=== PATIENT | female | born 1955 | race Caucasian/White ===

== ENCOUNTER → 2016-11-28 | Day surgery (SDC) | payer OTHER ==
[2016-11-16 10:49] VITALS: Ht 165.1 cm; Wt 95.0 kg
[~2016-11-28] VITALS: Ht 165.1 cm; Wt 95.0 kg
[~2016-11-28] MED LIST: 500ML BSS 0.3ML EPI 1:1000PF IRRIG ONE; ACETAMINOPHEN 325 MG TAB PO PRN; AMVISC PLUS 0.8ML SYRINGE INT OCU ONE; ATROPINE SULFATE 0.1 MG/ML 5ML SYR IV PRN; BSS FLUSH ONE; CARB25TA12 PO; CHOL1CAP95; EpHEDrine SULFATE INJ 50 MG/ML AMP IV PRN; EpINEphrine INJ 1MG/ML AMP 1 MG/ML AMP ONE; GLYB5TAB8 PO; HYDR50TA3 PO; LACTATED RINGER'S 1000ML 500 ML IV SCH; LIDOCAINE 3.5% OPH GEL PER APPLICATION CHARGE ONE; LIDOCAINE HCL 1% MPF 2 ML VIAL ONE; MCR5 PO; METF1TAB53 PO; MIDAZOLAM HCL 1 MG/ML 2ML VIAL ONE; NAPR-1169 PO; OCUCOAT 1 ML SOLN IO ONE; PHENYLEPHRINE HCL 10% OP SOLN 5 ML BTL OPL ONE; POTA10TA PO; POVIDONE-IODINE OP SOLN 30 ML BTL ONE; PROPARACAINE 0.5% OP SOLN PER DROP CHARGE OPL SCH; PROPARACAINE HCL 0.5% OP SOLN 15 ML BTL OPL ONE; RANI300T PO; TOBRAMYCIN/DEXAMETHASONE OPH OINT PER APPLN CHARGE ONE
[2016-11-28] MEDS: PHENYLEPHRINE HCL 2.5% OP SOLN PER DROP CHARGE OPL SCH ×2 (06:39→06:44)
[2016-11-28] MEDS: TROPICAMIDE 1% OP SOLN PER DROP CHARGE OPL SCH ×2 (06:40→06:45)
[2016-11-28] MEDS: CYCLOPENTOLATE HCL 1% OP SOLN PER DROP CHARGE OPL SCH ×2 (06:41→06:46)
[2016-11-28] MEDS: KETOROLAC 0.5% OP SOLN PER DROP CHARGE OPL SCH ×2 (06:42→06:47)
[2016-11-28] MEDS: GATIFLOXACIN OP SOLN PER DROP CHARGE OPL SCH ×2 (06:43→06:53)
--- NOTE | 2016-11-28 07:16 | History & Physical Bridge - SC ---
H&P Re-Evaluation Bridge Note: I have examined the patient, reviewed the History & Physical and in the interval since the performance of the History & Physical I have noted the following changes of clinical significance: Diagnosis: Left Cataract Procedure: Left Cataract Removal with femtosecond laser with Lens Implant No changes noted
--- NOTE | 2016-11-28 08:08 | Discharge Instructions-SurgCtr ---
Discharge Instructions Date of Service Nov 28, 2016. Visit Reason for Visit: Cataract Left Eye Discharge Discharge Diagnosis / Problem: cataract Discharge Goals Goal(s): Improve function Medications Stopped Medications Name(s): Has been off Metformin x 3 days. Activity Recommendations Activity Limitations: per Instructions/Follow-up section Anesthesia . Post Anesthesia Instructions: If you have had General Anesthesia or IV Sedation: * Do not drive today. * Resume driving when surgeon permits. * Do not make important decisions or sign legal documents today. * Call surgeon for: 1. Temperature elevations greater than 101 degrees F. 2. Uncontrollable pain. 3. Excessive bleeding. 4. Persistent nausea and vomiting. 5. Medication intolerance (nausea, vomiting or rash). * For nausea and vomiting use only clear liquids such as: tea, soda, bouillon until nausea subsides, then gradually increase diet as tolerated. * If you have any concerns or questions, call your surgeon's office. If physician is unavailable and it is an emergency, call 911 or go to the nearest emergency room. . Instructions / Follow-Up Instructions / Follow-Up ACTIVITY RECOMMENDATIONS: * No strenuous lifting, jogging or running for 4 days * No swimming or yard work for 1 week. * Limited bending is permitted, such as putting on shoes. RETURN TO SCHOOL/WORK: No work until seen by physician in office. MEDICATIONS: Resume previous medications unless instructed otherwise by your surgeon. This includes eye drops for glaucoma. Zymaxid/Gatifloxacin (ahn cap) - one drop every 2 hours until bedtime Nevanac/Ilevro/Prolensa/Ketorolac (vargas cap) - one drop every 4 hours until bedtime Prednisolone (white/pink cap, SHAKE WELL) - one drop every 2 hours until bedtime Starting tomorrow - all 3 drops every 4 hours until seen in the office Optive drops - as needed for discomfort SPECIAL CARE INSTRUCTIONS: * Wear eyeshield when sleeping, for four nights. * You may wear your own glasses or sunglasses while awake. * You may read or watch TV * You may shower and wash your face, but be gentle around the eye and pat dry. * Blurry vision and mild irritation are normal. * Call office if pain is more severe or vision becomes dark at . FOLLOW UP VISIT: Follow-up with Dr Marcovitch tomorrow. Diet Recommendations Home Diet: resume previous diet Procedures Procedures Performed: Left Cataract Phacoemulsification With Intraocular Lens Implant Pending Studies Studies pending at discharge: no Medical Emergencies . Who to Call and When: Medical Emergencies: If at any time you feel your situation is an emergency, please call 911 immediately. . Non-Emergent Contact Non-Emergency issues call your: Road [employer]iler . . "Provider Documentation" section prepared by Dayo Garg.
[2016-11-28 08:10] VITALS: TEMP 36.4
--- NOTE | 2016-11-28 08:10 | [facility] Operative Report ---
Operative Report Date of Service Nov 28, 2016. Operative Report 1. PREOPERATIVE DIAGNOSIS: Cataract of the left eye. 2. POSTOPERATIVE DIAGNOSIS: Same. 3. PROCEDURE: Phacoemulsification with femtosecond laser intraocular lens implantation of the left eye. SURGEON: Dr. Dayo Garg. ANESTHESIA: Topical Lidocaine gel, 1% Non- Preserved intracameral Lidocaine, and monitored intravenous sedation. INDICATIONS FOR THE PROCEDURE: The patient is a 61 - year-old female with a history of cataract of the left eye causing significant visual impairment. The details of the proposed procedure were explained to the patient who asked appropriate questions and following discussion of all risks, benefits and alternatives agreed to have the procedure done. 4. OPERATION AND FINDINGS: DESCRIPTION OF PROCEDURE: After informed consent was obtained, the patient was brought to the Laser room at the [facility]. After docking with the LenSx Laser the capsulorhexis, lens chopping, and primary corneal incision were accomplished. The patient was brought to the Operating Room at the [facility]. The patient was placed in a supine position and then the left eye was prepped and draped in the usual sterile fashion for intraocular surgery. A drop of topical Lidocaine gel was placed in the operative eye. A wire lid speculum was then placed in the fornices. A corneal paracentesis was then created temporally. The Non-Preserved Lidocaine was then instilled into the anterior chamber. The anterior chamber was then pressurized with viscoelastic. The corneal incision was opened with a Vicente spatula. A cystotome was inserted into the anterior chamber and used to verify a continuous curvilinear capsulorrhexis. Hydrodissection was accomplished with balanced salt solution. Phacoemulsification of the lens nucleus was then performed in a standard [id number] technique. The phaco time was 22 seconds with an average power of 5 %. The remaining cortical material was removed using irrigation aspiration. The capsular bag was then filled with viscoelastic. A Bausch & Lomb MI60L +22.0 diopters lens was then loaded into the injector and injected into the capsular bag. The remaining viscoelastic was removed with the irrigation aspiration handpiece. The wound was hydrated and then checked and found to be watertight. The intraocular pressure was checked and found to be adequate. The wire lid speculum was removed and the patient's face was cleaned and dried. TobraDex ointment was placed in the inferior fornix. The patient was discharged to the Recovery Room having tolerated the procedure well. There were no complications. The patient will be seen tomorrow in the office for follow-up. I attest to the content of the Intraoperative Record and any orders documented therein. Any exceptions are noted below.
[2016-11-28 08:28] VITALS: BP 156/86; PULSE 58; O2SAT 99
--- NOTE | 2016-11-28 08:35 | Anesthesia Progress Nt - [facility] ---
Anesthesia Post Op Note Date & Time Nov 28, 2016 at 08:35 Vital Signs Pain Intensity: 0 Vital Signs Past 12 Hours Date Time Temp Pulse Resp B/P Pulse Ox O2 Delivery O2 Flow Rate FiO2 11/28/16 08:28 58 16 156/86 99 Room Air 11/28/16 08:10 36.4 62 16 161/82 99 Room Air 11/28/16 07:47 56 16 160/80 95 11/28/16 07:42 48 16 155/64 97 11/28/16 06:28 36.3 61 16 152/89 98 Room Air Notes Mental Status: alert / awake / arousable, participated in evaluation Pt Amnestic to Procedure: Yes Nausea / Vomiting: adequately controlled Pain: adequately controlled Airway Patency, RR, SpO2: stable & adequate BP & HR: stable & adequate Hydration State: stable & adequate Anesthetic Complications: no major complications apparent
== END | disposition home or self-care (01) ==
LOC: X.SURG 06:02
PROVIDERS: ATTEND Ophthalmology
DX: H26.9 Unspecified cataract (principal)

== ENCOUNTER 2016-12-30 13:31 | Emergency (ER) | payer OTHER ==
[~2016-12-30] VITALS: Ht 165.1 cm; Wt 95.5 kg
[~2016-12-30 13:31] MED LIST changes: -500ML BSS 0.3ML EPI 1:1000PF IRRIG ONE; -ACETAMINOPHEN 325 MG TAB PO PRN; -AMVISC PLUS 0.8ML SYRINGE INT OCU ONE; -ATROPINE SULFATE 0.1 MG/ML 5ML SYR IV PRN; -BSS FLUSH ONE; -CHOL1CAP95; -EpHEDrine SULFATE INJ 50 MG/ML AMP IV PRN; -EpINEphrine INJ 1MG/ML AMP 1 MG/ML AMP ONE; -LACTATED RINGER'S 1000ML 500 ML IV SCH; -LIDOCAINE 3.5% OPH GEL PER APPLICATION CHARGE ONE; -LIDOCAINE HCL 1% MPF 2 ML VIAL ONE; -MIDAZOLAM HCL 1 MG/ML 2ML VIAL ONE; -OCUCOAT 1 ML SOLN IO ONE; -PHENYLEPHRINE HCL 10% OP SOLN 5 ML BTL OPL ONE; -POVIDONE-IODINE OP SOLN 30 ML BTL ONE; -PROPARACAINE 0.5% OP SOLN PER DROP CHARGE OPL SCH; -PROPARACAINE HCL 0.5% OP SOLN 15 ML BTL OPL ONE; -TOBRAMYCIN/DEXAMETHASONE OPH OINT PER APPLN CHARGE ONE
[2016-12-30 13:40] VITALS: TEMP 36.6; Ht 165.1 cm; Wt 95.5 kg
--- NOTE | 2016-12-30 15:32 | DIAGNOSTIC IMAGING REPORT ---
ABDOMEN 2VIEW W/PA CHEST RTN CLINICAL HISTORY: Lower abdominal/rectal pain COMPARISON STUDY: No previous studies for comparison. FINDINGS: The erect chest reveals no free air. There is no focal pulmonary consolidation. Erect and supine views the abdomen reveal moderate fecal retention. There are no transition zones to indicate bowel obstruction. There is scattered colonic air-fluid levels. There are clustered right upper quadrant calcifications, possibly representing gallstones. IMPRESSION: 1. Moderate fecal retention. Correlate clinically in regards to constipation 2. No conventional radiographic evidence of bowel obstruction. No evidence of free air 3. Possible cholelithiasis Electronically signed by: Jose Lin M.D. 12/30/2016 3:30 PM Dictated Date/Time: 12/30/2016 3:28 PM
[2016-12-30] MEDS ORDERED: POLYETHYLENE (MIRALAX) 17 GM PACK PO STA (16:01)
[2016-12-30 18:00] VITALS: BP 142/78; PULSE 70; O2SAT 99
--- NOTE | 2016-12-30 19:23 | EMERGENCY ROOM VISIT NOTE ---
History Report prepared by Aramibchrissie: Kendra Vigil Under the Supervision of: Dr. Leonel Gómez M.D. First contact with patient: 14:57 Chief Complaint: RECTAL PAIN Stated Complaint: BOWEL BLOCKAGE Nursing Triage Summary: Pt presents with rectal pain since last night. Pt states, "I think I am impacted. I took a stool softner and drank some prune juice. I have some loose stuff, but the hard stuff is still there." Last normal bm was 4 days ago. History of Present Illness The patient is a 61 year old female who presents to the Emergency Room with complaints of persistent rectal pain that started last night. She rates her discomfort as an 8/10. She has tried a suppository and states she has had " small bowel movements", but now she is mostly experiencing small outputs of liquid stool. Her last normal bowel movement was 4 days ago. She reports "I can still feel hard stuff blocked up in there". She denies any abdominal pain or vomiting. She does have some low back pain which she thinks is from her constipation. Her only previous abdominal surgery was a hysterectomy several years ago. Source of History: patient Onset: last night Position: other (rectum) Symptom Intensity: 8/10 Timing: other (persistent) Modifying Factors (Relieving): other (suppository) Associated Symptoms: + back pain (low back pain), + nausea, No abdominal pain, No fevers, No vomiting Review of Systems See HPI for pertinent positives & negatives. A total of 10 systems reviewed and were otherwise negative. Past Medical & Surgical Medical Problems: (1) Diabetes mellitus (2) GERD (gastroesophageal reflux disease) Surgical Problems: (1) History of hysterectomy Social History Smoking Status: Never Smoker Alcohol Use: occasionally Drug Use: none Marital Status: Housing Status: lives with family Occupation Status: retired Current/Historical Medications Scheduled Glyburide (Glyburide), 2 TAB PO QAM Glyburide (Micronase), 5 MG PO QPM Hydrochlorothiazide (Hctz), 50 MG PO QAM Metformin Hcl (Glucophage Ext Rel), 1,000 MG PO BID Potassium Chloride (K-Tabs), 1 TAB PO HS Scheduled PRN Carbidopa/Levodopa (Sinemet 25MG/100MG), 1 TAB PO HS PRN for RESTLESS LEG SYNDROME Naproxen (Naprosyn), 500 MG PO BID PRN for Pain Ranitidine Hcl (Zantac), 300 MG PO HS PRN for Indigestion Allergies Coded Allergies: NO KNOWN DRUG ALLERGIES (Verified Allergy, Unknown, ., 11/28/16) Physical Exam Vital Signs Date Time Temp Pulse Resp B/P Pulse Ox O2 Delivery O2 Flow Rate FiO2 12/30/16 18:00 70 18 142/78 99 12/30/16 16:00 82 17 151/80 99 Room Air 12/30/16 13:40 36.6 105 20 156/82 97 Room Air Physical Exam Constitutional: Vital signs reviewed. Eyes: Pupils are equal round reactive to light. Conjunctiva are noninjected. ENT: Pharynx is clear without erythema or exudate. Mucous membranes are moist. Neck supple without meningeal signs. Respiratory: Clear to auscultation bilaterally. Breath sounds are equal bilaterally. Cardiovascular: Regular rate and rhythm. No rubs or gallops. GI: Soft, nondistended and nontender. Bowel sounds are present. Musculoskeletal: No peripheral edema. No lower extremity tenderness. Integumentary: No cyanosis. Neurological: The patient is awake and alert. No focal deficits. Psychiatric: Normal affect. Medical Decision & Procedures ER Provider Diagnostic Interpretation: This X-Ray was reviewed and interpreted by myself and the radiologist. ABDOMEN 2VIEW W/PA CHEST RTN CLINICAL HISTORY: Lower abdominal/rectal pain COMPARISON STUDY: No previous studies for comparison. FINDINGS: The erect chest reveals no free air. There is no focal pulmonary consolidation. Erect and supine views the abdomen reveal moderate fecal retention. There are no transition zones to indicate bowel obstruction. There is scattered colonic air-fluid levels. There are clustered right upper quadrant calcifications, possibly representing gallstones. IMPRESSION: 1. Moderate fecal retention. Correlate clinically in regards to constipation 2. No conventional radiographic evidence of bowel obstruction. No evidence of free air 3. Possible cholelithiasis Electronically signed by: Jose Lin M.D. 12/30/2016 3:30 PM Medications Administered Medications (Trade) Dose Ordered Sig/Damian Route Start Time Stop Time Status Last Admin Dose Admin Polyethylene (Miralax Powder Packet) 17 gm ONE STAT PO 12/30/16 16:01 12/30/16 16:02 DC 12/30/16 17:35 17 GM ED Course 1458: The patient was evaluated in room B8. A complete history and physical exam was performed. 1601: Miralax Powder Packet 17 gm PO. 1620: I reevaluated the patient. I let her know her X-Ray results and we will do an enema. 1740: I reevaluated the patient. She had a large bowel movement and feels much better now. I discussed her discharge instructions and she verbalized complete understanding and agreement. Medical Decision This is a 61-year-old female presents with rectal discomfort. Differential diagnosis includes fecal impaction, constipation, obstipation, bowel obstruction , mass I did perform a limited focused review of portions of the patient's old chart on the electronic medical record. The patient has had no recent pertinent visits to this hospital. I did evaluate the patient as noted above. The patient is presenting with constipation and rectal discomfort. She has no abdominal pain or vomiting although she does state she has some nausea. I did order and personally review the patient's abdominal and chest x-rays as described above. She has significant constipation on her x-ray. There is no signs of free air or obstruction. I did discuss the x-rays with the patient. I did order a soapsuds enema and MiraLAX. She did have a large bowel movement here and felt immediately better. I did advise her to continue MiraLAX at home and to follow up with her doctor. She was discharged in good condition and given return instructions as outlined below. Impression Primary Impression: Fecal impaction Additional Impression: Constipation Scribe Attestation The scribe's documentation has been prepared under my direct and personally reviewed by me in its entirety. I confirm that the note above accurately reflects all work, treatment, procedures, and medical decision making performed by me. Departure Information Dispostion Home / Self-Care Referrals Rainer Bowman PA-C (PCP) Patient Instructions Constipation, My [facility] Additional Instructions You have been examined and treated today on an emergency basis only. This is not a substitute for, or an effort to provide, complete comprehensive medical care. It is impossible to recognize and treat all injuries or illnesses in a single emergency department visit. It is therefore important that you follow up closely with your physician. Call as soon as possible for an appointment. Return for worsening symptoms or if you develop fever, vomiting, abdominal pain or any other concerning symptoms. Problem Qualifiers Additional Impression: Constipation Constipation type: unspecified constipation type Qualified Codes: K59.00 - Constipation, unspecified
[2017-02-01] MEDS ORDERED: CHOL1CAP95 (06:29)
== END 2016-12-30 18:00 | disposition home or self-care (01) ==
LOC: C.EDB 13:32
DX: K59.00 Constipation, unspecified (principal); E11.9 Type 2 diabetes mellitus without complications; K21.9 Gastro-esophageal reflux disease without esophagitis; Z90.710 Acquired absence of both cervix and uterus; Z79.84 Long term (current) use of oral hypoglycemic drugs; Z79.899 Other long term (current) drug therapy

== ENCOUNTER → 2017-02-01 | Day surgery (SDC) | payer OTHER ==
[2017-01-15 11:37] VITALS: Ht 165.1 cm; Wt 95.0 kg
[~2017-02-01] VITALS: Ht 165.1 cm; Wt 95.0 kg
[~2017-02-01] MED LIST changes: +500ML BSS 0.3ML EPI 1:1000PF IRRIG ONE; +ACETAMINOPHEN 325 MG TAB PO PRN; +AMVISC PLUS 0.8ML SYRINGE INT OCU ONE; +ATROPINE SULFATE 0.1 MG/ML 5ML SYR IV PRN; +BSS FLUSH ONE; +CHOL1CAP95; +EpHEDrine SULFATE INJ 50 MG/ML AMP IV PRN; +EpINEphrine INJ 1MG/ML AMP 1 MG/ML AMP ONE; +FENTANYL CITRATE INJ 50 MCG/1 ML 2 ML VIAL IV PRN; +FLUMAZENIL 0.1 MG/1 ML 10 ML VIAL IV PRN; +HYDROmorphone INJ 2 MG/ML SYR/VIAL IV PRN; +LABETALOL HCL IV 5 MG/ML 20ML IV PRN; +LACTATED RINGER'S 1000ML 500 ML IV SCH; +LIDOCAINE 3.5% OPH GEL PER APPLICATION CHARGE ONE; +LIDOCAINE HCL 1% MPF 2 ML VIAL ONE; +MEPERIDINE HCL 25 MG/ML CARP IV PRN; +MIDAZOLAM HCL 1 MG/ML 2ML VIAL ONE; +NALOXONE HCL 0.4 MG/1 ML VIAL/CARP IV PRN; +OCUCOAT 1 ML SOLN IO ONE; +ONDANSETRON INJ 2 MG/ML 2 ML VIAL IV PRN; +PHENYLEPHRINE 100MCG/ML 5ML SYR IV PRN; +POVIDONE-IODINE OP SOLN 30 ML BTL ONE; +PROPARACAINE 0.5% OP SOLN PER DROP CHARGE OPR SCH; +TOBRAMYCIN/DEXAMETHASONE OPH OINT PER APPLN CHARGE ONE
[2017-02-01] MEDS: PHENYLEPHRINE HCL 2.5% OP SOLN PER DROP CHARGE OPR SCH ×2 (06:40→06:46)
[2017-02-01] MEDS: TROPICAMIDE 1% OP SOLN PER DROP CHARGE OPR SCH ×2 (06:41→06:47)
[2017-02-01] MEDS: CYCLOPENTOLATE HCL 1% OP SOLN PER DROP CHARGE OPR SCH ×2 (06:42→06:48)
[2017-02-01] MEDS: KETOROLAC 0.5% OP SOLN PER DROP CHARGE OPR SCH ×2 (06:43→06:49)
[2017-02-01] MEDS: GATIFLOXACIN OP SOLN PER DROP CHARGE OPR SCH ×2 (06:44→06:54)
--- NOTE | 2017-02-01 06:58 | History & Physical Bridge - [place] ---
H&P Re-Evaluation Bridge Note: I have examined the patient, reviewed the History & Physical and in the interval since the performance of the History & Physical I have noted the following changes of clinical significance: No changes noted
--- NOTE | 2017-02-01 07:46 | Discharge Instructions-SurgCtr ---
Discharge Instructions Date of Service February 01, 2017. Visit Reason for Visit: Cataract Right Eye Discharge Discharge Diagnosis / Problem: cataract Discharge Goals Goal(s): Improve function Medications Stopped Medications Name(s): metformin stopped Sunday Activity Recommendations Activity Limitations: per Instructions/Follow-up section Anesthesia . Post Anesthesia Instructions: If you have had General Anesthesia or IV Sedation: * Do not drive today. * Resume driving when surgeon permits. * Do not make important decisions or sign legal documents today. * Call surgeon for: 1. Temperature elevations greater than 101 degrees F. 2. Uncontrollable pain. 3. Excessive bleeding. 4. Persistent nausea and vomiting. 5. Medication intolerance (nausea, vomiting or rash). * For nausea and vomiting use only clear liquids such as: tea, soda, bouillon until nausea subsides, then gradually increase diet as tolerated. * If you have any concerns or questions, call your surgeon's office. If physician is unavailable and it is an emergency, call 911 or go to the nearest emergency room. . Instructions / Follow-Up Instructions / Follow-Up ACTIVITY RECOMMENDATIONS: * No strenuous lifting, jogging or running for 4 days * No swimming or yard work for 1 week. * Limited bending is permitted, such as putting on shoes. RETURN TO SCHOOL/WORK: No work until seen by physician in office. MEDICATIONS: Resume previous medications unless instructed otherwise by your surgeon. This includes eye drops for glaucoma. Zymaxid/Gatifloxacin (ahn cap) - one drop every 2 hours until bedtime Nevanac/Ilevro/Prolensa/Ketorolac (vargas cap) - one drop every 4 hours until bedtime Prednisolone (white/pink cap, SHAKE WELL) - one drop every 2 hours until bedtime Starting tomorrow - all 3 drops every 4 hours until seen in the office Optive drops - as needed for discomfort SPECIAL CARE INSTRUCTIONS: * Wear eyeshield when sleeping, for four nights. * You may wear your own glasses or sunglasses while awake. * You may read or watch TV * You may shower and wash your face, but be gentle around the eye and pat dry. * Blurry vision and mild irritation are normal. * Call office if pain is more severe or vision becomes dark at . FOLLOW UP VISIT: Follow-up with Dr Garg tomorrow. Diet Recommendations Home Diet: resume previous diet Procedures Procedures Performed: Right Cataract Phacoemulsification With Intraocular Lens Implant Pending Studies Studies pending at discharge: no Medical Emergencies . Who to Call and When: Medical Emergencies: If at any time you feel your situation is an emergency, please call 911 immediately. . Non-Emergent Contact Non-Emergency issues call your: Button Riveter . . "Provider Documentation" section prepared by Dayo Garg. .
--- NOTE | 2017-02-01 07:47 | [facility] Operative Report ---
Operative Report Date of Service February 01, 2017. Operative Report 1. PREOPERATIVE DIAGNOSIS: Cataract of the right eye. 2. POSTOPERATIVE DIAGNOSIS: Same. 3. PROCEDURE: Phacoemulsification with intraocular lens implantation of the right eye. SURGEON: Dr. Dayo Garg. ANESTHESIA: Topical Lidocaine gel, 1% Non- Preserved intracameral Lidocaine, and monitored intravenous sedation. INDICATIONS FOR THE PROCEDURE: The patient is a 61 - year-old female with a history of cataract of the right eye causing significant visual impairment. The details of the proposed procedure were explained to the patient who asked appropriate questions and following discussion of all risks, benefits and alternatives agreed to have the procedure done. 4. OPERATION AND FINDINGS: DESCRIPTION OF PROCEDURE: After informed consent was obtained, the patient was brought to the Operating Room at the [facility]. The patient was placed in a supine position and then the right eye was prepped and draped in the usual sterile fashion for intraocular surgery. A drop of topical Lidocaine gel was placed in the operative eye. A wire lid speculum was then placed in the fornices. A corneal paracentesis was then created temporally. The Non-Preserved Lidocaine was then instilled into the anterior chamber. The anterior chamber was then pressurized with viscoelastic. A 2.0 mm clear corneal incision was then created temporally. A cystotome was inserted into the anterior chamber and used to create a tear in the anterior lens capsule. This capsular tear was then used to create a small flap and the flap was dragged in a counterclockwise direction in order to create a continuous curvilinear capsulorrhexis. Hydrodissection was accomplished with balanced salt solution. Phacoemulsification of the lens nucleus was then performed in a standard [id number] technique. The phaco time was 22 seconds with an average power of 7 %. The remaining cortical material was removed using irrigation aspiration. The capsular bag was then filled with viscoelastic. A Bausch & Lomb MI60L +22.0 diopters lens was then loaded into the injector and injected into the capsular bag. The remaining viscoelastic was removed with the irrigation aspiration handpiece. The wound was hydrated and then checked and found to be watertight. The intraocular pressure was checked and found to be adequate. The wire lid speculum was removed and the patient's face was cleaned and dried. TobraDex ointment was placed in the inferior fornix. The patient was discharged to the Recovery Room having tolerated the procedure well. There were no complications. The patient will be seen tomorrow in the office for follow-up. I attest to the content of the Intraoperative Record and any orders documented therein. Any exceptions are noted below.
--- NOTE | 2017-02-01 08:01 | Anesthesia Progress Nt - [facility] ---
Anesthesia Post Op Note Date & Time February 01, 2017 at 08:01 Vital Signs Pain Intensity: 0 Vital Signs Past 12 Hours Date Time Temp Pulse Resp B/P Pulse Ox O2 Delivery O2 Flow Rate FiO2 02/01/17 07:52 36.5 57 16 173/83 97 Room Air 02/01/17 06:30 36.4 55 16 144/83 98 Room Air Notes Mental Status: alert / awake / arousable, participated in evaluation Pt Amnestic to Procedure: Yes Nausea / Vomiting: adequately controlled Pain: adequately controlled Airway Patency, RR, SpO2: stable & adequate BP & HR: stable & adequate Hydration State: stable & adequate Anesthetic Complications: no major complications apparent The patient was told to take her DM meds when she goes home.
[2017-02-01 08:10] VITALS: BP 169/82; PULSE 60; TEMP 36.5; O2SAT 96
== END | disposition home or self-care (01) ==
LOC: X.SURG 06:10
PROVIDERS: ATTEND Ophthalmology
DX: H25.9 Unspecified age-related cataract (principal)

== ENCOUNTER → 2017-12-21 | Outpatient (CLI) | payer OTHER ==
[~2017-12-21] MED LIST changes: -500ML BSS 0.3ML EPI 1:1000PF IRRIG ONE; -ACETAMINOPHEN 325 MG TAB PO PRN; -AMVISC PLUS 0.8ML SYRINGE INT OCU ONE; -ATROPINE SULFATE 0.1 MG/ML 5ML SYR IV PRN; -BSS FLUSH ONE; -EpHEDrine SULFATE INJ 50 MG/ML AMP IV PRN; -EpINEphrine INJ 1MG/ML AMP 1 MG/ML AMP ONE; -FENTANYL CITRATE INJ 50 MCG/1 ML 2 ML VIAL IV PRN; -FLUMAZENIL 0.1 MG/1 ML 10 ML VIAL IV PRN; -HYDROmorphone INJ 2 MG/ML SYR/VIAL IV PRN; -LABETALOL HCL IV 5 MG/ML 20ML IV PRN; -LACTATED RINGER'S 1000ML 500 ML IV SCH; -LIDOCAINE 3.5% OPH GEL PER APPLICATION CHARGE ONE; -LIDOCAINE HCL 1% MPF 2 ML VIAL ONE; -MEPERIDINE HCL 25 MG/ML CARP IV PRN; -MIDAZOLAM HCL 1 MG/ML 2ML VIAL ONE; -NALOXONE HCL 0.4 MG/1 ML VIAL/CARP IV PRN; -OCUCOAT 1 ML SOLN IO ONE; -ONDANSETRON INJ 2 MG/ML 2 ML VIAL IV PRN; -PHENYLEPHRINE 100MCG/ML 5ML SYR IV PRN; -POVIDONE-IODINE OP SOLN 30 ML BTL ONE; -PROPARACAINE 0.5% OP SOLN PER DROP CHARGE OPR SCH; -TOBRAMYCIN/DEXAMETHASONE OPH OINT PER APPLN CHARGE ONE
[2017-12-21 13:15] LABS: ALBUMIN 3.6 gm/dl (3.4-5.0); ALT/SGPT 49 U/L (12-78); AST/SGOT 29 U/L (15-37); BLOOD UREA NITROGEN 13 mg/dl (7-18); CALCIUM 9.3 mg/dl (8.5-10.1); CARBON DIOXIDE 22 mmol/L (21-32); CREATININE 0.91 mg/dl (0.60-1.20); GLUCOSE 234 mg/dl (70-99); POTASSIUM 4.1 mmol/L (3.5-5.1); SODIUM 138 mmol/L (136-145)
[2017-12-21 13:26] LABS: ALKALINE PHOSPHATASE 180 U/L (45-117); CHOLESTEROL 224 mg/dl (0-200); LDL CHOLESTEROL CALCULATED 142 mg/dl; TOTAL PROTEIN 7.1 gm/dl (6.4-8.2)
== END | disposition home or self-care (01) ==
LOC: C.LABPVFM 07:49
PROVIDERS: ATTEND Family Medicine
DX: E78.5 Hyperlipidemia, unspecified (principal)

== ENCOUNTER 2018-01-10 12:28 | Emergency (ER) | payer OTHER ==
[~2018-01-10] VITALS: Ht 162.6 cm; Wt 91.0 kg
[2018-01-10 12:43] VITALS: TEMP 36.5; Ht 162.6 cm; Wt 91.0 kg
[2018-01-10] MEDS ORDERED: SODIUM CHLORIDE 0.9% 1000ML 500 ML IV ONE (13:45)
[2018-01-10] MEDS ORDERED: KETOROLAC TROMETHAMINE 30 MG/ML VIAL IV STA (13:50)
[2018-01-10] MEDS ORDERED: ONDANSETRON INJ 2 MG/ML 2 ML VIAL IV STA (13:50)
[2018-01-10] MEDS ORDERED: OPTIRAY 320 IV PRN (14:00)
--- NOTE | 2018-01-10 14:21 | EMERGENCY ROOM VISIT NOTE ---
History Report prepared by Dioni: Dima Christopher Under the Supervision of: Dr. Mike Almonte M.D. First contact with patient: 13:48 Chief Complaint: BACK PAIN Stated Complaint: BACK PAIN, RIGHT SIDE History of Present Illness The patient is a 62 year old female who presents to the Emergency Room with complaints of worsening right sided back pain starting yesterday. The patient currently rates her pain as an 8/10 in severity. She states that the pain is an ache. She states that she has a history of kidney stones on the right side which passed on their own, and the patient reports that the pain is similar to her last kidney stone. The patient denies any hematuria or pain with urination. The patient states that she took 2 ibuprofen around 0900 this morning, and she states that this did not help with the pain. She notes that she has been having some nausea. The patient states that she has not been lifting anything heavy recently. She states that she has a history of diabetes, and she was recently put on Lantus. Source of History: patient Onset: yesterday Position: back (right side) Symptom Intensity: 8/10 Quality: ache Timing: worsening Associated Symptoms: + nausea, No urinary symptoms Review of Systems See HPI for pertinent positives and negatives. A total of ten systems were reviewed and were otherwise negative. Past Medical & Surgical Medical Problems: (1) Diabetes mellitus (2) GERD (gastroesophageal reflux disease) Surgical Problems: (1) History of hysterectomy Social History Smoking Status: Never Smoker Alcohol Use: occasionally Drug Use: none Marital Status: Housing Status: lives with family Occupation Status: retired Current/Historical Medications Scheduled Glyburide (Glyburide), 2 TAB PO QAM Glyburide (Micronase), 5 MG PO QPM Hydrochlorothiazide (Hctz), 50 MG PO QAM Insulin Glargine (Lantus Solostar), 10 UNITS SC QPM Metformin Hcl (Glucophage Ext Rel), 1,000 MG PO BID Potassium Chloride (K-Tabs), 1 TAB PO HS Scheduled PRN Carbidopa/Levodopa (Sinemet 25MG/100MG), 1 TAB PO HS PRN for RESTLESS LEG SYNDROME Naproxen (Naprosyn), 500 MG PO BID PRN for Pain Ranitidine Hcl (Zantac), 300 MG PO HS PRN for Indigestion Miscellaneous Medications Cholecalciferol (Vitamin D3) Allergies Coded Allergies: NO KNOWN DRUG ALLERGIES (Verified Allergy, Unknown, ., 01/10/18) Physical Exam Vital Signs Date Time Temp Pulse Resp B/P (MAP) Pulse Ox O2 Delivery O2 Flow Rate FiO2 01/10/18 16:29 70 18 190/90 98 192/81 01/10/18 15:15 64 18 168/94 98 Room Air 01/10/18 12:43 36.5 78 16 157/92 98 Room Air Physical Exam GENERAL: Awake, alert, fatigued, uncomfortable-appearing, in no distress HENT: Normocephalic, atraumatic. Oropharynx unremarkable. EYES: Normal conjunctiva. Sclera non-icteric. NECK: Supple. No nuchal rigidity. FROM. No JVD. RESPIRATORY: Clear to auscultation. CARDIAC: Regular rate, normal rhythm. Extremities warm and well perfused. Pulses equal. ABDOMEN: Soft, non-distended. No tenderness to palpation. No rebound or guarding. No masses. RECTAL: Deferred. MUSCULOSKELETAL: Mild right CVA tenderness. Chest examination reveals no tenderness. The back is symmetrical on inspection without obvious abnormality. No joint edema. LOWER EXTREMITIES: Calves are equal size bilaterally and non-tender. No edema. No discoloration. NEURO: Normal sensorium. No sensory or motor deficits noted. SKIN: No rash or jaundice noted. Medical Decision & Procedures ER Provider Diagnostic Interpretation: Radiology results as stated below per my review and radiologist interpretation: ABD/PELVIS IV CONTRAST ONLY CLINICAL HISTORY: 62 years-old Female presenting with right flank pain. TECHNIQUE: Multidetector CT of the abdomen and pelvis was performed after the administration of intravenous contrast. IV contrast: 93 mL of Optiray 320. A dose lowering technique was used consistent with the principles of ALARA (as low as reasonably achievable). COMPARISON: None. CT DOSE (mGy.cm): The estimated cumulative dose is 984.90 mGy.cm. 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 Lung bases: Minimal basilar opacities, likely atelectasis. Normal heart size. No pericardial or pleural effusion. Liver: Normal morphology. No liver lesion. Patent hepatic vasculature. Biliary: Mild intrahepatic biliary ductal prominence centrally. No extrahepatic bladder ductal dilatation. Gallbladder contains gallstones. Pancreas: The pancreatic tail is either atrophic or surgically absent. Spleen: Normal. Adrenal glands: Normal. Kidneys and ureters: Well-defined hypodensity in the left kidney likely stable cyst. Punctate nonobstructing calculus in the left kidney. No hydronephrosis. Mild urothelial thickening and periureteral fat stranding suggested along the courses of the ureters greater on the right. Bladder: Circumferential bladder wall thickening. Pelvic organs: Uterus surgically absent. Bowel: Moderate stool burden in the rectosigmoid colon. No bowel obstruction. Peritoneal cavity: No free fluid or intraperitoneal gas. Lymph nodes: Few enlarged lymph nodes in the mark hepatis and portacaval region, an index node measuring 8 mm in the short axis (series 3 image 113). No additional sites in the abdomen or pelvis of enlarged lymph nodes. Vasculature: Atherosclerosis of the normal caliber abdominal aorta. IVC patent. Abdominal wall: Postsurgical changes of the infraumbilical abdominal wall. A surgical mesh may be in place. Nonspecific body wall edema. Musculoskeletal: Degenerative changes of the spine. IMPRESSION: 1. Circumferential bladder wall thickening and mild urothelial thickening and periureteral fat stranding. Subtle findings could suggest cystitis with upper tract involvement or, less likely, recently passed calculus. 2. Nonobstructive left renal calculus. 3. Cholelithiasis. Mild central intrahepatic biliary ductal dilatation suggested. No CT evidence of extrahepatic ductal dilatation or choledocholithiasis. 4. Suspicious lymph node enlargement in the mark hepatis and portacaval regions. These may be reactive. Attention on follow-up. Electronically signed by: James Ballard M.D. 01/10/2018 3:52 PM Dictated Date/Time: 01/10/2018 3:31 PM Laboratory Results 01/10/18 14:05 01/10/18 14:05 Test 01/10/18 14:05 Red Blood Count 4.59 M/uL (4.2-5.4) Mean Corpuscular Volume 90.2 fL (80-100) Mean Corpuscular Hemoglobin 30.1 pg (25-34) Mean Corpuscular Hemoglobin Concent 33.3 g/dl (32-36) RDW Standard Deviation 43.0 fL (36.4-46.3) RDW Coefficient of Variation 13.2 % (11.5-14.5) Mean Platelet Volume 11.3 fL (7.4-10.4) Urine Color YELLOW Urine Appearance CLOUDY (CLEAR) Urine pH 5.0 (4.5-7.5) Urine Specific [place] 1.019 (1.000-1.030) Urine Protein NEG (NEG) Urine Glucose (UA) NEG (NEG) Urine Ketones NEG (NEG) Urine Occult Blood NEG (NEG) Urine Nitrite NEG (NEG) Urine Bilirubin NEG (NEG) Urine Urobilinogen NEG (NEG) Urine Leukocyte Esterase TRACE (NEG) Urine WBC (Auto) 1-5 /hpf (0-5) Urine RBC (Auto) 0-4 /hpf (0-4) Urine Hyaline Casts (Auto) 1-5 /lpf (0-5) Urine Epithelial Cells (Auto) 20-30 /lpf (0-5) Urine Bacteria (Auto) NEG (NEG) Urine Crystals CALCIUM OXALATE (NONE Anion Gap 5.0 mmol/L (3-11) Est Creatinine Clear Calc Drug Dose 65.1 ml/min Estimated GFR () 71.7 Estimated GFR (Non- 61.8 BUN/Creatinine Ratio 15.3 (10-20) Calcium Level 9.3 mg/dl (8.5-10.1) Total Bilirubin 0.6 mg/dl (0.2-1) Direct Bilirubin 0.2 mg/dl (0-0.2) Aspartate Amino Transf (AST/SGOT) 25 U/L (15-37) Alanine Aminotransferase (ALT/SGPT) 31 U/L (12-78) Alkaline Phosphatase 151 U/L (45-117) Total Protein 6.6 gm/dl (6.4-8.2) Albumin 3.7 gm/dl (3.4-5.0) Laboratory results reviewed by me Medications Administered Medications (Trade) Dose Ordered Sig/Damina Route Start Time Stop Time Status Last Admin Dose Admin Sodium Chloride 500 ml @ 999 mls/hr Q31M ONCE IV 01/10/18 13:45 01/10/18 14:15 DC 01/10/18 14:21 999 MLS/HR Ketorolac Tromethamine (Toradol Inj) 15 mg NOW STAT IV 01/10/18 13:50 01/10/18 13:54 DC 01/10/18 14:21 15 MG Ondansetron HCl (Zofran Inj) 4 mg NOW STAT IV 01/10/18 13:50 01/10/18 13:54 DC 01/10/18 14:21 4 MG ED Course 1348: The patient was evaluated in room B9. A complete history and physical exam was performed. 1610: I reevaluated the patient. Discussed results and discharge instructions: She verbalized understanding and agreement. The patient is ready for discharge. Medical Decision I reviewed the patient's past medical history, medications, and the nursing notes as described above. Differential diagnosis: Etiologies such as renal colic, appendicitis, diverticulitis, mesenteric ischemia, aortic pathology, infections, inflammatory bowel disease, PUD, biliary pathology, UTI, as well as others were entertained. The patient is a 62-year-old woman who presents emergency department with right- sided flank pain per hpi. On arrival the patient is in no acute distress, afebrile stable vital signs. She has mild right CVA tenderness. CBC within normal limits. UA negative for infection. Labs otherwise unremarkable. CT scan negative for any acute obstructing stone however does demonstrates circumferential bladder wall thickening and mild urothelial thickening and right periureteral fat stranding that could be consistent with infection versus recently passed stone. Given that the patient's UA does not show infection symptoms likely related to passed stone, given that the patient's symptoms have resolved upon reevaluation after IV fluid hydration and Toradol. Reports that she feels back to normal. Patient also hypertensive likely related to her initial discomfort will follow up with her PCP regarding this. Findings and plan for follow-up reviewed with patient. Patient agreeable and d/c'd per discharge instructions. Medication Reconcilliation Current Medication List: was personally reviewed by me Blood Pressure Screening Patient's blood pressure: Elevated blood pressure Blood pressure disposition: Elevated BP felt to be situational Impression Primary Impression: Right flank pain Scribe Attestation The scribe's documentation has been prepared under my direction and personally reviewed by me in its entirety. I confirm that the note above accurately reflects all work, treatment, procedures, and medical decision making performed by me. Departure Information Dispostion Home / Self-Care Referrals Cecilia Gorman M.D. (PCP) Forms HOME CARE DOCUMENTATION FORM, IMPORTANT VISIT INFORMATION Patient Instructions ED Flank Pain Uncertain Cause, Kidney Stones, My [facility] Additional Instructions Please follow up with your primary care physician in the next 1-3 days for re- evaluation. Your symptoms are possibly due to a passed kidney stone. Otherwise, your exam, lab results, and CT scan did not show signs of an emergent condition at this time. Acetaminophen or ibuprofen for pain and fevers as needed. Drink plenty of fluids to ensure hydration. Return to the emergency department for worsening symptoms as described in the accompanying instructions.
[2018-01-10] MEDS ORDERED: INSDGIPEN SC (14:31)
[2018-01-10 14:37] LABS: HEMATOCRIT 41.4 % (37-47); HEMOGLOBIN 13.8 g/dL (12.0-16.0); MEAN CELL VOLUME 90.2 fL (80-100); MEAN CORPUSCULAR HEMOGLOBIN 30.1 pg (25-34); MEAN CORPUSCULAR HGB CONC 33.3 g/dl (32-36); MEAN PLATELET VOLUME 11.3 fL (7.4-10.4); PLATELET COUNT 169 K/uL (130-400); RED CELL DISTRIBUTION WIDTH CV 13.2 % (11.5-14.5); WHITE BLOOD COUNT 6.24 K/uL (4.8-10.8)
[2018-01-10 15:02] LABS: ALBUMIN 3.7 gm/dl (3.4-5.0); CALCIUM 9.3 mg/dl (8.5-10.1); CREATININE 0.98 mg/dl (0.60-1.20); POTASSIUM 3.5 mmol/L (3.5-5.1)
[2018-01-10 15:04] LABS: TOTAL PROTEIN 6.6 gm/dl (6.4-8.2)
--- NOTE | 2018-01-10 15:53 | DIAGNOSTIC IMAGING REPORT ---
ABD/PELVIS IV CONTRAST ONLY CLINICAL HISTORY: 62 years-old Female presenting with right flank pain. TECHNIQUE: Multidetector CT of the abdomen and pelvis was performed after the administration of intravenous contrast. IV contrast: 93 mL of Optiray 320. A dose lowering technique was used consistent with the principles of ALARA (as low as reasonably achievable). COMPARISON: None. CT DOSE (mGy.cm): The estimated cumulative dose is 984.90 mGy.cm. 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 Lung bases: Minimal basilar opacities, likely atelectasis. Normal heart size. No pericardial or pleural effusion. Liver: Normal morphology. No liver lesion. Patent hepatic vasculature. Biliary: Mild intrahepatic biliary ductal prominence centrally. No extrahepatic bladder ductal dilatation. Gallbladder contains gallstones. Pancreas: The pancreatic tail is either atrophic or surgically absent. Spleen: Normal. Adrenal glands: Normal. Kidneys and ureters: Well-defined hypodensity in the left kidney likely stable cyst. Punctate nonobstructing calculus in the left kidney. No hydronephrosis. Mild urothelial thickening and periureteral fat stranding suggested along the courses of the ureters greater on the right. Bladder: Circumferential bladder wall thickening. Pelvic organs: Uterus surgically absent. Bowel: Moderate stool burden in the rectosigmoid colon. No bowel obstruction. Peritoneal cavity: No free fluid or intraperitoneal gas. Lymph nodes: Few enlarged lymph nodes in the mark hepatis and portacaval region, an index node measuring 8 mm in the short axis (series 3 image 113). No additional sites in the abdomen or pelvis of enlarged lymph nodes. Vasculature: Atherosclerosis of the normal caliber abdominal aorta. IVC patent. Abdominal wall: Postsurgical changes of the infraumbilical abdominal wall. A surgical mesh may be in place. Nonspecific body wall edema. Musculoskeletal: Degenerative changes of the spine. IMPRESSION: 1. Circumferential bladder wall thickening and mild urothelial thickening and periureteral fat stranding. Subtle findings could suggest cystitis with upper tract involvement or, less likely, recently passed calculus. 2. Nonobstructive left renal calculus. 3. Cholelithiasis. Mild central intrahepatic biliary ductal dilatation suggested. No CT evidence of extrahepatic ductal dilatation or choledocholithiasis. 4. Suspicious lymph node enlargement in the mark hepatis and portacaval regions. These may be reactive. Attention on follow-up. Electronically signed by: James Ballard M.D. 01/10/2018 3:52 PM Dictated Date/Time: 01/10/2018 3:31 PM
[2018-01-10 16:29] VITALS: BP 192/81; PULSE 70; O2SAT 98
== END 2018-01-10 16:29 | disposition home or self-care (01) ==
LOC: C.EDB 12:29
DX: R10.9 Unspecified abdominal pain (principal); R03.0 Elevated blood-pressure reading, without diagnosis of hypertension; R11.0 Nausea; E11.9 Type 2 diabetes mellitus without complications; K21.9 Gastro-esophageal reflux disease without esophagitis; Z87.442 Personal history of urinary calculi; Z79.4 Long term (current) use of insulin; Z79.84 Long term (current) use of oral hypoglycemic drugs; Z79.899 Other long term (current) drug therapy

== ENCOUNTER 2020-12-18 14:10 | Inpatient (IN) ==
--- NOTE | 2020-12-18 14:47 | Emergency Department Note ---
Impression & Plan Precordial chest pain, Hypertension, SOB (shortness of breath), Back pain ED Provider Note NAME: BRITTNI THAKUR AGE: 65 SEX: F : 1955 ARRIVES VIA: Ambulance INFORMANT: [Patient] ED PROVIDER(S): [Octavio Alcantara MD] CHIEF COMPLAINT: Chest pain HISTORY OF PRESENT ILLNESS: Patient is a 65-year-old female who presents to the ED with back and chest and shoulder pain. The pain began when she was sitting on her recliner. The pain basically paralyzed her and was a 10/10. She was short of breath, nauseated and clammy. Patient states that EMS was summoned. On the way here, she was given 4 baby aspirin. She currently has minimal to no pain. The patient states that she has no history of coronary disease. She admits that she was pushing a couch in chair around earlier today, she had no trouble though with this activity. There has been no cough or congestion. She has been in baseline health. She does not have any back issues diagnosed previously. REVIEW OF SYSTEMS: See HPI for pertinent positives and negatives. A total of ten systems were reviewed and were otherwise negative. PMHx/PSHx: See Below SOCIAL HISTORY: See Below. PHYSICAL EXAM: GENERAL: Patient is in no acute distress. HEENT: No acute trauma, normocephalic atraumatic, mucous membranes moist, no nasal congestion, no scleral icterus. NECK: No stridor, no adenopathy, no meningismus, trachea is midline. LUNGS: Clear to auscultation bilaterally, no wheeze, no rhonchi, breath sounds equal. HEART: Without murmurs gallops or rubs, regular rate and rhythm. ABDOMEN: Soft, nontender, bowel sounds positive, no hernias, no peritonitis. EXTREMITIES: No cyanosis or edema, full range of motion of all the joints without pain or difficulty, no signs for acute trauma. NEUROLOGIC: Oriented x 3, no acute motor or sensory deficits, no focal weakness. SKIN: No rash, no jaundice, no diaphoresis. Back: Nontender thoracic or lumbar back. No increased pain with sitting up or lying flat. DIFFERENTIAL DIAGNOSIS: Cardiac ischemia, aortic dissection, pulmonary embolism, pneumothorax, pneumonia, pericarditis, myocarditis, esophageal rupture, GERD, cholecystitis, pancreatitis, musculoskeletal, as well as other pathologies. EMERGENCY DEPARTMENT COURSE/PROCEDURES: ECG: Indication was chest pain. ECG shows a normal sinus rhythm with a rate of 78. The QTc is 449. There is evidence for a potential old anterior lateral infarct as well as a potential old inferior infarct. Compared to an ECG from 12 September 2020, the old infarcts appear new. Continuous Cardiac Monitoring: An order was placed for continuous cardiac monitoring. The monitor shows a rate of 75 with normal sinus rhythm. MEDICAL DECISION MAKING: There is no leukocytosis or worrisome anemia. There is a normal platelet count. No significant electrolyte abnormality or kidney failure. No concerning liver enzyme elevation. ECG shows a sinus rhythm, no acute ischemia. Cardiac enzyme testing x1 is not consistent with acute cardiac injury. There is no evidence for pancreatitis by our testing. Urinalysis does not show infection. Covid and influenza testing returned negative. Chest film did not show pneumonia, mediastinal widening or CHF. Chest and abdominal CT scans do not show any evidence for aortic dissection or aneurysm. The patient was given nitroglycerin paste. This was given for cardio protective purposes. She had already received oral aspirin. She was given oral Tylenol for a headache that developed because of the nitroglycerin. The patient presents hypertensive. She had chest pain and back pain. She was clammy and short of breath. She does have some cardiac risk factors. I do think further cardiac work-up is warranted in the hospital setting. I spoke to the patient and rehabilitation caseworker. The on-call hospitalist was consulted. Past Med/Surg History Medical History COVID-19 virus infection ASYMTOMATIC 01/2020-NO RESIDUAL EFFECTS Diabetes mellitus Hyperlipidemia Obesity Surgical History History of colonoscopy History of esophagogastroduodenoscopy (EGD) History of hysterectomy AND APPENDECTOMY History of knee surgery LEFT History of liver biopsy (10/28/20) Laparoscopic Cholecystectomy with Intraoperative Cholangiogram, [place] Liver Biopsy of Right Lobe Dr. Ring 10/28/2020 Hx laparoscopic cholecystectomy (10/28/20) Laparoscopic Cholecystectomy with Intraoperative Cholangiogram, [place] Liver Biopsy of Right Lobe Dr. Ring 10/28/2020 Hx of cataract surgery R/L S/P appendectomy Family History Father Brain tumor Grandmother (Maternal) Diabetes Mother Hypertension Daughter Family history of diabetes mellitus Denies family history of Ovarian cancer Prostate cancer Myocardial infarction Breast cancer Colorectal cancer Social History Smoking Status: Never smoker Second Hand Exposure: No; Hx Alcohol Use: No Hx Substance Use: No Preferred Language: Croatian Communication Ability: Effective Visual Impairment: No Limitations Hearing Ability: Normal Metal Stamper Required: No Beliefs That Will Affect Care: None marital status: / Current Living Situation: Family current occupational status: employed Other Information That Helps Us Care for You: No Feels Safe at Home: Yes Safety Concerns: Feels Safe At This Time Physical Activity Frequency: 3-4 Times per Week Seatbelt Use: always Assistive Devices: Glasses Allergies Allergies Allergy/AdvReac Type Severity Reaction Status Date / Time sitagliptin [From ] Allergy Unknown HEADACHE Verified 12/18/20 14:59 VOMITING Home Meds Home Medications Medication Instructions Recorded Confirmed ezetimibe [Zetia] 10 mg PO QAM 09/22/20 12/18/20 aspirin [Aspir-81] 324 mg PO DAILY PRN 12/18/20 12/18/20 Previous Rx's Medication Instructions Recorded metformin 1,000 mg tablet 1,000 mg PO BID #180 tab 11/25/19 carbidopa 25 mg-levodopa 100 mg 1 tab PO HS PRN #90 tab 09/14/20 tablet aspirin 81 mg tablet,delayed 81 mg PO DAILY #30 tab 10/18/20 release insulin NPH-regular 70-30 U-100 17 unit SQ BID #15 ml 11/19/20 insulin 100 unit/mL subcutaneous pen Results & Data (ED) Vital Signs Vital Signs - 24 hr 12/18/20 14:19 12/18/20 15:21 12/18/20 16:19 Temperature 36.5 C Temperature Source Oral Pulse Rate 75 Pulse Rate [Apical] 75 73 Pulse Rhythm [Apical] Regular Pulse Strength [Apical] Normal Respiratory Rate 22 18 Respiratory Effort / Characteristics Non-Labored Spontaneous Non-Labored Spontaneous Respiratory Depth Normal Normal Respiratory Pattern Regular Regular Blood Pressure 191/105 H Blood Pressure [Right Arm] 191/105 H 207/92 H Blood Pressure Mean 133 Blood Pressure Mean [Right Arm] 133 130 Blood Pressure Position [Right Arm] Lying Pulse Oximetry 97 98 98 Oxygen Delivery Method Room Air Room Air Room Air Sepsis Recent Fever Within 48 Hours No Sepsis New/Unexplained Change in Mental Status No Sepsis Action Taken by Nursing No Action Required 12/18/20 18:12 12/18/20 18:40 Temperature Temperature Source Pulse Rate Pulse Rate [Apical] 77 78 Pulse Rhythm [Apical] Regular Regular Pulse Strength [Apical] Normal Normal Respiratory Rate 20 20 Respiratory Effort / Characteristics Non-Labored Spontaneous Non-Labored Spontaneous Respiratory Depth Normal Normal Respiratory Pattern Blood Pressure Blood Pressure [Right Arm] 207/102 H 178/120 H Blood Pressure Mean Blood Pressure Mean [Right Arm] 137 139 Blood Pressure Position [Right Arm] Lying Lying Pulse Oximetry 96 98 Oxygen Delivery Method Room Air Room Air Sepsis Recent Fever Within 48 Hours Sepsis New/Unexplained Change in Mental Status Sepsis Action Taken by Assisted Medications Current Medication List: was personally reviewed by me Laboratory Data Attestation: I reviewed the patient's lab results. Result diagrams: 12/18/20 15:20 12/18/20 15:20 Lab Results 12/18/20 12/18/20 12/18/20 Range/Units 15:20 15:20 15:21 WBC 8.15 (4.8-10.8) K/uL RBC 4.52 (4.2-5.4) M/uL Hgb 13.8 (12.0-16.0) g/dL Hct 40.2 (37-47) % MCV 88.9 (80-100) fL MCH 30.5 (25-34) pg MCHC 34.3 (32-36) g/dL RDW Std Deviation 43.1 (36.4-46.3) fL RDW Coeff of Artemio 13.2 (11.5-14.5) % Plt Count 135 (130-400) K/uL MPV 12.0 H (7.4-10.4) fL Immature Gran % (Auto) 1.8 % Neut % (Auto) 77.1 % Lymph % (Auto) 14.8 % [place] % (Auto) 5.5 % Eos % (Auto) 0.7 % Baso % (Auto) 0.1 % Neut # (Auto) 6.27 (1.4-6.5) K/uL Lymph # (Auto) 1.21 (1.2-3.4) K/uL [place] # (Auto) 0.45 (0.11-0.59) K/uL Eos # (Auto) 0.06 (0-0.5) K/uL Baso # (Auto) 0.01 (0-0.2) K/uL Immature Gran # (Auto) 0.15 H (0.00-0.02) K/uL Sodium 142 (136-145) mmol/L Potassium 3.8 (3.5-5.1) mmol/L Chloride 114 H (98-107) mmol/L Carbon Dioxide 22 (21-32) mmol/L Anion Gap 6.0 (3-11) BUN 17 (7-18) mg/dl Creatinine 0.99 (0.6-1.2) mg/dl Est Cr Clr Drug Dosing 59.9 ml/min Est GFR ( Amer) 69.3 Est GFR (Non-Af Amer) 59.8 BUN/Creatinine Ratio 17.3 (10-20) Glucose 227 H (70-99) mg/dl Calcium 9.0 (8.5-10.1) mg/dl Magnesium 2.2 (1.8-2.4) mg/dl Total Bilirubin 0.6 (0.2-1) mg/dl AST 20 (15-37) U/L ALT 31 (12-78) U/L Alkaline Phosphatase 115 (45-117) U/L Troponin I < 0.015 (0-0.045) ng/ml Total Protein 6.9 (6.4-8.2) gm/dl Albumin 3.3 L (3.4-5.0) gm/dl Globulin 3.6 (2.5-4.0) gm/dl Albumin/Globulin Ratio 0.9 (0.9-2) Lipase 223 (73-393) U/L TSH 1.420 (0.300-4.500) uIu/ml Random Cortisol 7.76 mcg/dl Administered Medications Discontinued Medications Acetaminophen (Acetaminophen 500 Mg Tab) 1,000 mg PO NOW STA Stop: 12/18/20 18:10 Last Admin: 12/18/20 18:26 Dose: 1,000 mg Documented by: [id number] Clonidine HCl (Clonidine Hcl 0.1 Mg Tab) 0.1 mg PO NOW ONE Stop: 12/18/20 19:16 Last Admin: 12/18/20 19:39 Dose: 0.1 mg Documented by: [id number] Ioversol (Optiray 320 125ml) 119 ml IV ONCE ONE Stop: 12/18/20 17:03 Last Admin: 12/18/20 17:02 Dose: 119 ml Documented by: [id number] Labetalol HCl (Labetalol Hcl Iv 5 Mg/Ml 20ml) Confirm Administered Dose 5 mg IV .STK-MED ONE Stop: 12/18/20 18:16 Last Admin: 12/18/20 18:26 Dose: 5 mg Documented by: [id number] Cosigned by: [id number] Nitroglycerin (Nitroglycerin 2% Ointment 30gm Tube) 1 inch EXT NOW STA Stop: 12/18/20 16:21 Last Admin: 12/18/20 17:44 Dose: 1 inch Documented by: [id number] Imaging Data Radiologist's Impression: XR chest 1V portable HISTORY: Atypical Chest Pain COMPARISON: 09/20/2020. FINDINGS: The lungs are clear. Cardiac silhouette is normal in size. No pleural effusions. No pneumothorax. IMPRESSION: No acute process. CHEST CTA for AORTIC DISSECTION, ABDOMEN AND PELVIS CTA CT DOSE: 2604.67 mGy.cm HISTORY: Atypical chest pain. Back pain. Pain extending into hips. Assess for an aortic dissection. TECHNIQUE: Multiaxial CT images of the chest, abdomen, and pelvis were performed both before and after the intravenous administration of contrast to evaluate the aorta. Maximal intensity projection images were also obtained. A dose lowering technique was utilized adhering to the principles of ALARA. COMPARISON STUDY: Abdomen and pelvis CT 10/25/2018. FINDINGS: Chest CTA: Noncontrast imaging through the chest shows no evidence for an intramural hematoma within the thoracic aorta. The thoracic aorta is normal and course and caliber with no evidence for dissection. The heart is normal in size. No pleural or pericardial effusions. The central pulmonary arteries are patent. Normal esophagus. No mediastinal or hilar lymphadenopathy. Extensive calcified plaque within the left coronary artery. No fractures within the visualized osseous structures of the chest. No pneumothorax. The central airways are patent. There is a 1.2 cm nodule at the base the right lower lobe on image 177. This may represent an exophytic lesion from the right hepatic dome. This could represent an exophytic cyst. There is a 3 mm groundglass nodule within the left lower lobe on image 211. No focal lung consolidations to suggest pneumonia. Abdomen/pelvis CTA: Moderate calcified plaque within the normal caliber abdomin al aorta. No evidence for aortic dissection. The iliac arteries are widely patent. No significant stenosis within the celiac, renal, or mesenteric arteries. Of note, there are 2 left renal arteries. No pneumoperitoneum. No pneumatosis. No fractures within the visualized osseous structures. Interval cholecystectomy. Minimal infiltration within the resection bed. This likely represents expected postoperative changes. The spleen, adrenal glands, and pancreas are unremarkable. Normal right kidney. There is a 1 cm nonobstructing stone within the left kidney. There is a 1.3 cm cyst within the upper pole the left kidney. No retroperitoneal lymphadenopathy. Mild bladder distention. No bladder wall thickening. Mild thickening of the distal rectum best seen on image 388. Large amount of well-formed stool seen throughout the sigmoid colon which measures up to 7.2 cm in diameter. No evidence for bowel obstruction. IMPRESSION: 1. No evidence for an aortic dissection. 2. A 1.2 cm nodule at the base of the right lower lobe. This appears to represent an exophytic cystic lesion from the adjacent hepatic dome or a small fluid collection given the recent postoperative change. One month chest CT fol low up recommended to ensure resolution. 3. Interval cholecystectomy. Minimal inflammatory change at the resection bed is likely expected given the recent postoperative change. 4. Left-sided nephrolithiasis. No ureteral stones. No hydronephrosis. 5. Large amount of well-formed stool within the sigmoid colon. 6. Mild thickening of the distal rectum. This could represent a mild proctitis or due to under distention. 7. Mildly distended bladder. Discharge Plan Visit Data Chief Complaint: Chest Pain ED Provider: Octavio Alcantara Discharge Problem: Precordial chest pain, Hypertension, SOB (shortness of breath), Back pain Patient Disposition: Admitted As Inpatient Condition: Fair Discharge Instructions Interventions: ED Discharge Assessment Last Done: 12/18/20 21:13 Discharge Problem: Hypertension Qualifiers: Hypertension type: unspecified Qualified Code(s): I10 - Essential (primary) hypertension Back pain Qualifiers: Back pain location: thoracic back pain Chronicity: acute Back pain laterality: midline Qualified Code(s): M54.6 - Pain in thoracic spine
--- NOTE | 2020-12-18 15:23 | XRay Report ---
XR chest 1V portable HISTORY: Atypical Chest Pain COMPARISON: 09/20/2020. FINDINGS: The lungs are clear. Cardiac silhouette is normal in size. No pleural effusions. No pneumot horax. IMPRESSION: No acute process. ACT 112: Negative or not required by law. Electronically signed by: Juan Barnhart M.D. 12/18/2020 3:22 PM
[2020-12-18 15:32] LABS: Basophils # (auto) 0.01 K/uL (0-0.2); Basophils % (auto) 0.1 %; Eosinophils # (auto) 0.06 K/uL (0-0.5); Eosinophils % (auto) 0.7 %; Hematocrit (blood only) 40.2 % (37-47); Hemoglobin 13.8 g/dL (12.0-16.0); Immature Granulocytes # (auto) 0.15 K/uL (0.00-0.02); Immature Granulocytes % (auto) 1.8 %; Lymphocytes # (auto) 1.21 K/uL (1.2-3.4); Lymphocytes % (auto) 14.8 %; Mean Corpuscular Hemoglobin 30.5 pg (25-34); Mean Corpuscular Hgb Conc 34.3 g/dL (32-36); Mean Corpuscular Volume 88.9 fL (80-100); Monocytes # (auto) 0.45 K/uL (0.11-0.59); Monocytes % (auto) 5.5 %; Neutrophils # (auto) 6.27 K/uL (1.4-6.5); Neutrophils % (auto) 77.1 %; Platelet Count 135 K/uL (130-400); RDW Coefficient of Variation 13.2 % (11.5-14.5); RDW Standard Deviation 43.1 fL (36.4-46.3); Red Blood Count 4.52 M/uL (4.2-5.4); White Blood Count 8.15 K/uL (4.8-10.8)
[2020-12-18 15:49] LABS: Alanine Aminotransferase 31 U/L (12-78); Albumin Level 3.3 gm/dl (3.4-5.0); Aspartate Aminotransferase 20 U/L (15-37); BUN Creatinine Ratio 17.3 (10-20); Blood Urea Nitrogen 17 mg/dl (7-18); Carbon Dioxide 22 mmol/L (21-32); Chloride 114 mmol/L (98-107); Creatinine Clr Calc Pharmacy 59.9 ml/min; Est GFR (African American) 69.3; Est GFR (Non-African American) 59.8; Glucose 227 mg/dl (70-99); Lipase 223 U/L (73-393); Magnesium 2.2 mg/dl (1.8-2.4); Potassium 3.8 mmol/L (3.5-5.1); Sodium 142 mmol/L (136-145)
[2020-12-18 15:54] LABS: Albumin Globulin Ratio 0.9 (0.9-2); Alkaline Phosphatase 115 U/L (45-117); Bilirubin,Total 0.6 mg/dl (0.2-1); Globulin 3.6 gm/dl (2.5-4.0); Total Protein 6.9 gm/dl (6.4-8.2); Troponin I < 0.015 ng/ml (0-0.045)
[2020-12-18] MEDS ORDERED: NITROGLYCERIN 2% OINTMENT 30GM TUBE EXT STA (16:20)
[2020-12-18] MEDS ORDERED: OPTIRAY 320 125ml IV ONE (17:02)
--- NOTE | 2020-12-18 17:36 | CT Scan Report ---
CHEST CTA for AORTIC DISSECTION, ABDOMEN AND PELVIS CTA CT DOSE: 2604.67 mGy.cm HISTORY: Atypical chest pain. Back pain. Pain extending into hips. Assess for an aortic dissection. TECHNIQUE: Multiaxial CT images of the chest, abdomen, and pelvis were performed both before and afte r the intravenous administration of contrast to evaluate the aorta. Maximal intensity projection imag es were also obtained. A dose lowering technique was utilized adhering to the principles of ALARA. COMPARISON STUDY: Abdomen and pelvis CT 10/25/2018. FINDINGS: Chest CTA: Noncontrast imaging through the chest shows no evidence for an intramural hematoma within the thoracic aorta. The thoracic aorta is normal and course and caliber with no evidence for dissecti on. The heart is normal in size. No pleural or pericardial effusions. The central pulmonary arteries are patent. Normal esophagus. No mediastinal or hilar lymphadenopathy. Extensive calcified plaque wit hin the left coronary artery. No fractures within the visualized osseous structures of the chest. No pneumothorax. The central airways are patent. There is a 1.2 cm nodule at the base the right lower lo be on image 177. This may represent an exophytic lesion from the right hepatic dome. This could repre sent an exophytic cyst. There is a 3 mm groundglass nodule within the left lower lobe on image 211. N o focal lung consolidations to suggest pneumonia. Abdomen/pelvis CTA: Moderate calcified plaque within the normal caliber abdominal aorta. No evidence for aortic dissection. The iliac arteries are widely patent. No significant stenosis within the conrda c, renal, or mesenteric arteries. Of note, there are 2 left renal arteries. No pneumoperitoneum. No p neumatosis. No fractures within the visualized osseous structures. Interval cholecystectomy. Minimal infiltration within the resection bed. This likely represents expected postoperative changes. The spl een, adrenal glands, and pancreas are unremarkable. Normal right kidney. There is a 1 cm nonobstructi ng stone within the left kidney. There is a 1.3 cm cyst within the upper pole the left kidney. No ret roperitoneal lymphadenopathy. Mild bladder distention. No bladder wall thickening. Mild thickening of the distal rectum best seen on image 388. Large amount of well-formed stool seen throughout the sigm oid colon which measures up to 7.2 cm in diameter. No evidence for bowel obstruction. IMPRESSION: 1. No evidence for an aortic dissection. 2. A 1.2 cm nodule at the base of the right lower lobe. This appears to represent an exophytic cystic lesion from the adjacent hepatic dome or a small fluid collection given the recent postoperative karla nge. One month chest CT follow up recommended to ensure resolution. 3. Interval cholecystectomy. Minimal inflammatory change at the resection bed is likely expected give n the recent postoperative change. 4. Left-sided nephrolithiasis. No ureteral stones. No hydronephrosis. 5. Large amount of well-formed stool within the sigmoid colon. 6. Mild thickening of the distal rectum. This could represent a mild proctitis or due to under disten tion. 7. Mildly distended bladder. ACT 112: Negative or not required by law. Electronically signed by: Juan Barnhart M.D. 12/18/2020 5:35 PM
[2020-12-18] MEDS ORDERED: LABETALOL HCL IV 5 MG/ML 20ML IV PRN (18:07)
[2020-12-18] MEDS ORDERED: ACETAMINOPHEN 500 MG TAB PO STA (18:09)
--- NOTE | 2020-12-18 18:09 | History & Physical Report ---
Date of Service December 18, 2020 Assessment & Plan (1) Hypertension: HTN urgency with no end organ damage. Chest pain is relieved with negative troponin and normal ECG, back pain is relieved with no evidence of Dissection or aneurysm. - Normal renal indices - Normal neurological exam and vision - Will introduce clonidine 0.1mg PO x1 now and Labetalol tonight for slow lowering of BP as immediate aggressive control is not warranted- Labetalol overnight if consistent. - CTA of the abdomen and pelvis does not show any stenosis of the renal arteries - Renal artery duplex - TSH and Random cortisol sent- pending - AM cortisol - ASA for primary prevention - ECHO in morning to evaluate for LVH Patient was previously on HTN therapy but was discontinued (2) Obesity: BMI 38- continue to control glucose, lipids, encourage weight loss and activity (3) Nephrolithiasis: Chronic - LT sided neprholithiasis without obstruction or hydronephrosis noted on CTA of abdomen (4) Type 2 diabetes mellitus with hyperlipidemia: On insulin- Continue outpatient management - If clinical course changes will change to subq insulin and discontinue metformin - HGB a1c in the morning (5) Vitamin D deficiency: No acute needs History of Present Illness Chief Complaint: chest pain Primary Care Provider: Fito Saucedo, DO 65 YOF with history of HTN (previously treated and stopped "years ago"), obesity, GERD, nephrolithiasis, DM II, cholelithiasis, Hepatic-steatosis. Patient comes to the emergency room after experiencing sharp pain between her shoulder-blades associated with shortness of breath and chest pain. She was sitting in her recliner watching TV and not involved in any activity at this time. The pain was located along her left side of her chest, the back pain was sharp in nature and did not feel like a "ripping or tearing" pain. Both her chest pain and back pain went away when she got to the emergency. Her shortness of breath was not associated with any sputum or blood. Troponin I is negative and ECG not changed. Patient is noted to be HTN with MAPS >130. In the emergency room the patient had a CTA of the abdomen and pelvis that did not show any dissection or PE. Patient will be admitted to PCU telemetry for HTN urgency and very controlled management of her blood pressure. Allergies Allergy/AdvReac Type Severity Reaction Status Date / Time sitagliptin [From Sepuvia] Allergy Unknown HEADACHE Verified 12/18/20 14:59 VOMITING Home Medications Medication Instructions Recorded Confirmed Type metformin 1,000 mg tablet 1,000 mg PO BID #180 tab 11/25/19 12/18/20 Rx carbidopa 25 mg-levodopa 100 mg 1 tab PO HS PRN #90 tab 09/14/20 12/18/20 Rx tablet ezetimibe [Zetia] 10 mg PO QAM 09/22/20 12/18/20 History aspirin 81 mg tablet,delayed 81 mg PO DAILY #30 tab 10/18/20 12/18/20 Rx release insulin NPH-regular 70-30 U-100 17 unit SQ BID #15 ml 11/19/20 12/18/20 Rx insulin 100 unit/mL subcutaneous pen aspirin [Aspir-81] 324 mg PO DAILY PRN 12/18/20 12/18/20 History Past Med/Surg History Medical History COVID-19 virus infection ASYMTOMATIC 01/2020-NO RESIDUAL EFFECTS Diabetes mellitus Hyperlipidemia Obesity Surgical History History of colonoscopy History of esophagogastroduodenoscopy (EGD) History of hysterectomy AND APPENDECTOMY History of knee surgery LEFT History of liver biopsy (10/28/20) Laparoscopic Cholecystectomy with Intraoperative Cholangiogram, [place] Liver Biopsy of Right Lobe Dr. Ring 10/28/2020 Hx laparoscopic cholecystectomy (10/28/20) Laparoscopic Cholecystectomy with Intraoperative Cholangiogram, [place]-[facility] Liver Biopsy of Right Lobe Dr. Ring 10/28/2020 Hx of cataract surgery R/L S/P appendectomy Family History Father Brain tumor Grandmother (Maternal) Diabetes Mother Hypertension Daughter Family history of diabetes mellitus Denies family history of Ovarian cancer Prostate cancer Myocardial infarction Breast cancer Colorectal cancer Social History Smoking Status: Never smoker Second Hand Exposure: No; Hx Alcohol Use: No Hx Substance Use: No Preferred Language: Nam[place]ian Communication Ability: Effective Visual Impairment: No Limitations Hearing Ability: Normal Nitroglycerin Separator Operator Required: No Beliefs That Will Affect Care: None marital status: / Current Living Situation: Alone current occupational status: employed Feels Safe at Home: Yes Physical Activity Frequency: 3-4 Times per Week Seatbelt Use: always Assistive Devices: Glasses Review of Systems Review of Systems: REVIEW OF SYSTEMS: Constitutional: No fever, sweats or chills Eyes: No diplopia, no worsening or blurred vision ENT: normal hearing, no trouble swallowing Respiratory: No cough, sputum, dyspnea at rest or on exertion Cardiovascular: No chest pain, tightness or palpitations Abdomen: No pain, nausea, vomiting, diarrhea or constipation Musculoskeletal: No joint pain, calf pain, swelling Neurologic: No weakness, numbness/tingling, or balance problems Psychiatric: No anxiety or depression Skin: No rash or itch Physical Exam Physical Exam: PHYSICAL EXAM: General: awake, alert, no apparent distress Head: Normocephalic, atraumatic ENT: PERRL, EOMI, no pharyngeal exudate, mucous membranes moist Neuro: AAO x 3, speech clear and appropriate, strength intact bilaterally 5/5, sensation intact and equal all extremities and dermatomes, no pronator drift Chest: equal rise and fall of the chest, no accessory muscle use, no heaves or thrills, Clear to auscultation, on room air, Cardiac: Regular rate and rhythm, telemetry reviewed, skin warm dry, cap refill <3 seconds, peripheral pulses +2 no JVD, no murmur, no edema GI: NABS x 4 quadrants, soft, nontender to palpation, no rebound, guarding or tenderness : Spontaneously voiding, no pain, no CVA tenderness, Extremities: Normal inspection, no peripheral edema or erythema, calfs nontender to palpation Psych: Normal mood and affect Skin: no rash or erythema Results & Data Results & Data ([facility]) Vital Signs (Past 12 Hours) Vital Signs Temp Pulse Pulse Resp BP BP Pulse Ox 12/18/20 16:19 73 18 207/92 H 98 12/18/20 15:21 98 12/18/20 14:19 36.5 C 75 75 22 191/105 H 191/105 H 97 Laboratory Results Abnormal lab results 12/18/20 12/18/20 Range/Units 15:20 15:20 MPV 12.0 H (7.4-10.4) fL Immature Gran # (Auto) 0.15 H (0.00-0.02) K/uL Chloride 114 H (98-107) mmol/L Glucose 227 H (70-99) mg/dl Albumin 3.3 L (3.4-5.0) gm/dl Diagnostic Findings CHEST CTA for AORTIC DISSECTION, ABDOMEN AND PELVIS CTA CT DOSE: 2604.67 mGy.cm HISTORY: Atypical chest pain. Back pain. Pain extending into hips. Assess for an aortic dissection. TECHNIQUE: Multiaxial CT images of the chest, abdomen, and pelvis were performed both before and after the intravenous administration of contrast to evaluate the aorta. Maximal intensity projection images were also obtained. A dose lowering technique was utilized adhering to the principles of ALARA. COMPARISON STUDY: Abdomen and pelvis CT 10/25/2018. FINDINGS: Chest CTA: Noncontrast imaging through the chest shows no evidence for an intramural hematoma within the thoracic aorta. The thoracic aorta is normal and course and caliber with no evidence for dissection. The heart is normal in size. No pleural or pericardial effusions. The central pulmonary arteries are patent. Normal esophagus. No mediastinal or hilar lymphadenopathy. Extensive calcified plaque within the left coronary artery. No fractures within the visualized osseous structures of the chest. No pneumothorax. The central airways are patent. There is a 1.2 cm nodule at the base the right lower lobe on image 177. This may represent an exophytic lesion from the right hepatic dome. This could represent an exophytic cyst. There is a 3 mm groundglass nodule within the left lower lobe on image 211. No focal lung consolidations to suggest pneumonia. Abdomen/pelvis CTA: Moderate calcified plaque within the normal caliber abdominal aorta. No evidence for aortic dissection. The iliac arteries are widely patent. No significant stenosis within the celiac, renal, or mesenteric arteries. Of note, there are 2 left renal arteries. No pneumoperitoneum. No pneumatosis. No fractures within the visualized osseous structures. Interval cholecystectomy. Minimal infiltration within the resection bed. This likely represents expected postoperative changes. The spleen, adrenal glands, and pancreas are unremarkable. Normal right kidney. There is a 1 cm nonobstructing stone within the left kidney. There is a 1.3 cm cyst within the upper pole the left kidney. No retroperitoneal lymphadenopathy. Mild bladder distention. No bladder wall thickening. Mild thickening of the distal rectum best seen on image 388. Large amount of well-formed stool seen throughout the sigmoid colon which measures up to 7.2 cm in diameter. No evidence for bowel obstruction. IMPRESSION: 1. No evidence for an aortic dissection. 2. A 1.2 cm nodule at the base of the right lower lobe. This appears to represent an exophytic cystic lesion from the adjacent hepatic dome or a small fluid collection given the recent postoperative change. One month chest CT follow up recommended to ensure resolution. 3. Interval cholecystectomy. Minimal inflammatory change at the resection bed is likely expected given the recent postoperative change. 4. Left-sided nephrolithiasis. No ureteral stones. No hydronephrosis. 5. Large amount of well-formed stool within the sigmoid colon. 6. Mild thickening of the distal rectum. This could represent a mild proctitis or due to under distention. 7. Mildly distended bladder. Medications Administered Discontinued Medications Acetaminophen (Acetaminophen 500 Mg Tab) 1,000 mg PO NOW STA Stop: 12/18/20 18:10 Last Admin: 12/18/20 18:26 Dose: 1,000 mg Documented by: [id number] Ioversol (Optiray 320 125ml) 119 ml IV ONCE ONE Stop: 12/18/20 17:03 Last Admin: 12/18/20 17:02 Dose: 119 ml Documented by: [id number] Labetalol HCl (Labetalol Hcl Iv 5 Mg/Ml 20ml) Confirm Administered Dose 5 mg IV .STK-MED ONE Stop: 12/18/20 18:16 Last Admin: 12/18/20 18:26 Dose: 5 mg Documented by: [id number] Cosigned by: [id number] Nitroglycerin (Nitroglycerin 2% Ointment 30gm Tube) 1 inch EXT NOW STA Stop: 12/18/20 16:21 Last Admin: 12/18/20 17:44 Dose: 1 inch Documented by: [id number] Home Medications metformin 1,000 mg tablet 1,000 mg PO BID #180 tab 11/25/19 [Rx Confirmed 12/18/20] carbidopa 25 mg-levodopa 100 mg tablet 1 tab PO HS PRN #90 tab 09/14/20 [Rx Confirmed 12/18/20] ezetimibe [Zetia] 10 mg PO QAM 09/22/20 [History Confirmed 12/18/20] aspirin 81 mg tablet,delayed release 81 mg PO DAILY #30 tab 10/18/20 [Rx Confirmed 12/18/20] insulin NPH-regular 70-30 U-100 insulin 100 unit/mL subcutaneous pen 17 unit SQ BID #15 ml 11/19/20 [Rx Confirmed 12/18/20] aspirin [Aspir-81] 324 mg PO DAILY PRN 12/18/20 [History Confirmed 12/18/20] Active Medications Labetalol HCl (Labetalol Hcl Iv 5 Mg/Ml 20ml) 10 mg IV Q2H PRN PRN Reason: elevated MAP/SBP Stop: 01/17/21 18:06 ECG Additional Comments: Normal sinus rhythm Anterolateral infarct , age undetermined Abnormal ECG When compared with ECG of 20-SEP-2020 08:40, No significant change was found Code Status & VTE Plan Code Status CODE: FULL VTE: SCD's/Lovenox VTE Prophylaxis Plan VTE Prophylaxis will be ordered: Yes Supervising Physician Co-Signing Physician Notes Patient was seen and examined independently I discussed the case with Jimmy RODRÍGUEZ I reviewed pertinent past medical social family history and also the plan of care and agree with the plan of care. Pt has no focal chest pain and only developed a headache after nitro, BP is improved but not yet in normal range. Pt is awake and alert x3, no neurologic deficits, no heart murmurs, no carotid or renal bruits. will gently control blood pressure, check echo and check am troponin Any exceptions will be noted below PG Care Time/CCT Total # of Minutes Spent Total Time Spent with Patient: Total time spent is greater than 50% in coordination of care (as documented) at patient's floor/unit and/or counseling patient: Coding Level of Care Code 90167 Initial Inpt Care Lvl 3 Diagnoses Hypertension I10 Hypertension type: unspecified Obesity E66.09; Z68.38 Body mass index: BMI 38.0-38.9 Obesity classification: adult class 2 (BMI 35 - 39.9) Obesity type: due to excess calories Serious obesity comorbidity presence: without serious comorbidity Nephrolithiasis N20.0 Type 2 diabetes mellitus with hyperlipidemia E11.69; E78.5 Vitamin D deficiency E55.9 (1) Hypertension Hypertension type: unspecified Qualified Code(s): I10 - Essential (primary) hypertension (2) Obesity Body mass index: BMI 38.0-38.9 Obesity classification: adult class 2 (BMI 35 - 39.9) Obesity type: due to excess calories Serious obesity comorbidity presence: without serious comorbidity Qualified Code(s): E66.09 - Other obesity due to excess calories; Z68.38 - Body mass index [BMI] 38.0-38.9, adult
[2020-12-18] MEDS ORDERED: LABETALOL HCL IV 5 MG/ML 20ML IV ONE (18:15)
[2020-12-18] MEDS ORDERED: cloNIDine HCL 0.1 MG TAB PO ONE (19:15)
[2020-12-18 20:38] LABS: Influenza A virus by PCR Negative (Neg); Influenza B virus by PCR Negative (Neg); RSV by PCR Negative (Neg); SARS CoV2 RNA(COVID-19) InHosp NEGATIVE (Negative)
[2020-12-18] MEDS ORDERED: CARBIDOPA/LEVODOPA 25/100MG TAB PO PRN (21:28)
[2020-12-18] MEDS ORDERED: ACETAMINOPHEN 325 MG TAB PO PRN (21:28)
[2020-12-18] MEDS ORDERED: ONDANSETRON INJ 2 MG/ML 2 ML VIAL IV PRN (21:28)
[2020-12-18] MEDS ORDERED: GLUCAGON FOR INJ 1 MG VIAL IM PRN (21:45)
[2020-12-18] MEDS ORDERED: GLUCOSE 10 TABS/TUBE PO PRN (21:45)
[2020-12-18] MEDS ORDERED: CARBOHYDRATES FOR HYPOGLYCEMIA PO PRN (21:45)
[2020-12-18] MEDS ORDERED: DEXTROSE 50% 50 ML SYRINGE IV PRN (21:45)
[2020-12-18] MEDS ORDERED: GLUCOSE 40% GEL 15 GM TUBE PO PRN (21:45)
[2020-12-18 22:05] LABS: Appearance Urine Clear (Clear); Bilirubin Urine Negative (Negative); Blood Urine Negative (Negative); Color Urine Yellow; Glucose Urine UA Trace (Negative); Ketones Urine Negative (Negative); Leukocyte Esterase Urine Negative (Negative); Nitrite Urine Negative (Negative); Protein Urine Negative (Negative); Specific Gravity Urine 1.042 (1.000-1.030); Urobilinogen Urine Negative (Negative)
[2020-12-19 08:05] LABS: Basophils # (auto) 0.01 K/uL (0-0.2); Basophils % (auto) 0.1 %; Eosinophils # (auto) 0.03 K/uL (0-0.5); Eosinophils % (auto) 0.3 %; Hematocrit (blood only) 40.3 % (37-47); Hemoglobin 13.9 g/dL (12.0-16.0); Immature Granulocytes # (auto) 0.03 K/uL (0.00-0.02); Immature Granulocytes % (auto) 0.3 %; Lymphocytes # (auto) 1.09 K/uL (1.2-3.4); Lymphocytes % (auto) 11.1 %; Mean Corpuscular Hemoglobin 30.8 pg (25-34); Mean Corpuscular Hgb Conc 34.5 g/dL (32-36); Mean Corpuscular Volume 89.4 fL (80-100); Mean Platelet Volume 11.9 fL (7.4-10.4); Monocytes # (auto) 0.48 K/uL (0.11-0.59); Monocytes % (auto) 4.9 %; Neutrophils # (auto) 8.21 K/uL (1.4-6.5); Neutrophils % (auto) 83.3 %; Platelet Count 152 K/uL (130-400); RDW Coefficient of Variation 13.4 % (11.5-14.5); RDW Standard Deviation 43.8 fL (36.4-46.3); Red Blood Count 4.51 M/uL (4.2-5.4); White Blood Count 9.85 K/uL (4.8-10.8)
[2020-12-19] MEDS: INSULIN HUMAN 70% NPH/30% REGULAR SC SCH ×2 (08:23→16:57)
[2020-12-19 08:34] LABS: BUN Creatinine Ratio 15.6 (10-20); Blood Urea Nitrogen 17 mg/dl (7-18); Calcium 9.1 mg/dl (8.5-10.1); Carbon Dioxide 24 mmol/L (21-32); Chloride 109 mmol/L (98-107); Cholesterol 181 mg/dl (0-200); Creatinine Clr Calc Pharmacy 55.2 ml/min; Est GFR (African American) 63.8; Est GFR (Non-African American) 55.1; Glucose 233 mg/dl (70-99); Magnesium 2.2 mg/dl (1.8-2.4); Sodium 140 mmol/L (136-145); Triglycerides 160 mg/dl (0-150); VLDL Cholesterol 32 mg/dl
[2020-12-19 08:39] LABS: Chol HDL Ratio 4; HDL Cholesterol 43 mg/dl; LDL Cholesterol Calculated 106 mg/dl; Troponin I < 0.015 ng/ml (0-0.045)
[2020-12-19] MEDS ORDERED: EZETIMIBE 10 MG TABLET PO SCH (09:00)
[2020-12-19] MEDS ORDERED: ASPIRIN 81 MG ECTAB PO SCH (09:00)
[2020-12-19] MEDS ORDERED: ENOXAPARIN INJ 40 MG/0.4 ML SYR SQ SCH (09:00)
--- NOTE | 2020-12-19 09:24 | Ultrasound Report ---
US duplex renal artery CLINICAL HISTORY: Uncontrolled hypertension. COMPARISON STUDY: Abdomen and pelvis CTA 12/18/2020. FINDINGS: The bilateral renal veins are patent. Peak systolic velocity within the right renal artery was 96 cm/s proximally and the left renal artery was 103 cm/s proximally. No hydronephrosis. IMPRESSION: No evidence for renal artery stenosis. ACT 112: Negative or not required by law. Electronically signed by: Juan Barnhart M.D. 12/19/2020 9:23 AM
--- NOTE | 2020-12-19 14:24 | XCELERA ---
[id number]
--- NOTE | 2020-12-19 15:03 | Electrocardiogram Report ---
Test Reason : Blood Pressure : / mmHG Vent. Rate : 076 BPM Atrial Rate : 076 BPM P-R Int : 182 ms QRS Dur : 080 ms QT Int : 402 ms P-R-T Axes : 052 -07 044 degrees QTc Int : 452 ms Normal sinus rhythm Inferior infarct , age undetermined Poor R-wave progression: anterior MO vs. lead placement vs. LVH Abnormal ECG When compared with ECG of 18-DEC-2020 14:19, (unconfirmed) No significant change was found Confirmed by Blaze Stratton ([id number]) on 12/19/2020 3:03:19 PM Referred By: REFERRED SELF Confirmed By:Blaze Stratton
--- NOTE | 2020-12-19 15:09 | Electrocardiogram Report ---
Test Reason : Blood Pressure : / mmHG Vent. Rate : 078 BPM Atrial Rate : 078 BPM P-R Int : 188 ms QRS Dur : 078 ms QT Int : 394 ms P-R-T Axes : 053 -11 038 degrees QTc Int : 449 ms Poor data quality, interpretation may be adversely affected Normal sinus rhythm Anterolateral infarct , age undetermined Abnormal ECG When compared with ECG of 20-SEP-2020 08:40, No significant change was found Confirmed by Blaze Stratton ([id number]) on 12/19/2020 3:09:20 PM Referred By: Confirmed By:Blaze Stratton
[2020-12-20 05:57] LABS: Estimated Average Glucose 200 mg/dl; Hemoglobin A1C 8.6 % (4.5-5.6)
[2020-12-20] MEDS ORDERED: metFORMIN HCL 500 MG TAB PO SCH (08:00)
--- NOTE | 2020-12-27 00:14 | Discharge Summary ---
Date of Service December 19, 2020 Admission HPI Per Admitting Provider 65 YOF with history of HTN (previously treated and stopped "years ago"), obesity, GERD, nephrolithiasis, DM II, cholelithiasis, Hepatic-steatosis. Patient comes to the emergency room after experiencing sharp pain between her shoulder-blades associated with shortness of breath and chest pain. She was sitting in her recliner watching TV and not involved in any activity at this time. The pain was located along her left side of her chest, the back pain was sharp in nature and did not feel like a "ripping or tearing" pain. Both her chest pain and back pain went away when she got to the emergency. Her shortness of breath was not associated with any sputum or blood. Troponin I is negative and ECG not changed. Patient is noted to be HTN with MAPS >130. In the emergency room the patient had a CTA of the abdomen and pelvis that did not show any dissection or PE. Patient will be admitted to PCU telemetry for HTN urgency and very controlled management of her blood pressure. Principal Diagnosis Hypertension Discharge Exam General: awake, alert, no apparent distress Head: Normocephalic, atraumatic ENT: PERRL, EOMI, no pharyngeal exudate, mucous membranes moist Neuro: AAO x 3, speech clear and appropriate, strength intact bilaterally 5/5, sensation intact and equal all extremities and dermatomes, no pronator drift Chest: equal rise and fall of the chest, no accessory muscle use, no heaves or thrills, Clear to auscultation, on room air, Cardiac: Regular rate and rhythm, telemetry reviewed, skin warm dry, cap refill <3 seconds, peripheral pulses +2 no JVD, no murmur, no edema GI: NABS x 4 quadrants, soft, nontender to palpation, no rebound, guarding or tenderness : Spontaneously voiding, no pain, no CVA tenderness, Extremities: Normal inspection, no peripheral edema or erythema, calfs nontender to palpation Psych: Normal mood and affect Skin: no rash or erythema Discharge Data Allergies Allergy/AdvReac Type Severity Reaction Status Date / Time sitagliptin [From ] Allergy Unknown HEADACHE Verified 12/23/20 10:08 VOMITING Consultations 12/18/20 18:06 ED Decision to Admit Stat Ordered Studies 12/18/20 16:20 CT angio abdomen pelvis w con Stat CT angio chest dissec wo/w con Stat 12/18/20 19:04 US duplex renal artery Routine Hospital Course (1) Hypertension: HTN urgency with no end organ damage. Chest pain is relieved with negative troponin and normal ECG, back pain is relieved with no evidence of Dissection or aneurysm. - Normal renal indices - Normal neurological exam and vision - Will introduce clonidine 0.1mg PO x1 now and Labetalol tonight for slow lowering of BP as immediate aggressive control is not warranted- Labetalol overnight if consistent. - CTA of the abdomen and pelvis does not show any stenosis of the renal arteries - Renal artery duplex - TSH and Random cortisol sent- pending - AM cortisol - ASA for primary prevention - ECHO in morning to evaluate for LVH Patient was previously on HTN therapy but was discontinued. On discharge, BP was better controlled. Discussed in detail medications. will initiate 2 low dose BP meds. lisinopril and amlodipine. (2) Obesity: BMI 38- continue to control glucose, lipids, encourage weight loss and activity (3) Nephrolithiasis: Chronic - LT sided neprholithiasis without obstruction or hydronephrosis noted on CTA of abdomen (4) Type 2 diabetes mellitus with hyperlipidemia: On insulin- Continue outpatient management - If clinical course changes will change to subq insulin and discontinue metformin - HGB a1c in the morning (5) Vitamin D deficiency: No acute needs Total Time Total Time Spent Total Time Spent (In Minutes): 32 Discharge Plan Discharge Items Patient Disposition: Home - Self-Care Reason For Visit: CHEST PAIN, HTN Discharge Diagnosis: HYPERTENSION Condition on Discharge: Fair Activity: Resume your previous activity Non-emergency contact: Primary Care Provider Call non-emergency contact if: you have any medication questions Follow-up/Referrals: Fito Saucedo DO [Primary Care Provider] - 12/23/20 10:30 am Diet: Carb Consistent or DM2 Addtl Attending Provider Instructions: You have been hospitalized for an acute medical problem. During your stay at [facility], we have made an effort to correct the problem that brought you to the hospital while keeping you as comfortable as possible. Medications were used to bring your condition under control and your discharge instructions will include directions for any medications you should take after leaving the hospital. Please make sure you see your Primary Care Provider as part of your follow up plan. Will start 2 low dose blood pressure medications. We discussed that this will help control your blood pressure. Some side effects could be low blood pressure and dizziness. If this occurs, please call your primary care doctor. If you develop a dry cough, this could be secondary to lisinopril. Please let you primary care doctor, so the medication could be changed. Recommend followup with PCP in 1-2 weeks. Pending Studies at Discharge: No Stand-Alone Forms: My [facility] [employer], Smoking Cessation Medications and DC Order Prescriptions: New amlodipine 2.5 mg tablet 2.5 mg PO QPM Qty: 30 RF: 0 Continued aspirin [Adult Aspirin Regimen] 81 mg tablet,delayed release (DR/EC) 81 mg PO DAILY Qty: 30 RF: 2 Novolin 70-30 FlexPen U-100 100 unit/mL (70-30) insulin pen 17 unit SQ BID Qty: 15 RF: 11 carbidopa-levodopa 25-100 mg tablet 1 tab PO HS PRN (Reason: Restless leg) Qty: 90 RF: 3 ezetimibe [Zetia] 10 mg tablet 10 mg PO QAM RF: 0 Discontinued aspirin [Aspir-81] 81 mg Tablet,Delayed Release (Dr/Ec) 324 mg PO DAILY PRN (Reason: Chest Pain) RF: 0 No Action lisinopril 10 mg tablet 10 mg PO DAILY Qty: 30 RF: 5 metformin 1,000 mg tablet 1,000 mg PO BID Qty: 180 RF: 3 Jardiance 10 mg tablet 10 mg PO DAILY Qty: 30 RF: 5 Discharge Orders: Discharge Order (Routine); Ordered 12/19/20 Ordered By: Mark Clements Admission Data Admit Date/Time: 12/18/20 18:56 Attending Provider: Mark Clements Admit Provider: Leonel Moseley Primary Care Provider: Fito Saucedo Other Interventions: Discharge Summary Assessment (RN) Last Done: 12/19/20 16:35 Coding Level of Care Code D/C Day Management >30 mins Diagnoses Hypertension I10 Hypertension type: unspecified Obesity E66.09; Z68.38 Obesity type: due to excess calories Obesity classification: adult class 2 (BMI 35 - 39.9) Serious obesity comorbidity presence: without serious comorbidity Body mass index: BMI 38.0-38.9 Nephrolithiasis N20.0 Type 2 diabetes mellitus with hyperlipidemia E11.69; E78.5 Vitamin D deficiency E55.9 Time Spent (min) 32
== END 2020-12-19 17:37 | disposition home or self-care (01) | DRG 305 ==
LOC: ED 14:10 → SUATTDRO 18:56 → 2S 18:56

== ENCOUNTER 2023-12-18 08:08 | Inpatient (IN) ==
--- NOTE | 2023-12-18 08:52 | XRay Report ---
XR chest 1V portable CLINICAL HISTORY: Dyspnea COMPARISON STUDY: Chest radiograph and chest CT October 10, 2023. FINDINGS: Lung volumes are normal. Lungs are clear. There is no pneumothorax or pleural effusion. Car diac size is stable. Mediastinal contours are normal. There is no evidence for pulmonary edema. IMPRESSION: No acute cardiopulmonary findings. ACT 112: Negative or not required by law. Electronically signed by: Godfrey Dobson M.D. 12/18/2023 8:51 AM
--- NOTE | 2023-12-18 09:02 | Emergency Department Note ---
Impression & Plan Anemia requiring transfusions, Dizziness, Non-ST elevation MN (NSTEMI), Acute dyspnea ED Provider Note HISTORY OF PRESENT ILLNESS: Patient is a 68-year-old female presenting with shortness of breath and gait instability. Patient reports she has been short of breath both at rest and with exertion for the last 3 to 4 days. Her symptoms have been getting progressively worse. She is on a baby aspirin daily. Denies any history of stents in her heart. Reports that she developed a dry nonproductive cough this morning. Denies any fevers. Denies any recent sick contact exposures. She denies any chest pain. Reports that she also has been struggling with dizziness and gait instability for the last 48 hours. Reports when she stands up she gets dizzy as if the room is spinning and she has to hold onto things. She is normally ambulatory without any assistive devices at home. She states that "my head feels heavy." Denies any focal numbness, tingling or weakness in her extremities. ROS: as above PHYSICAL EXAM: Constitutional: Patient appears in no acute distress. HENT: Head: Normocephalic and atraumatic. Eyes: EOMI, PERRL Mouth/Throat: Mucous membranes moist. Neck: Trachea midline. Neck supple. Cardiovascular: RRR, No murmurs, rubs or gallops. Intact distal pulses. Pulmonary/Chest: No respiratory distress. Breath sounds clear and equal bilaterally. No wheezes or rales. Abdominal: Abdomen soft, no tenderness, rebound or guarding. Musculoskeletal: No tenderness or deformity noted. +1 edema of bilateral lower extremities extending to knees. Rectal: Chaperoned by nursing staff. No palpable masses or hemorrhoids. No gross melena on glove. Hemoccult negative. Skin: Warm and dry. No rash, erythema, pallor or cyanosis Psychiatric: Appropriate mood and affect for situation. Neurological: Alert and keenly responsive. Facies symmetric. Able to raise eyebrows, close eyes, smile, puff mouth, stick out tongue, move tongue left and right and raise palate symmetrically. Able to shrug shoulders. PERRLA. SILT to forehead below eye and at jawline. Can hear soft noise bilaterally. Strength 5/5 in bilateral upper and lower extremities. SILT throughout bilateral upper and lower extremities. MDM: - Vitals signs stable. - History obtained via patient. History as above. - Chronic conditions affecting care: HTN; DM-2; GERD; obesity - Differential diagnoses include, but are not limited to: CVA; intracranial hemorrhage; anemia; electrolyte abnormality; ACS; dehydration; viral syndrome - Order placed for continuous cardiac monitoring. At this time, monitor showed rate of 90 bpm with normal sinus rhythm, per my interpretation. - External medical records reviewed. Primary care visit note dated 11/20/2023 was reviewed. Patient follows in their clinic for her diabetes, hypertension and other chronic medical conditions - EKG interpreted by myself showed normal sinus rhythm. Rate 86 bpm. QT 398. No acute ischemic changes. - Laboratory workup interpreted by myself showed normal WBC; significant anemia (Hgb 5.1 - down from 14.6 two months ago); stable electrolytes; elevated BUN; normal creatinine; normal BNP; elevated troponin (44.1) - CXR negative for pneumonia, per my interpretation - CT head wo contrast negative for acute intracranial pathology - Rectal exam was negative for any gross melena or blood and Hemoccult negative. Patient's NSTEMI is likely type II in the setting of her profound anemia. She was consented for blood. 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 I have personally spent 36 minutes of critical care time in the direct management of this patient. This includes bedside care, interpretation of diagnostic studies, and testing, discussion with consultants, patient, and family members, and other required patient management activities. This 36 minutes is in excess of all separately billable procedures. ASSESSMENT AND PLAN: Diagnosis: Anemia requiring transfusions; dizziness; acute dyspnea; NSTEMI Plan: admit Past Med/Surg History Medical History (Updated 12/18/23 @ 10:07 by Katelyn Villanueva MD) Cirrhosis Fecal impaction Liver spot BIOSPY DONE DURING LAP LAURA/BENIGN Restless leg syndrome COVID-19 virus infection ASYMTOMATIC 01/2020-NO RESIDUAL EFFECTS Surgical History Nausea and vomiting after administration of anesthetic agent + SLOW TO WAKE UP History of tooth extraction History of liver biopsy (10/28/20) Hx laparoscopic cholecystectomy (10/28/20) History of esophagogastroduodenoscopy (EGD) History of colonoscopy Hx of cataract surgery RT/LEFT S/P appendectomy History of knee surgery LEFT History of hysterectomy Family History Father Brain tumor Grandmother (Maternal) Diabetes Mother Hypertension Daughter Family history of diabetes mellitus Other No family history of adverse response to anesthesia Denies family history of Ovarian cancer Prostate cancer Myocardial infarction Breast cancer Colorectal cancer Social History Smoking Status: Never smoker Second Hand Exposure: No; Do You Dip or Chew Tobacco: No; Hx Alcohol Use: No Hx Substance Use: No Preferred Language: Bur[place]ian Communication Ability: Effective Visual Impairment: Limited Hearing Ability: Normal Air Defence Officer Required: No Beliefs That Will Affect Care: None marital status: / Current Living Situation: Family current occupational status: employed current occupation: [employer] How many Children do You have: 2 Feels Safe at Home: Yes Childhood Exposure to Second-Hand Smoke: No Diet: regular caffeine: Yes during the past year weight has: remained stable Dental Care, Regularly: No Physical Activity Frequency: 3-4 Times per Week Seatbelt Use: always Sunscreen Use: No Assistive Devices: Glasses Allergies Allergies Allergy/AdvReac Type Severity Reaction Status Date / Time sitagliptin [From Januvia] Allergy Mild HEADACHE Verified 11/20/23 08:00 VOMITING Home Meds Home Medications Medication Instructions Recorded Confirmed albuterol sulfate 90 mcg/actuation 2 puff inhalation Q6H PRN 10/10/23 11/20/23 aerosol inhaler Shortness Of Breath Or Wheezing benzonatate 100 mg capsule 100 mg PO TID PRN Cough 10/10/23 11/20/23 Previous Rx's Medication Instructions Recorded aspirin 81 mg tablet,delayed 81 mg PO DAILY #30 tabs 10/18/20 release (Adult Aspirin Regimen) diclofenac sodium 1 % topical gel 4 g topical QID PRN 01/24/21 musculoskeletal pain #100 grams ezetimibe 10 mg tablet (Zetia) 10 mg PO DAILY #90 tabs 05/19/22 gabapentin 100 mg capsule 100 mg PO TID PRN neuropathy #90 09/11/22 caps amlodipine 5 mg tablet 5 mg PO DAILY #90 tabs 10/05/22 tolnaftate 1 % topical solution 1 drp topical BID PRN 05/18/23 (Antifungal (tolnaftate)) onychomycosis #45 mL metformin 1,000 mg tablet 1,000 mg PO BID #180 tabs 10/09/23 pravastatin 40 mg tablet 40 mg PO DAILY #90 tabs 10/09/23 blood-glucose meter,continuous #1 ea 11/20/23 (Dexcom G7 Donor Services Team Leader) blood-glucose sensor (Dexcom G7 #1 ea 11/20/23 Sensor device) insulin degludec 100 unit/mL (3 45 unit (0.45 mL) subcut QPM 90 11/20/23 mL) subcutaneous pen (Tresiba days #40.5 mL FlexTouch U-100 insulin) carbidopa 25 mg-levodopa 100 mg 1 tab PO HS PRN Restless leg #90 12/12/23 tablet tabs Results & Data (ED) Vital Signs Vital Signs - 24 hr 12/18/23 08:17 12/18/23 08:38 12/18/23 08:38 Temperature 36.7 C Temperature Source Temporal Artery Scan Pulse Rate 91 H Pulse Rate [Apical] Respiratory Rate 19 Respiratory Effort / Characteristics Non-Labored Spontaneous Spontaneous Respiratory Depth Normal Blood Pressure 109/65 Blood Pressure [Right Arm] Blood Pressure Mean 79 Blood Pressure Mean [Right Arm] Blood Pressure Position Sitting Blood Pressure Position [Right Arm] Pulse Oximetry 100 100 Oxygen Delivery Method Room Air Room Air Sepsis Recent Fever Within 48 Hours No Sepsis New/Unexplained Change in Mental Status No Sepsis Action Taken by Nursing No Action Required 12/18/23 08:38 12/18/23 08:41 12/18/23 08:42 Temperature Temperature Source Pulse Rate 87 89 Pulse Rate [Apical] 98 H Respiratory Rate 20 20 Respiratory Effort / Characteristics Spontaneous Respiratory Depth Blood Pressure Blood Pressure [Right Arm] 123/58 L Blood Pressure Mean Blood Pressure Mean [Right Arm] 79 Blood Pressure Position Blood Pressure Position [Right Arm] Semi-fowlers Pulse Oximetry 100 100 Oxygen Delivery Method Room Air Room Air Sepsis Recent Fever Within 48 Hours Sepsis New/Unexplained Change in Mental Status Sepsis Action Taken by Nursing 12/18/23 10:09 Temperature Temperature Source Pulse Rate Pulse Rate [Apical] 84 Respiratory Rate 18 Respiratory Effort / Characteristics Non-Labored Spontaneous Respiratory Depth Normal Blood Pressure Blood Pressure [Right Arm] 108/75 Blood Pressure Mean Blood Pressure Mean [Right Arm] 86 Blood Pressure Position Blood Pressure Position [Right Arm] Semi-fowlers Pulse Oximetry 100 Oxygen Delivery Method Room Air Sepsis Recent Fever Within 48 Hours Sepsis New/Unexplained Change in Mental Status Sepsis Action Taken by Nursing Laboratory Data 12/18/23 08:33 12/18/23 08:33 Lab Results 12/18/23 12/18/23 12/18/23 Range/Units 08:33 09:07 09:31 WBC 6.99 (4.8-10.8) K/ul RBC 1.94 L (4.20-5.40) M/uL Hgb 5.1 L* (12.0-16.0) g/dl Hct 17.5 L* (37.0-47.0) % MCV 90.2 (80.0-100.0) fL MCH 26.3 (25.0-34.0) pg MCHC 29.1 L (32.0-36.0) g/dL RDW Std Deviation 49.9 H (36.4-46.3) fL RDW Coeff of Artemio 15.8 H (11.5-14.5) % Plt Count 126 L (130-400) K/uL MPV 12.5 H (9.4-12.4) fL Immature Gran % (Auto) 0.4 % Neut % (Auto) 70.4 % Lymph % (Auto) 22.3 % [place] % (Auto) 6.0 % Eos % (Auto) 0.6 % Baso % (Auto) 0.3 % Neut # (Auto) 4.92 (1.40-6.50) K/uL Lymph # (Auto) 1.56 (1.20-3.40) K/uL [place] # (Auto) 0.42 (0.11-0.59) K/uL Eos # (Auto) 0.04 (0.00-0.50) K/uL Baso # (Auto) 0.02 (0.00-0.20) K/uL Immature Gran # (Auto) 0.03 (0.01-0.20) K/uL Polychromasia 1+ Hypochromasia Present PT 13.0 H (9.0-12.0) Seconds INR 1.2 H (0.9-1.1) VBG pH 7.45 H (7.36-7.41) VBG pCO2 28 L (38-50) mmHg VBG pO2 20 mmHg VBG HCO3 20 mmol/L VBG O2 Saturation < 60.0 % VBG Base Excess -3.2 mEq/L Sodium 144 (136-145) mmol/L Potassium 3.7 (3.5-5.1) mmol/L Chloride 116 H (98-107) mmol/L Carbon Dioxide 19 L (21-32) mmol/L Anion Gap 9 (3-11) BUN 32 H (6-23) mg/dl Creatinine 1.06 (0.6-1.2) mg/dl Est Cr Clr Drug Dosing Not Reportable Est GFR ( Amer) 62.5 ml/min Est GFR (Non-Af Amer) 53.9 ml/min BUN/Creatinine Ratio 30.2 H (10-20) Glucose 157 H (70-99(Fasting)) mg/dl Calcium 8.7 (8.6-10.3) mg/dl Magnesium 2.1 (1.7-2.4) mg/dl Total Bilirubin 0.5 (0.2-1.0) mg/dl AST 18 (13-39) U/L ALT 13 (7-52) U/L Alkaline Phosphatase 79 (34-104) U/L Troponin I High Sens 44.1 H (0-14) pg/ml B-Natriuretic Peptide 69 (0-100) pg/ml Total Protein 5.9 L (6.0-8.3) gm/dl Albumin 3.4 (3.4-5.0) gm/dl Globulin 2.5 (2.5-4.0) gm/dl Albumin/Globulin Ratio 1.4 (0.9-2) Crossmatch See Detail Imaging Data Radiologist's Impression: Chest X-Ray 12/18/23 08:28 XR chest 1V portable CLINICAL HISTORY: Dyspnea COMPARISON STUDY: Chest radiograph and chest CT October 10, 2023. FINDINGS: Lung volumes are normal. Lungs are clear. There is no pneumothorax or pleural effusion. Cardiac size is stable. Mediastinal contours are normal. There is no evidence for pulmonary edema. IMPRESSION: No acute cardiopulmonary findings. ACT 112: Negative or not required by law. Electronically signed by: Godfrey Dobson M.D. 12/18/2023 8:[address] 12/18/23 08:28 CT OF THE HEAD WITHOUT CONTRAST CLINICAL HISTORY: Ambulatory dysfunction. COMPARISON STUDY: Head CT October 03, 2022. CT DOSE: 625.8 mGy.cm TECHNIQUE: Helical axial images of the head were obtained without IV contrast. Automated exposure control was utilized for the study. A dose lowering technique was utilized adhering to the principles of ALARA. FINDINGS: No acute intracranial hemorrhage, midline shift or mass effect is present. The ventricular system is stable. White matter hypodensities are unchanged and favor small vessel disease. The basal cisterns are patent. No extra-axial collections are present. There are no findings to suggest acute dural sinus thrombosis or acute territorial infarct. No significant calvarial abnormalities are present. Visualized portions of the sinuses and mastoid air cells are clear. IMPRESSION: No acute intracranial findings. ACT 112: Negative or not required by law. Electronically signed by: Godfrey Dobson M.D. 12/18/2023 9:14 AM Discharge Plan Visit Data Chief Complaint: Shortness of Breath/Dyspnea Stated Complaint: SOB, LETHARGIC, DIZZY ED Provider: Katelyn Villanueva Discharge Problem: Anemia requiring transfusions, Dizziness, Non-ST elevation MN (NSTEMI), Acute dyspnea Forms Stand Alone Forms: My [facility] Prescriptions Prescriptions: No Action ezetimibe [Zetia] 10 mg tablet 10 mg PO DAILY Qty: 90 3RF pravastatin 40 mg tablet 40 mg PO DAILY Qty: 90 3RF metformin 1,000 mg tablet 1,000 mg PO BID Qty: 180 3RF carbidopa-levodopa 25-100 mg tablet 1 tab PO HS PRN (Reason: Restless leg) Qty: 90 3RF aspirin [Adult Aspirin Regimen] 81 mg tablet,delayed release (DR/EC) 81 mg PO DAILY Qty: 30 2RF Patient Comments: QAM tolnaftate [Antifungal (tolnaftate)] 1 % solution 1 drp topical BID PRN (Reason: onychomycosis) Qty: 45 3RF Rx Instructions: rub into affected area gabapentin 100 mg capsule 100 mg PO TID PRN (Reason: neuropathy) Qty: 90 5RF insulin degludec [Tresiba FlexTouch U-100] 100 unit/mL (3 mL) insulin pen 45 unit subcut QPM 90 Days Qty: 40.5 3RF (DME) Dexcom G7 Sensor Device See Rx Instructions .Route Qty: 1 3RF Rx Instructions: As directed DX:E11.9 (DME) Dexcom G7 Donor Services Team Leader Misc See Rx Instructions .Route Qty: 1 0RF Rx Instructions: As directed DX:E11.9 diclofenac sodium 1 % gel 4 g topical QID PRN (Reason: musculoskeletal pain) Qty: 100 5RF amlodipine 5 mg tablet 5 mg PO DAILY Qty: 90 3RF Rx Instructions: pt aware dose change benzonatate 100 mg Capsule 100 mg PO TID PRN (Reason: Cough) albuterol sulfate 90 mcg/actuation Hfa Aerosol Inhaler 2 puff INHALATION Q6H PRN (Reason: Shortness Of Breath Or Wheezing) Referrals Referrals: Fito Saucedo DO [Primary Care Provider] -
[2023-12-18 09:14] LABS: Mean Corpuscular Hemoglobin 26.3 pg (25.0-34.0); Mean Corpuscular Hgb Conc 29.1 g/dL (32.0-36.0); Mean Corpuscular Volume 90.2 fL (80.0-100.0); Mean Platelet Volume 12.5 fL (9.4-12.4); Platelet Count 126 K/uL (130-400); RDW Coefficient of Variation 15.8 % (11.5-14.5); RDW Standard Deviation 49.9 fL (36.4-46.3); Red Blood Count 1.94 M/uL (4.20-5.40); White Blood Count 6.99 K/ul (4.8-10.8)
--- NOTE | 2023-12-18 09:16 | CT Scan Report ---
CT OF THE HEAD WITHOUT CONTRAST CLINICAL HISTORY: Ambulatory dysfunction. COMPARISON STUDY: Head CT October 03, 2022. CT DOSE: 625.8 mGy.cm TECHNIQUE: Helical axial images of the head were obtained without IV contrast. Automated exposure con trol was utilized for the study. A dose lowering technique was utilized adhering to the principles o f ALARA. FINDINGS: No acute intracranial hemorrhage, midline shift or mass effect is present. The ventricular system is stable. White matter hypodensities are unchanged and favor small vessel disease. The basal cisterns are patent. No extra-axial collections are present. There are no findings to suggest acute d ural sinus thrombosis or acute territorial infarct. No significant calvarial abnormalities are presen t. Visualized portions of the sinuses and mastoid air cells are clear. IMPRESSION: No acute intracranial findings. ACT 112: Negative or not required by law. Electronically signed by: Godfrye Dobson M.D. 12/18/2023 9:14 AM
[2023-12-18 09:17] LABS: INR 1.2 (0.9-1.1)
[2023-12-18 09:30] LABS: Basophils # (auto) 0.02 K/uL (0.00-0.20); Basophils % (auto) 0.3 %; Eosinophils # (auto) 0.04 K/uL (0.00-0.50); Eosinophils % (auto) 0.6 %; Hypochromasia Present; Immature Granulocytes # (auto) 0.03 K/uL (0.01-0.20); Immature Granulocytes % (auto) 0.4 %; Lymphocytes # (auto) 1.56 K/uL (1.20-3.40); Lymphocytes % (auto) 22.3 %; Monocytes # (auto) 0.42 K/uL (0.11-0.59); Neutrophils # (auto) 4.92 K/uL (1.40-6.50); Neutrophils % (auto) 70.4 %; Polychromasia 1+
[2023-12-18 09:31] LABS: Base Excess VBG -3.2 mEq/L; HCO3 VBG 20 mmol/L; Oxygen Saturation VBG < 60.0 %; PCO2 VBG 28 mmHg (38-50); PO2 VBG 20 mmHg; pH VBG 7.45 (7.36-7.41)
[2023-12-18 09:31] LABS: Albumin Level 3.4 gm/dl (3.4-5.0); Anion Gap 9 (3-11); Bilirubin,Total 0.5 mg/dl (0.2-1.0); Calcium 8.7 mg/dl (8.6-10.3); Carbon Dioxide 19 mmol/L (21-32); Chloride 116 mmol/L (98-107); Magnesium 2.1 mg/dl (1.7-2.4); Potassium 3.7 mmol/L (3.5-5.1); Sodium 144 mmol/L (136-145)
[2023-12-18 09:37] LABS: Alanine Aminotransferase 13 U/L (7-52); Albumin Globulin Ratio 1.4 (0.9-2); Alkaline Phosphatase 79 U/L (34-104); Aspartate Aminotransferase 18 U/L (13-39); BUN Creatinine Ratio 30.2 (10-20); Blood Urea Nitrogen 32 mg/dl (6-23); Est GFR (African American) 62.5 ml/min; Est GFR (Non-African American) 53.9 ml/min; Globulin 2.5 gm/dl (2.5-4.0); Glucose 157 mg/dl (70-99(Fasting)); Total Protein 5.9 gm/dl (6.0-8.3); Troponin I High Sensitivity 44.1 pg/ml (0-14)
[2023-12-18] MEDS ORDERED: SODIUM CHLORIDE 0.9% 250 ML IV PRN ×3 (09:45→21:17)
--- NOTE | 2023-12-18 10:20 | History & Physical Report ---
Date of Service December 18, 2023 Assessment & Plan (1) Upper GI bleed: Plan: Worsening dizziness with standing, fatigue, and SOB/dyspnea x 2 days Hgb 5.1 on arrival; Last Hgb was 14.6 from 2 months ago BUN/Cr ratio elevated at 30.2 Hemoccult (-) in the ED CT abdomen/pelvic with contrast ordered, pending Anemia labs, peripheral blood smear, PTT ordered, pending Upper GI bleed suspected due to epigastric pain, and lack of alternative etiology Keep n.p.o. for now Protonix drip IV Blood informed consent obtained; 4u pRBCs ordered in the ED Trend H&H q4h; H&H to be drawn 1 hour after completion of transfusion Hold aspirin; avoid NSAIDs Gastroenterology consulted; last colonoscopy >5y ago A.m. CBC, BMP, PT/INR (2) SOB (shortness of breath): Plan: Both at rest and with exertion; likely secondary to #1 BioFire negative Supplemental oxygen as needed to maintain SpO2 >94% (3) Type 2 diabetes mellitus with hyperlipidemia: Plan: Last A1c at 7.5% on 11/20/2023; no need to repeat Glucose 157 on admission Hold metformin Patient is normally on tresiba 45u HS Recommend decreasing to Lantus 10 u BID while inpatient SSI; with target BSG range 110-140mg/dL, CF 50, carb ratio 17] Keep n.p.o. for now, then advance to T2DM diet as tolerated BSG q6h while NPO, then BSG ACHS Adjust regimen as needed (4) Elevated troponin: Plan: Troponin 44.1-->40.6 on arrival EKG NSR at 86 bpm; QTc 476 Clinically, patient denies CP, pleuritic CP Continuous telemetry monitoring (5) Hypertension: Plan: Notable hypotension 1 month ago at PCP visit on 11/20/2023; lisinopril and HCTZ were held May indicate that #1 is more sub-acute Hold HCTZ until Hgb returns to normal range (6) Cirrhosis: Plan: Cirrhotic morphology, per CT A/P Blood cultures ordered, pending Rocephin 1000 mg IV q24h Octreotide 50mcg IV bolus given in the ED (7) Acute blood loss anemia: Plan Disposition: Admit to PCU telemetry Full code Keep n.p.o. for now, advance to clear liquids/T2DM diet as tolerated VTE PPx: SCDs (hold chemical DVT PPx in setting of potential acute upper GI bleed) History of Present Illness Chief Complaint: SOB/dyspnea, dizziness, fatigue Primary Care Provider: Fito Saucedo DO Karly is a 68-year-old male with PMH of HTN, T2DM, GERD, arthritis, nephrolithiasis, and diabetic retinopathy. She presented for ambulatory dysfunction, fatigue, SOB, and dizziness when standing x 2 days. Dizziness/lightheadedness both at rest and with exertion. SOB is both at rest and with exertion. No prior experiences like this one, however, she does note that she was feeling short of breath when she had bronchitis a couple months ago. Patient did not take her regular morning medications today; no recent change in medications. She does endorse taking aspirin daily, but no other blood thinners; no recent NSAID use. No PMH of gastric ulcers or bleeding conditions. No family history of colon cancer; her grandson does have Crohn's. Patient endorses unintentional weight loss from 205-->188lb over the past 2 months. No change in diet. Patient is unsure when her last colonoscopy was, but reports it was greater than 5 years ago. Patient also notes she has had intermittent pain between her shoulder blades, but this has been ongoing for an extended period of time. No sick contacts. No supplemental oxygen at home. No recent injuries/falls/syncope or trauma to the abdomen or pelvis. Patient denies smoking, tobacco use, or alcohol use. Patient's vitals are stable at time of admission; normotensive; SpO2 100% on RA. 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 Patient denies fever, sweating, loss of vision, photophobia, neck pain, chest pain, chest palpitations, pleuritic CP, hemoptysis, vomiting, hematemesis, diarrhea, blood in urine/stool, or dark tarry stools/melena. Allergies Allergy/AdvReac Type Severity Reaction Status Date / Time sitagliptin [From ] Allergy Mild HEADACHE Verified 12/18/23 10:25 VOMITING Home Medications Medication Instructions Recorded Confirmed Type aspirin 81 mg tablet,delayed 81 mg PO DAILY #30 tabs 10/18/20 12/18/23 Rx release (Adult Aspirin Regimen) diclofenac sodium 1 % topical gel 4 g topical QID PRN 01/24/21 12/18/23 Rx musculoskeletal pain #100 grams metformin 1,000 mg tablet 1,000 mg PO BID #180 tabs 10/09/23 12/18/23 Rx pravastatin 40 mg tablet 40 mg PO DAILY #90 tabs 10/09/23 12/18/23 Rx albuterol sulfate 90 mcg/actuation 2 puff inhalation Q6H PRN 10/10/23 12/18/23 History aerosol inhaler Shortness Of Breath Or Wheezing blood-glucose meter,continuous #1 ea 11/20/23 11/20/23 Rx (Dexcom G7 Title Search Manager) blood-glucose sensor (Dexcom G7 #1 ea 11/20/23 11/20/23 Rx Sensor device) carbidopa 25 mg-levodopa 100 mg 1 tab PO HS PRN Restless leg #90 12/12/23 12/18/23 Rx tablet tabs hydrochlorothiazide 12.5 mg tablet 12.5 mg PO DAILY 12/18/23 12/18/23 History insulin degludec 100 unit/mL (3 45 unit subcut QPM 12/18/23 12/18/23 History mL) subcutaneous pen (Tresiba FlexTouch U-100 insulin) Past Med/Surg History Medical History (Updated 12/18/23 @ 12:51 by Juan Huddleston PA-C) Cirrhosis Fecal impaction Liver spot BIOSPY DONE DURING LAP LAURA/BENIGN Restless leg syndrome COVID-19 virus infection ASYMTOMATIC 01/2020-NO RESIDUAL EFFECTS Surgical History Nausea and vomiting after administration of anesthetic agent + SLOW TO WAKE UP History of tooth extraction History of liver biopsy (10/28/20) Hx laparoscopic cholecystectomy (10/28/20) History of esophagogastroduodenoscopy (EGD) History of colonoscopy Hx of cataract surgery RT/LEFT S/P appendectomy History of knee surgery LEFT History of hysterectomy Family History Father Brain tumor Grandmother (Maternal) Diabetes Mother Hypertension Daughter Family history of diabetes mellitus Other No family history of adverse response to anesthesia Denies family history of Ovarian cancer Prostate cancer Myocardial infarction Breast cancer Colorectal cancer Social History Smoking Status: Unknown if ever smoked Second Hand Exposure: No; Do You Dip or Chew Tobacco: No; Hx Alcohol Use: No Hx Substance Use: No Preferred Language: Kuwaiti Communication Ability: Effective Visual Impairment: Limited Hearing Ability: Normal Supervisor Felling Bucking Required: No Beliefs That Will Affect Care: None marital status: / Current Living Situation: Family current occupational status: employed 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 How many Children do You have: 2 Feels Safe at Home: Yes Safety Concerns: Feels Safe At This Time Childhood Exposure to Second-Hand Smoke: No Diet: regular caffeine: Yes during the past year weight has: remained stable Dental Care, Regularly: No Physical Activity Frequency: 3-4 Times per Week Seatbelt Use: always Sunscreen Use: No Assistive Devices: None Review of Systems Review of Systems: See HPI above Physical Exam Physical Exam: General: no acute distress; non-toxic appearing; well-nourished; cooperative HEENT: normocephalic, atraumatic; no scleral icterus; PERRLA; vision and hearing intact Neck: supple; no JVD; no lymphadenopathy; trachea midline Skin: Pallor; warm, dry without signs of tenting; no cyanosis; no rashes, bruising, lesions, or erythema noted on the abdomen or back CV: chest wall NTP; RRR; S1/S2 normal; no murmurs/rubs/gallops; pulses intact and symmetric at radial, DP, and PT Lungs: no acute respiratory distress; symmetrical chest wall expansion; clear breath sounds across all lung gallego w/o adventitious sounds; no wheezing ABD: Mild epigastric pain with palpation; soft; BS present; no rebound/guarding; no ascites; no distention; negative CVA tenderness MSK: Restless legs; no edema noted in the LEs b/l, nonerythematous Neuro: A&Ox3; normal mood and affect; fluent speech; no focal deficits; sensation intact in the LEs b/l Results & Data Results & Data Vital Signs (Past 12 Hours) Vital Signs Temp Pulse Pulse Resp BP BP Pulse Ox 12/18/23 10:09 84 18 108/75 100 12/18/23 08:42 89 12/18/23 08:41 87 20 100 12/18/23 08:38 98 H 20 123/58 L 100 12/18/23 08:38 100 12/18/23 08:17 36.7 C 91 H 19 109/65 100 O2 Del Method 12/18/23 10:09 Room Air 12/18/23 08:42 12/18/23 08:41 Room Air 12/18/23 08:38 Room Air 12/18/23 08:38 Room Air 12/18/23 08:17 Room Air Laboratory Results Abnormal lab results 12/18/23 12/18/23 12/18/23 Range/Units 08:33 09:07 09:31 RBC 1.94 L (4.20-5.40) M/uL Hgb 5.1 L* (12.0-16.0) g/dl Hct 17.5 L* (37.0-47.0) % MCHC 29.1 L (32.0-36.0) g/dL RDW Std Deviation 49.9 H (36.4-46.3) fL RDW Coeff of Artemio 15.8 H (11.5-14.5) % Plt Count 126 L (130-400) K/uL MPV 12.5 H (9.4-12.4) fL PT 13.0 H (9.0-12.0) Seconds INR 1.2 H (0.9-1.1) VBG pH 7.45 H (7.36-7.41) VBG pCO2 28 L (38-50) mmHg Chloride 116 H (98-107) mmol/L Carbon Dioxide 19 L (21-32) mmol/L BUN 32 H (6-23) mg/dl BUN/Creatinine Ratio 30.2 H (10-20) Glucose 157 H (70-99(Fasting)) mg/dl Troponin I High Sens 44.1 H (0-14) pg/ml Total Protein 5.9 L (6.0-8.3) gm/dl Crossmatch See Detail Diagnostic Findings Chest X-Ray 12/18/23 08:28 XR chest 1V portable CLINICAL HISTORY: Dyspnea COMPARISON STUDY: Chest radiograph and chest CT October 10, 2023. FINDINGS: Lung volumes are normal. Lungs are clear. There is no pneumothorax or pleural effusion. Cardiac size is stable. Mediastinal contours are normal. There is no evidence for pulmonary edema. IMPRESSION: No acute cardiopulmonary findings. ACT 112: Negative or not required by law. Electronically signed by: Godfrey Dobson M.D. 12/18/2023 8:[address] 12/18/23 08:28 CT OF THE HEAD WITHOUT CONTRAST CLINICAL HISTORY: Ambulatory dysfunction. COMPARISON STUDY: Head CT October 03, 2022. CT DOSE: 625.8 mGy.cm TECHNIQUE: Helical axial images of the head were obtained without IV contrast. Automated exposure control was utilized for the study. A dose lowering techniqu e was utilized adhering to the principles of ALARA. FINDINGS: No acute intracranial hemorrhage, midline shift or mass effect is present. The ventricular system is stable. White matter hypodensities are unchanged and favor small vessel disease. The basal cisterns are patent. No extra-axial collections are present. There are no findings to suggest acute dural sinus thrombosis or acute territorial infarct. No significant calvarial abnormalities are present. Visualized portions of the sinuses and mastoid air cells are clear. IMPRESSION: No acute intracranial findings. ACT 112: Negative or not required by law. Electronically signed by: Godfrey Dobson M.D. 12/18/2023 9:14 AM Code Status & VTE Plan Code Status Full code VTE Prophylaxis Plan VTE Prophylaxis will be ordered: Yes Supervising Physician Co-Signing Physician Notes I personally saw and examined the patient. I independently reviewed the labs, EKG, imaging, problem list, medication list, past medical history and family history. I verified all mary points and agree with Juan Huddleston PA-C with the following exceptions and/or additions: 68 year old female presents to the ER with shortness of breath and dizziness over the last 2 days. However notably had BP medications reduced at last PCP visit at the end of October. Hemoglobin noted to be 5.1. O/E HS RRR, no murmurs, Chest CTAB, Abdo - epigastric pain without guarding or rebound tenderness, no CVA tenderness A/P Acute blood loss anemia / acute GI bleed - Started pantoprazole IV bolus and drip given elevated BUN, epigastric pain even with negative FOB most likely explanation is a GI bleed as the cause of her anemia. Liver cirrhosis noted on CT therefore octreotide and ceftriaxone added. Transfuse to aim Hgb > 7 Otherwise as above PG Care Time/CCT Total # of Minutes Spent Total Time Spent with Patient: Total time spent is greater than 50% in coordination of care (as documented) at patient's floor/unit and/or counseling patient: Coding [place] [address] INT INP/OBS CARE 3/75MIN Patient Type Established Medical Decision Making High Complexity Diagnoses Upper GI bleed K92.2 SOB (shortness of breath) R06.02 Type 2 diabetes mellitus with hyperlipidemia E11.69; E78.5 Elevated troponin R79.89 Hypertension I10 Hypertension type: unspecified Cirrhosis K74.60 Acute blood loss anemia D62 (5) Hypertension Hypertension type: unspecified Qualified Code(s): I10 - Essential (primary) hypertension
[2023-12-18 10:22] LABS: Adenovirus PCR Not Detected (NotDetected); Bordetella parapertussis PCR Not Detected (NotDetected); Bordetella pertussis PCR Not Detected (NotDetected); Chlamydia pneumoniae PCR Not Detected (NotDetected); Coronavirus 229E PCR Not Detected (NotDetected); Coronavirus CoV-2 (COVID19)PCR Not Detected (NotDetected); Coronavirus HKU1 PCR Not Detected (NotDetected); Coronavirus NL63 PCR Not Detected (NotDetected); Coronavirus OC43PCR Not Detected (NotDetected); Human Metapneumovirus PCR Not Detected (NotDetected); Influenza A PCR Not Detected (NotDetected); Influenza B PCR Not Detected (NotDetected); Mycoplasma pneumoniae PCR Not Detected (NotDetected); Parainfluenza Virus 1 PCR Not Detected (NotDetected); Parainfluenza Virus 2 PCR Not Detected (NotDetected); Parainfluenza Virus 3 PCR Not Detected (NotDetected); Parainfluenza Virus 4 PCR Not Detected (NotDetected); Respiratory Syncytial VirusPCR Not Detected (NotDetected); Rhinovirus/Enterovirus PCR Not Detected (NotDetected)
[2023-12-18] MEDS ORDERED: PANTOPRAZOLE BOLUS/DRIP IV STA (10:25)
[2023-12-18 11:03] LABS: Partial Thromboplastin Ratio 0.9; Partial Thromboplastin Time 24 Seconds (21-31)
[2023-12-18] MEDS: SODIUM CHLORIDE 0.9% 250 ML IV PRN (11:09)
[2023-12-18] MEDS: PANTOprazole 80 MG in DEXTROSE 5% 100 ML IV ONE (11:09)
[2023-12-18 11:33] LABS: Ferritin 10.3 ng/ml (8-388)
[2023-12-18 11:44] LABS: Folate (Folic Acid),Ser orPlas 14.75 ng/ml (>5.38)
[2023-12-18] MEDS: PANTOprazole 40 MG in DEXTROSE 5% MINI-B 100 ML IV SCH (12:00)
[2023-12-18 12:01] LABS: Appearance Urine Clear (Clear); Bacteria Urine Automated Negative (Negative); Bilirubin Urine Negative (Negative); Blood Urine 1+ (Negative); Cast Urine Automated 0 /lpf (0-5); Color Urine Orange; Glucose Urine UA Trace (Negative); Ketones Urine Negative (Negative); Leukocyte Esterase Urine Trace (Negative); Nitrite Urine Negative (Negative); Protein Urine Trace (Negative); Specific Gravity Urine 1.015 (1.000-1.030); Urobilinogen Urine Negative (Negative); pH Urine 5.5 (4.5-7.5)
[2023-12-18] MEDS: OPTIRAY 320 100ml IV ONE (12:06)
--- NOTE | 2023-12-18 12:45 | CT Scan Report ---
CT SCAN OF THE ABDOMEN AND PELVIS WITH IV CONTRAST CLINICAL HISTORY: Epigastric abdominal pain. Anemia. COMPARISON STUDY: Abdominal CT dated 12/18/2020. TECHNIQUE: Following the IV administration of 92 cc of Optiray 320, CT scan of the abdomen and pelvi s is performed from the lung bases to the proximal femora. Images are reviewed in the axial, sagittal , and coronal planes. IV contrast was administered without complication. A dose lowering technique wa s utilized adhering to the principles of ALARA. CT DOSE: 1408.89 mGy.cm FINDINGS: Lung bases: The heart is top normal in size and without pericardial effusion. The coronary arteries a re densely calcified. There is a small right pleural effusion with dependent atelectasis. A small hia howie hernia is noted. Liver: The contrast-enhanced liver is mildly enlarged, measuring 20.3 cm in length. Attenuation is he terogeneous. Nodularity of the surface contour suggests morphologic changes of cirrhosis. There is mi ld central intrahepatic biliary ductal dilatation. The hepatic veins and portal veins are patent. Gallbladder: Surgically absent noting clips in the gallbladder fossa. Spleen: The spleen is mildly enlarged measuring 14.2 cm in length. Pancreas: Unremarkable. Adrenal glands: Unremarkable. Kidneys: The contrast enhanced kidneys demonstrate mild cortical atrophy and are without hydronephros is. There is a 1.9 cm calculus in the left renal pelvis. An additional 3 mm nonobstructing calculus i s seen on the left. No right renal calculi are identified on this contrast-enhanced examination. No u reteral stone is seen. The kidneys enhance symmetrically. A 1.8 cm cyst is noted in the left upper po le. Abdominal vasculature: There is advanced atherosclerotic calcification and mild ectasia of the abdomi nal aorta. Bowel: There is rectosigmoid fecal retention and mild to moderate constipation. No bowel obstruction is seen. The appendix is not identified and reported surgically absent. Peritoneum: There is no intraperitoneal free air or abdominal ascites. Lymphadenopathy: None. Pelvic viscera: The bladder is normal as visualized. The uterus is surgically absent. No adnexal lesi on is seen. Skeletal structures: The skeletal structures are osteopenic. Mild to moderate lumbosacral spondylosis is observed. No lytic or blastic lesions are seen. Soft tissues: There is body wall edema. IMPRESSION: 1. No acute infectious or inflammatory findings are identified in the abdomen or pelvis. 2. Rectosigmoid fecal retention and mild to moderate constipation. 3. Small right pleural effusion. 4. Cirrhotic liver morphology. 5. Mild splenomegaly. 6. Left-sided nephrolithiasis. 7. Advanced coronary artery atherosclerosis. 8. Additional findings as above. ACT 112: Negative or not required by law. Electronically signed by: Octavio Somers M.D. 12/18/2023 12:43 PM
[2023-12-18] MEDS ORDERED: STAT IV/IM STA ×2 (12:52→23:47)
[2023-12-18] MEDS ORDERED: Patient's HEIGHT &/or WEIGHT Needed SCH (13:00)
[2023-12-18] MEDS ORDERED: Patient's HEIGHT &/or WEIGHT Needed STA (13:04)
--- NOTE | 2023-12-18 13:12 | Electrocardiogram Report ---
Test Reason : Blood Pressure : / mmHG Vent. Rate : 086 BPM Atrial Rate : 086 BPM P-R Int : 166 ms QRS Dur : 068 ms QT Int : 398 ms P-R-T Axes : 048 -07 022 degrees QTc Int : 476 ms Normal sinus rhythm Possible Anterolateral infarct (cited on or before 18-DEC-2020) Abnormal ECG When compared with ECG of 10-OCT-2023 15:57, Questionable change in initial forces of Lateral leads QT has lengthened Confirmed by Blaze Stratton ([id number]) on 12/18/2023 1:12:10 PM Referred By: Confirmed By:Blaze Stratton
[2023-12-18] MEDS ORDERED: GLUCAGON FOR INJ 1 MG VIAL SQ PRN (13:13)
[2023-12-18] MEDS ORDERED: GLUCOSE 10 TAB/TUBE PO PRN (13:13)
[2023-12-18] MEDS ORDERED: GLUCOSE 40% GEL 15 GM TUBE PO PRN (13:13)
[2023-12-18] MEDS ORDERED: ONDANSETRON INJ 2 MG/ML 2 ML VIAL IV PRN (13:13)
[2023-12-18] MEDS ORDERED: CARBOHYDRATES FOR HYPOGLYCEMIA PO PRN (13:13)
[2023-12-18] MEDS ORDERED: ALBUTEROL HFA 8 GM INHALER INH PRN (13:13)
[2023-12-18] MEDS ORDERED: DICLOFENAC SOD 1% GEL 100 GM TUBE EXT PRN (13:13)
[2023-12-18] MEDS ORDERED: ACETAMINOPHEN 1,000 MG/100 ML VIAL IV PRN (13:13)
[2023-12-18] MEDS: OCTREOTIDE ACETATE 50 MCG in SYRINGE 9.5 ML IV STA (13:29)
[2023-12-18] MEDS: INSULIN ASPART PER UNIT CHARGE SC SCH (14:44)
[2023-12-18 17:03] LABS: Hematocrit (blood only) 23.7 % (37.0-47.0); Hemoglobin 7.4 g/dl (12.0-16.0); Reticulocyte % 4.15 % (0.50-2.00); Reticulocytes # 0.11 10^6/uL (0.020-0.100)
[2023-12-18] MEDS: LANTUS PER UNIT CHARGE SQ SCH (21:00)
[2023-12-18 21:02] LABS: Hematocrit (blood only) 22.5 % (37.0-47.0); Hemoglobin 6.9 g/dl (12.0-16.0)
[2023-12-19] MEDS: OCTREOTIDE ACETATE 500 MCG in 0.9 % SODIUM CHLORIDE 100 ML IV SCH (01:29)
[2023-12-19 04:27] LABS: Basophils # (auto) 0.01 K/uL (0.00-0.20); Basophils % (auto) 0.2 %; Eosinophils # (auto) 0.04 K/uL (0.00-0.50); Eosinophils % (auto) 0.9 %; Hematocrit (blood only) 24.6 % (37.0-47.0); Hemoglobin 7.9 g/dl (12.0-16.0); Immature Granulocytes # (auto) 0.03 K/uL (0.01-0.20); Immature Granulocytes % (auto) 0.7 %; Mean Corpuscular Hemoglobin 27.9 pg (25.0-34.0); Mean Corpuscular Hgb Conc 32.1 g/dL (32.0-36.0); Mean Corpuscular Volume 86.9 fL (80.0-100.0); Mean Platelet Volume 12.4 fL (9.4-12.4); Monocytes % (auto) 6.7 %; Neutrophils # (auto) 2.87 K/uL (1.40-6.50); Neutrophils % (auto) 64.5 %; Platelet Count 104 K/uL (130-400); RDW Standard Deviation 46.3 fL (36.4-46.3); Red Blood Count 2.83 M/uL (4.20-5.40); White Blood Count 4.45 K/ul (4.8-10.8)
[2023-12-19 04:31] LABS: Calcium 8.2 mg/dl (8.6-10.3); Creatinine Clr Calc Pharmacy 49.2 ml/min; Est GFR (Non-African American) 48.3 ml/min; Potassium 3.5 mmol/L (3.5-5.1)
[2023-12-19 04:39] LABS: INR 1.2 (0.9-1.1); Prothrombin Time 12.8 Seconds (9.0-12.0)
[2023-12-19 04:51] LABS: Echinocytes 1+; Polychromasia 1+
[2023-12-19] MEDS: DEXTROSE 50% 50 ML SYRINGE IV PRN (04:53)
--- NOTE | 2023-12-19 07:35 | Hospitalist Progress Note ---
Date of Service December 19, 2023 Assessment & Plan (1) Upper GI bleed: (2) Acute blood loss anemia: (3) Cirrhosis: (4) Type 2 diabetes mellitus with hyperlipidemia: (5) Hyperplastic colon polyp: Plan Patient is a 68 yo F w/ a PMHx of T2DM, hyperlipidemia, Type 1 obesity, HTN, arthritis of hands, hyperplastic colon polyp (5 yrs ago), cholelithiasis but s/p cholecystectomy, s/p appendectomy, s/p hysterectomy, among other conditions presenting for dizziness upon standing, fatigue, dyspnea (rest & exertion) for 2 days. (1) Upper GI bleed: Worsening dizziness with standing, fatigue, and SOB/dyspnea x 2 days Hgb 5.1 on arrival; Last Hgb was 14.6 from 2 months ago BUN/Cr ratio elevated at 30.2 Hemoccult (-) in the ED CT abdomen/pelvic with contrast ordered: 1) no acute or infectious or inflammatory findings, 2) mild-mod constipation, 3) cirrhotic liver morphology, 4) mild splenomegaly, 5) l. sided nephrolithiasis, 6) adv cor art atherosclerosis Anemia labs: 0.110 (4.15%) reticulocytes peripheral blood smear: normocytic anemia and thrombocytopenia w/ RBC spherocytes PTT, 24 s (nml); PT/INR, 12.8/1.2 Upper GI bleed suspected due to epigastric pain, and lack of alternative etiology Keep NPO for now, Protonix drip IV Blood informed consent obtained; 4u pRBCs ordered in the ED Trend H&H q12h; H&H to be drawn 1 hour after completion of transfusion Hold aspirin; avoid NSAIDs Gastroenterology consulted; last colonoscopy >5y ago, found hyperplastic colon polyp, was supposed to get another one but doesn't remember how soon EGD today/findings: Esophagus normal. Duodenum normal. Moderate inflammation w/ erythema found in entire stomach; biopsies taken w/ cold forceps. Gastritis noted. CBC: Hgb, 8.2; WBC, 4.45; Plts, 104 BMP: BUN, 29; BUN/Cr, 25.0; PT/INR, 12.8/1.2 (2) SOB (shortness of breath): Both at rest and with exertion; likely secondary to #1 BioFire negative Supplemental oxygen as needed to maintain SpO2 >94% (3) Type 2 diabetes mellitus with hyperlipidemia: Last A1c at 7.5% on 11/20/2023; no need to repeat Glucose 157 on admission Hold metformin Patient is normally on tresiba 45u HS Recommend decreasing to Lantus 10 u BID while inpatient SSI; with target BSG range 110-140mg/dL, CF 50, carb ratio 17] Keep n.p.o. for now, then advance to T2DM diet as tolerated BSG q6h while NPO, then BSG ACHS Adjust regimen as needed (4) Elevated troponin: Troponin 44.1-->40.6 on arrival EKG NSR at 86 bpm; QTc 476 Clinically, patient denies CP, pleuritic CP Continuous telemetry monitoring (5) Hypertension: Notable hypotension 1 month ago at PCP visit on 11/20/2023; lisinopril and HCTZ were held May indicate that #1 is more sub-acute Hold HCTZ until Hgb returns to normal range (6) Cirrhosis: Cirrhotic morphology, per CT A/P Blood cultures ordered, pending Rocephin 1000 mg IV q24h Octreotide 50mcg IV bolus given in the ED (7) Acute blood loss anemia: Plan Disposition: Admit to PCU telemetry Full code Keep n.p.o. for now, advance to clear liquids/T2DM diet as tolerated VTE PPx: SCDs (hold chemical DVT PPx in setting of potential acute upper GI bleed) Admission and Anticipated Discharge Date Admission Date: December 18, 2023 Supervising Physician Co-Signing Physician Notes I personally examined the patient and verified all mary points of history and exam, discussed case, and agree with decision making with Dr Ball Feeling better after transfusion. Not lightheaded anymore. Has been upright without lightheadedness either. Whenever I see her she is still pending EGD. Vitals noted, in general she is awake and alert fatigued but no distress. HEENT normocephalic atraumatic mucous membranes moist. Breathing unlabored no accessory muscle use good effort. Skin shows no rashes no pallor or icterus. Neuro without focal deficits. Symptomatic anemiawith her cirrhosis history and epigastric painany sort of upper GI bleed and acute blood loss anemia is obviously the diagnosis of exclusion. Appreciate GI taking for EGD this afternoon. Continue current med management pending EGD results. Doing better status post 3 units packed red cells. Hemodynamics are stable. Subjective Saw the patient this morning, feeling better than upon admission, able to get up, walk to bathroom, no dizziness, no dyspnea either at rest or when getting up to use bathroom. Patient does not endorse any pain anywhere. Patient does not drink alcohol, not even socially, pt smoked briefly (~ 5 yrs as teenager). P nilesh sees Dr. Saucedo as her PCP down in [place], associated w/ [facility]. Review of Systems Constitutional: no fever, no chills and no fatigue Respiratory: + cough (dry cough, last few days); no d yspnea and no dyspnea on exertion Cardiovascular: no chest pain and no palpitations Gastrointestinal: no abdominal pain, no bloating, no nausea, no vomiting, no constipation, no diarrhea/loose stools and no blood in stools Genitourinary: no dysuria and no urinary frequency Integumentary: no rash, no erythema and no skin swelling Neurologic: + tingling (in feet from diabetic neurop athy) and + numbness Physical Exam Constitutional: WD/WN, vitals as above Cardiovascular: RRR, no murmur, no edema Extremities: + calf tenderness (left sided) Gastrointestinal (Abdomen): normal bowel sounds, soft, nontender, no hepatosplenomegaly Skin: no teleangiectasias, erythema or other skin manifestations Psychiatric: A+Ox3, euthymic affect Results & Data Results & Data Vital Signs (Past 12 Hours) Vital Signs Temp Pulse Pulse Resp BP BP Pulse Ox 12/19/23 02:45 36.5 C 70 18 138/73 98 12/19/23 01:27 36.5 C 71 18 142/82 H 97 12/19/23 00:54 37 C 68 16 112/67 97 12/18/23 23:54 37 C 78 16 124/70 95 12/18/23 22:54 36.3 C L 81 16 133/78 100 12/18/23 22:24 36.5 C 69 16 129/71 97 12/18/23 22:09 36.4 C L 74 18 134/78 97 12/18/23 21:55 70 12/18/23 21:50 36.5 C 73 19 115/67 96 12/18/23 21:25 O2 Del Method 12/19/23 02:45 Room Air 12/19/23 01:27 12/19/23 00:54 12/18/23 23:54 12/18/23 22:54 12/18/23 22:24 12/18/23 22:09 12/18/23 21:55 12/18/23 21:50 12/18/23 21:25 Room Air
[2023-12-19 09:26] LABS: Hematocrit (blood only) 25.5 % (37.0-47.0); Hemoglobin 8.2 g/dl (12.0-16.0)
--- NOTE | 2023-12-19 10:30 | Gastrointestinal Consultation ---
Date of Consultation December 19, 2023 Assessment & Plan (1) Cirrhosis: (2) Upper GI bleed: Plan Patient is a 68 y.o. female with cirrhosis on CT (new dx) admitted with profound, symptomatic anemia without sx of overt GIB. 1. NPO for now. 2. EGD with Dr. Bacon today for further evaluation. 3. Continue Octreotide/PPI ggts and IV Ceftriaxone. 4. Reglan 10 mg IV x1 now. 5. Further recommendations pending results of testing. Thank you for allowing us to participate in the care of this patient. If you have any questions or concerns, please do not hesitate to contact us. Supervising Physician Co-Signing Physician Notes Agree with MARCOS Triana as above Abd: Soft, NT, ND, +BS Continue current therapy and supportive care Proceed with EGD today History of Present Illness Reason for Consultation: Symptomatic anemia Requesting Physician: Juan Huddleston PA-C Attending Physician: Perfecto Puri DO History of Present Illness Patient is a 68 y.o. female with a history of obesity, NSTEMI, DM, GERD, and colon polyps s/p colonoscopy by Dr. Ramirez on 02/22/2021 admitted with severe, symptomatic anemia. She states she began to develop shortness of breath and dizziness two days prior to arrival. In the ER, she was found to have severe anemia with H&H of 5.1/17.5. She was also found incidentally to have cirrhosis on abdominopelvic CT. She states she was unaware of having cirrhosis and states she was never told that she had a fatty liver and does not consume alcohol. She has been started on Octreotide and PPI ggts as well as IV Ceftriaxone. Patient has received 4 units PRBCs and most recent H&H was 8.2/25.5. She overtly denies any GIB symptoms such as black or tarry stools, bright red blood per rectum or hematemesis. She denies any nausea or vomiting. States she was having epigastric pain at the time of admission but the pain has since resolved. Allergies Allergy/AdvReac Type Severity Reaction Status Date / Time sitagliptin [From Sepuvia] Allergy Mild HEADACHE Verified 12/19/23 13:10 VOMITING Home Medications Medication Instructions Recorded Confirmed Type aspirin 81 mg tablet,delayed 81 mg PO DAILY #30 tabs 10/18/20 12/18/23 Rx release (Adult Aspirin Regimen) diclofenac sodium 1 % topical gel 4 g topical QID PRN 01/24/21 12/18/23 Rx musculoskeletal pain #100 grams metformin 1,000 mg tablet 1,000 mg PO BID #180 tabs 10/09/23 12/18/23 Rx pravastatin 40 mg tablet 40 mg PO DAILY #90 tabs 10/09/23 12/18/23 Rx albuterol sulfate 90 mcg/actuation 2 puff inhalation Q6H PRN 10/10/23 12/18/23 History aerosol inhaler Shortness Of Breath Or Wheezing blood-glucose meter,continuous #1 ea 11/20/23 11/20/23 Rx (Dexcom G7 Operator) blood-glucose sensor (Dexcom G7 #1 ea 11/20/23 11/20/23 Rx Sensor device) carbidopa 25 mg-levodopa 100 mg 1 tab PO HS PRN Restless leg #90 12/12/23 Rx tablet tabs hydrochlorothiazide 12.5 mg tablet 12.5 mg PO DAILY 12/18/23 12/18/23 History insulin degludec 100 unit/mL (3 45 unit subcut QPM 12/18/23 12/18/23 History mL) subcutaneous pen (Tresiba FlexTouch U-100 insulin) Patient History Medical History Cirrhosis Fecal impaction Liver spot BIOSPY DONE DURING LAP LAURA/BENIGN Restless leg syndrome COVID-19 virus infection ASYMTOMATIC 01/2020-NO RESIDUAL EFFECTS Surgical History Nausea and vomiting after administration of anesthetic agent + SLOW TO WAKE UP History of tooth extraction History of liver biopsy (10/28/20) Hx laparoscopic cholecystectomy (10/28/20) History of esophagogastroduodenoscopy (EGD) History of colonoscopy Hx of cataract surgery RT/LEFT S/P appendectomy History of knee surgery LEFT History of hysterectomy Family History Father Brain tumor Grandmother (Maternal) Diabetes Mother Hypertension Daughter Family history of diabetes mellitus Other No family history of adverse response to anesthesia Denies family history of Ovarian cancer Prostate cancer Myocardial infarction Breast cancer Colorectal cancer Social History Smoking Status: Unknown if ever smoked Second Hand Exposure: No; Do You Dip or Chew Tobacco: No; Hx Alcohol Use: No Hx Substance Use: No Preferred Language: Georgian Communication Ability: Effective Visual Impairment: Limited Hearing Ability: Normal Dietary Cook Required: No Beliefs That Will Affect Care: None marital status: / Current Living Situation: Family current occupational status: employed 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 How many Children do You have: 2 Feels Safe at Home: Yes Safety Concerns: Feels Safe At This Time Childhood Exposure to Second-Hand Smoke: No Diet: regular caffeine: Yes during the past year weight has: remained stable Dental Care, Regularly: No Physical Activity Frequency: 3-4 Times per Week Seatbelt Use: always Sunscreen Use: No Assistive Devices: Cane Review of Systems Constitutional: as per Subjective / HPI Respiratory: as per Subjective / HPI Cardiovascular: no chest pain and no palpitations Gastrointestinal: as per Subjective / HPI Physical Exam Constitutional: WD/WN, vitals as above Respiratory: normal respiratory effort, lungs clear to auscultation Cardiovascular: RRR, no murmur, no edema Gastrointestinal (Abdomen): normal bowel sounds, soft, nontender, no hepatosplenomegaly Psychiatric: A+Ox3, euthymic affect Results & Data Vital Signs (Past 12 Hours) Vital Signs Temp Pulse Pulse Resp BP BP Pulse Ox 12/19/23 07:30 36.3 C L 67 18 126/69 99 12/19/23 02:45 36.5 C 70 18 138/73 98 12/19/23 01:27 36.5 C 71 18 142/82 H 97 12/19/23 00:54 37 C 68 16 112/67 97 12/18/23 23:54 37 C 78 16 124/70 95 12/18/23 22:54 36.3 C L 81 16 133/78 100 O2 Del Method 12/19/23 07:30 Room Air 12/19/23 02:45 Room Air 12/19/23 01:27 12/19/23 00:54 12/18/23 23:54 12/18/23 22:54 Diagnostic Findings Laboratory Results WBC 4.45 K/ul (4.8-10.8) L 12/19/23 03:34 RBC 2.83 M/uL (4.20-5.40) L 12/19/23 03:34 Hgb 8.2 g/dl (12.0-16.0) L 12/19/23 09:00 Hct 25.5 % (37.0-47.0) L 12/19/23 09:00 MCV 86.9 fL (80.0-100.0) 12/19/23 03:34 MCH 27.9 pg (25.0-34.0) 12/19/23 03:34 MCHC 32.1 g/dL (32.0-36.0) D 12/19/23 03:34 RDW Std Deviation 46.3 fL (36.4-46.3) 12/19/23 03:34 RDW Coeff of Artemio 15.0 % (11.5-14.5) H 12/19/23 03:34 Plt Count 104 K/uL (130-400) L 12/19/23 03:34 MPV 12.4 fL (9.4-12.4) 12/19/23 03:34 Immature Gran % (Auto) 0.7 % 12/19/23 03:34 Neut % (Auto) 64.5 % 12/19/23 03:34 Lymph % (Auto) 27.0 % 12/19/23 03:34 [place] % (Auto) 6.7 % 12/19/23 03:34 Eos % (Auto) 0.9 % 12/19/23 03:34 Baso % (Auto) 0.2 % 12/19/23 03:34 Reticulocyte % (Auto) 4.15 % (0.50-2.00) H 12/18/23 16:35 Neut # (Auto) 2.87 K/uL (1.40-6.50) 12/19/23 03:34 Lymph # (Auto) 1.20 K/uL (1.20-3.40) 12/19/23 03:34 [place] # (Auto) 0.30 K/uL (0.11-0.59) 12/19/23 03:34 Eos # (Auto) 0.04 K/uL (0.00-0.50) 12/19/23 03:34 Baso # (Auto) 0.01 K/uL (0.00-0.20) 12/19/23 03:34 Reticulocyte # 0.110 10^6/uL (0.020-0.100) H 12/18/23 16:35 Immature Gran # (Auto) 0.03 K/uL (0.01-0.20) 12/19/23 03:34 Polychromasia 1+ 12/19/23 03:34 Hypochromasia Present 12/18/23 08:33 Echinocytes 1+ 12/19/23 03:34 Peripher Smr Path Cons 12/18/23 08:33 Peripher Smr Path Cons Cancelled 12/18/23 08:33 Immature Retic Fraction Cancelled 12/18/23 08:33 Retic Hgb Content Cancelled 12/18/23 08:33 PT 12.8 Seconds (9.0-12.0) H 12/19/23 03:34 INR 1.2 (0.9-1.1) H 12/19/23 03:34 APTT 24 Seconds (21-31) 12/18/23 08:33 PTT Ratio 0.9 12/18/23 08:33 VBG pH 7.45 (7.36-7.41) H 12/18/23 09:07 VBG pCO2 28 mmHg (38-50) L 12/18/23 09:07 VBG pO2 20 mmHg 12/18/23 09:07 VBG HCO3 20 mmol/L 12/18/23 09:07 VBG O2 Saturation < 60.0 % 12/18/23 09:07 VBG Base Excess -3.2 mEq/L 12/18/23 09:07 Sodium 143 mmol/L (136-145) 12/19/23 03:34 Potassium 3.5 mmol/L (3.5-5.1) 12/19/23 03:34 Chloride 117 mmol/L (98-107) H 12/19/23 03:34 Carbon Dioxide 20 mmol/L (21-32) L 12/19/23 03:34 Anion Gap 6 (3-11) 12/19/23 03:34 BUN 29 mg/dl (6-23) H 12/19/23 03:34 Creatinine 1.16 mg/dl (0.6-1.2) 12/19/23 03:34 Est Cr Clr Drug Dosing 49.2 ml/min 12/19/23 03:34 Est GFR ( Amer) 56.0 ml/min 12/19/23 03:34 Est GFR (Non-Af Amer) 48.3 ml/min 12/19/23 03:34 BUN/Creatinine Ratio 25.0 (10-20) H 12/19/23 03:34 Glucose 54 mg/dl (70-99(Fasting)) L 12/19/23 03:34 POC Glucose 110 mg/dl (70-99) H 12/19/23 05:21 Calcium 8.2 mg/dl (8.6-10.3) L 12/19/23 03:34 Magnesium 2.1 mg/dl (1.7-2.4) 12/18/23 08:33 Iron 11 mcg/dl (35-150) L 12/18/23 10:32 TIBC 371 mcg/dl (250-450) 12/18/23 10:32 Unsaturated IBC 360 mcg/dl (155-355) H 12/18/23 10:32 Transferrin % Sat 3 % (15-50) L 12/18/23 10:32 Ferritin 10.3 ng/ml (8-388) 12/18/23 10:32 Total Bilirubin 0.5 mg/dl (0.2-1.0) 12/18/23 08:33 AST 18 U/L (13-39) 12/18/23 08:33 ALT 13 U/L (7-52) 12/18/23 08:33 Alkaline Phosphatase 79 U/L (34-104) 12/18/23 08:33 Lactate Dehydrogenase 139 U/L (86-244) 12/18/23 10:32 Troponin I High Sens 40.6 pg/ml (0-14) H 12/18/23 10:32 B-Natriuretic Peptide 69 pg/ml (0-100) 12/18/23 08:33 Total Protein 5.9 gm/dl (6.0-8.3) L 12/18/23 08:33 Albumin 3.4 gm/dl (3.4-5.0) 12/18/23 08:33 Globulin 2.5 gm/dl (2.5-4.0) 12/18/23 08:33 Albumin/Globulin Ratio 1.4 (0.9-2) 12/18/23 08:33 Vitamin B12 195 pg/ml (180-914) 12/18/23 08:33 Folate 14.75 ng/ml (>5.38) 12/18/23 08:33 Urine Color [place] 12/18/23 11:05 Urine Appearance Clear (Clear) 12/18/23 11:05 Urine pH 5.5 (4.5-7.5) 12/18/23 11:05 Ur Specific [place] 1.015 (1.000-1.030) 12/18/23 11:05 Urine Protein Trace (Negative) H 12/18/23 11:05 Urine Glucose (UA) Trace (Negative) H 12/18/23 11:05 Urine Ketones Negative (Negative) 12/18/23 11:05 Urine Blood 1+ (Negative) H 12/18/23 11:05 Urine Nitrite Negative (Negative) 12/18/23 11:05 Urine Bilirubin Negative (Negative) 12/18/23 11:05 Urine Urobilinogen Negative (Negative) 12/18/23 11:05 Ur Leukocyte Esterase Trace (Negative) H 12/18/23 11:05 Urine WBC (Auto) 10-30 /hpf (0-5) H 12/18/23 11:05 Urine RBC (Auto) 5-10 /hpf (0-4) H 12/18/23 11:05 U Hyaline Cast (Auto) 0 /lpf (0-5) 12/18/23 11:05 U Epithel Cells (Auto) 5-10 /lpf (0-5) H 12/18/23 11:05 Urine Bacteria (Auto) Negative (Negative) 12/18/23 11:05 Urine Yeast Present (None Prsent) A 12/18/23 11:05 Adenovirus (PCR) Not Detected (NotDetected) 12/18/23 09:01 B. pertussis DNA (PCR) Not Detected (NotDetected) 12/18/23 09:01 B.parapertussis DNA PCR Not Detected (NotDetected) 12/18/23 09:01 C. pneumoniae DNA (PCR) Not Detected (NotDetected) 12/18/23 09:01 Coronavirus OC43 (PCR) Not Detected (NotDetected) 12/18/23 09:01 Coronavirus HKU1 (PCR) Not Detected (NotDetected) 12/18/23 09:01 Coronavirus 229E (PCR) Not Detected (NotDetected) 12/18/23 09:01 SARS-CoV-2 (PCR) Not Detected (NotDetected) 12/18/23 09:01 Coronavirus NL63 (PCR) Not Detected (NotDetected) 12/18/23 09:01 Human Metapneumovir PCR Not Detected (NotDetected) 12/18/23 09:01 Influenza Type A (PCR) Not Detected (NotDetected) 12/18/23 09:01 Influenza Type B (PCR) Not Detected (NotDetected) 12/18/23 09:01 M. pneumoniae (PCR) Not Detected (NotDetected) 12/18/23 09:01 Parainfluenza 1 (PCR) Not Detected (NotDetected) 12/18/23 09:01 Parainfluenza 2 (PCR) Not Detected (NotDetected) 12/18/23 09:01 Parainfluenza 3 (PCR) Not Detected (NotDetected) 12/18/23 09:01 Parainfluenza 4 (PCR) Not Detected (NotDetected) 12/18/23 09:01 RSV (PCR) Not Detected (NotDetected) 12/18/23 09:01 Entero/Rhino (PCR) Not Detected (NotDetected) 12/18/23 09:01 Blood Type A Positive 12/18/23 09:31 Blood Type Recheck A Positive 12/18/23 09:56 Antibody Screen NEGATIVE 12/18/23 09:31 Crossmatch See Detail 12/18/23 09:31 Impressions Chest X-Ray 12/18/23 08:28 XR chest 1V portable CLINICAL HISTORY: Dyspnea COMPARISON STUDY: Chest radiograph and chest CT October 10, 2023. FINDINGS: Lung volumes are normal. Lungs are clear. There is no pneumothorax or pleural effusion. Cardiac size is stable. Mediastinal contours are normal. There is no evidence for pulmonary edema. IMPRESSION: No acute cardiopulmonary findings. ACT 112: Negative or not required by law. Electronically signed by: Godfrey Dobson M.D. 12/18/2023 8:[address] 12/18/23 08:28 CT OF THE HEAD WITHOUT CONTRAST CLINICAL HISTORY: Ambulatory dysfunction. COMPARISON STUDY: Head CT October 03, 2022. CT DOSE: 625.8 mGy.cm TECHNIQUE: Helical axial images of the head were obtained without IV contrast. Automated exposure control was utilized for the study. A dose lowering technique was utilized adhering to the principles of ALARA. FINDINGS: No acute intracranial hemorrhage, midline shift or mass effect is present. The ventricular system is stable. White matter hypodensities are unchanged and favor small vessel disease. The basal cisterns are patent. No extra-axial collections are present. There are no findings to suggest acute dural sinus thrombosis or acute territorial infarct. No significant calvarial abnormalities are present. Visualized portions of the sinuses and mastoid air c ells are clear. IMPRESSION: No acute intracranial findings. ACT 112: Negative or not required by law. Electronically signed by: Godrfey Dobson M.D. 12/18/2023 9:14 AM Abdomen/Pelvis CT 12/18/23 10:49 CT SCAN OF THE ABDOMEN AND PELVIS WITH IV CONTRAST CLINICAL HISTORY: Epigastric abdominal pain. Anemia. COMPARISON STUDY: Abdominal CT dated 12/18/2020. TECHNIQUE: Following the IV administration of 92 cc of Optiray 320, CT scan of the abdomen and pelvis is performed from the lung bases to the proximal femora. Images are reviewed in the axial, sagittal, and coronal planes. IV contrast was administered without complication. A dose lowering technique was utilized adhering to the principles of ALARA. CT DOSE: 1408.89 mGy.cm FINDINGS: Lung bases: The heart is top normal in size and without pericardial effusion. The coronary arteries are densely calcified. There is a small right pleural effusion with dependent atelectasis. A small hiatal hernia is noted. Liver: The contrast-enhanced liver is mildly enlarged, measuring 20.3 cm in length. Attenuation is heterogeneous. Nodularity of the surface contour suggests morphologic changes of cirrhosis. There is mild central intrahepatic biliary ductal dilatation. The hepatic veins and portal veins are patent. Gallbladder: Surgically absent noting clips in the gallbladder fossa. Spleen: The spleen is mildly enlarged measuring 14.2 cm in length. Pancreas: Unremarkable. Adrenal glands: Unremarkable. Kidneys: The contrast enhanced kidneys demonstrate mild cortical atrophy and are without hydronephrosis. There is a 1.9 cm calculus in the left renal pelvis. An additional 3 mm nonobstructing calculus is seen on the left. No right renal calculi are identified on this contrast-enhanced examination. No ureteral stone is seen. The kidneys enhance symmetrically. A 1.8 cm cyst is noted in the left upper pole. Abdominal vasculature: There is advanced atherosclerotic calcification and mild ectasia of the abdominal aorta. Bowel: There is rectosigmoid fecal retention and mild to moderate constipation. No bowel obstruction is seen. The appendix is not identified and reported surgically absent. Peritoneum: There is no intraperitoneal free air or abdominal ascites. Lymphadenopathy: None. Pelvic viscera: The bladder is normal as visualized. The uterus is surgically absent. No adnexal lesion is seen. Skeletal structures: The skeletal structures are osteopenic. Mild to moderate lumbosacral spondylosis is observed. No lytic or blastic lesions are seen. Soft tissues: There is body wall edema. IMPRESSION: 1. No acute infectious or inflammatory findings are identified in the abdomen or pelvis. 2. Rectosigmoid fecal retention and mild to moderate constipation. 3. Small right pleural effusion. 4. Cirrhotic liver morphology. 5. Mild splenomegaly. 6. Left-sided nephrolithiasis. 7. Advanced coronary artery atherosclerosis. 8. Additional findings as above. ACT 112: Negative or not required by law. Electronically signed by: Octavio Somers M.D. 12/18/2023 12:43 PM PG Care Time/CCT Total # of Minutes Spent Total Time Spent with Patient: Total time spent is greater than 50% in coordination of care (as documented) at patient's floor/unit and/or counseling patient: Coding Level of Care Code 04216 INT INP/OBS CARE 3/75MIN Diagnoses Cirrhosis K74.60 Upper GI bleed K92.2
[2023-12-19 10:58] LABS: Hemoglobin 5.1 g/dl (12.0-16.0)
[2023-12-19 10:59] LABS: Hematocrit (blood only) 17.5 % (37.0-47.0)
[2023-12-19] MEDS: cefTRIAXone SODIUM 2,000 MG in DEXTROSE 5 % MINI-B 50 ML IV SCH (11:49)
[2023-12-19] MEDS: METOCLOPRAMIDE HCL INJ 5 MG/ML 2 ML VIAL IV STA (11:49)
[2023-12-19] MEDS ORDERED: cefTRIAXone SODIUM 1,000 MG in DEXTROSE 5 % MINI-B 50 ML IV SCH (12:00)
--- NOTE | 2023-12-19 14:14 | Anesthesiology Consultation ---
Date of Service December 19, 2023 Assessment & Plan Consults Requested medical & cardiac Pulmonary History Surgery Operation Date: 12/19/23 17:00 Proposed Procedures p Esophagogastroduodenoscopy Dr Jordi Sultana Case, DO Pt with anemia and melena. Transfused 2 units PRBC. For EGD Height/Weight Height: 5 ft 3 in Weight: 88.9 kg Allergies Allergy/AdvReac Type Severity Reaction Status Date / Time sitagliptin [From ] Allergy Mild HEADACHE Verified 12/19/23 13:10 VOMITING Medications Home Medications Medication Instructions Recorded Confirmed Last Taken aspirin 81 mg tablet,delayed 81 mg PO DAILY #30 tabs 10/18/20 12/18/23 12/17/23 release (Adult Aspirin Regimen) diclofenac sodium 1 % topical gel 4 g topical QID PRN 01/24/21 12/18/23 Unknown musculoskeletal pain #100 grams metformin 1,000 mg tablet 1,000 mg PO BID #180 tabs 10/09/23 12/18/23 12/17/23 pravastatin 40 mg tablet 40 mg PO DAILY #90 tabs 10/09/23 12/18/23 12/17/23 albuterol sulfate 90 mcg/actuation 2 puff inhalation Q6H PRN 10/10/23 12/18/23 Unknown aerosol inhaler Shortness Of Breath Or Wheezing blood-glucose meter,continuous #1 ea 11/20/23 11/20/23 Unknown (Dexcom G7 Veterinary Assistant Technician) blood-glucose sensor (Dexcom G7 #1 ea 11/20/23 11/20/23 Unknown Sensor device) carbidopa 25 mg-levodopa 100 mg 1 tab PO HS PRN Restless leg #90 12/12/23 12/18/23 Unknown tablet tabs hydrochlorothiazide 12.5 mg tablet 12.5 mg PO DAILY 12/18/23 12/18/23 12/17/23 insulin degludec 100 unit/mL (3 45 unit subcut QPM 12/18/23 12/18/23 12/18/23 mL) subcutaneous pen (Tresiba FlexTouch U-100 insulin) Active Medications Generic Name Dose Route Start Last Admin Trade Name Freq PRN Reason Stop Dose Admin Dextrose 25 - 50 ml 12/18/23 13:13 12/19/23 04:53 Dextrose 50% 50 Ml Syringe IV 01/17/24 13:12 25 ml UD PRN Administration Hypoglycemia Protocol Protocol Pantoprazole Sodium 40 mg/ 100 mls @ 20 mls/hr 12/18/23 11:00 12/19/23 09:08 Dextrose IV 01/17/24 10:59 8 mg/hr Q5H MARIO 20 mls/hr Administration 8 MG/HR Octreotide Acetate 500 mcg/ 100.5 mls @ 10.05 mls/hr 12/19/23 00:00 12/19/23 09:48 Sodium Chloride IV 01/18/24 00:00 50 mcg/hr .Q10H MARIO 10.1 mls/hr Administration 50 MCG/HR Ceftriaxone Sodium 2,000 mg/ 50 mls @ 100 mls/hr 12/19/23 12:00 12/19/23 12:20 Dextrose IV 12/26/23 11:59 Infused Q24H MARIO Infusion Insulin Aspart 0 units 12/18/23 13:13 12/19/23 12:07 Insulin Aspart Per Unit Charge SC 01/17/24 13:12 Not Given Q6 MARIO Insulin Glargine 10 units 12/18/23 21:00 12/18/23 21:00 Lantus Per Unit Charge SQ 01/17/24 20:59 Not Given BID MARIO NPO Date Last Intake of Fluids: 12/17/23 Time Last Intake of Fluids: 21:00 Date Last Intake of Solids: 12/17/23 Past Medical History Medical History Cirrhosis Fecal impaction Liver spot BIOSPY DONE DURING LAP LAURA/BENIGN Restless leg syndrome COVID-19 virus infection ASYMTOMATIC 01/2020-NO RESIDUAL EFFECTS Past Family History Family History Father Brain tumor Grandmother (Maternal) Diabetes Mother Hypertension Daughter Family history of diabetes mellitus Other No family history of adverse response to anesthesia Denies family history of Ovarian cancer Prostate cancer Myocardial infarction Breast cancer Colorectal cancer Past Surgical History Surgical History Nausea and vomiting after administration of anesthetic agent + SLOW TO WAKE UP History of tooth extraction History of liver biopsy (10/28/20) Hx laparoscopic cholecystectomy (02/04/21) History of esophagogastroduodenoscopy (EGD) History of colonoscopy Hx of cataract surgery RT/LEFT S/P appendectomy History of knee surgery LEFT History of hysterectomy Social History Smoking Status: Unknown if ever smoked Do You Dip or Chew Tobacco: No Hx Alcohol Use: No Hx Substance Use: No Physical Exam Vital Signs Last Vital Signs Temp 36.9 C 12/19/23 13:12 Pulse 74 12/19/23 13:12 Resp 16 12/19/23 13:12 BP 157/72 H 12/19/23 13:12 Pulse Ox 96 12/19/23 13:12 O2 Del Method Room Air 12/19/23 13:12 Testing Laboratory Results 12/19/23 09:00 12/19/23 03:34 PT 12.8 Seconds (9.0-12.0) H 12/19/23 03:34 INR 1.2 (0.9-1.1) H 12/19/23 03:34 APTT 24 Seconds (21-31) 12/18/23 08:33 Urine Color [place] 12/18/23 11:05 Urine Appearance Clear (Clear) 12/18/23 11:05 Urine pH 5.5 (4.5-7.5) 12/18/23 11:05 Ur Specific [place] 1.015 (1.000-1.030) 12/18/23 11:05 Urine Protein Trace (Negative) H 12/18/23 11:05 Urine Glucose (UA) Trace (Negative) H 12/18/23 11:05 Urine Ketones Negative (Negative) 12/18/23 11:05 Urine Nitrite Negative (Negative) 12/18/23 11:05 Ur Leukocyte Esterase Trace (Negative) H 12/18/23 11:05 Urine WBC (Auto) 10-30 /hpf (0-5) H 12/18/23 11:05 Urine RBC (Auto) 5-10 /hpf (0-4) H 12/18/23 11:05 U Hyaline Cast (Auto) 0 /lpf (0-5) 12/18/23 11:05 U Epithel Cells (Auto) 5-10 /lpf (0-5) H 12/18/23 11:05 Urine Bacteria (Auto) Negative (Negative) 12/18/23 11:05 Blood Type A Positive 12/18/23 09:31 Antibody Screen NEGATIVE 12/18/23 09:31 12/18/23 09:08 Aerobic Blood Culture - Preliminary Blood No growth in Aerobic bottle after 24 hours. Anaerobic Blood Culture - Preliminary No growth in Anaerobic bottle after 24 hours. 12/18/23 11:05 Urine Culture - Preliminary Urine,Clean Catch Pin-point growth present, reincubating. 12/19/23 12/19/23 12/19/23 12:06 05:21 04:50 POC Glucose 93 110 H 63 L*
--- NOTE | 2023-12-19 14:33 | GI REPORT ---
Patient Name: Karly Grayson Procedure Date: 12/19/2023 1:45 PM Date of : 1955 Admit Type: Inpatient Age: 68 Gender: Female Attending MD: Jose Bacon DO, Procedure: Upper GI endoscopy Providers: Jose Bacon DO Referring MD: Perfecto Puri Indications: Acute post hemorrhagic anemia Medicines: Monitored Anesthesia Care Complications: No immediate complications. Estimated Blood Loss: Estimated blood loss: none. Procedure: Pre-Anesthesia Assessment: - Prior to the procedure, a History and Physical was performed, and patient medications and allergies were reviewed. The patient's tolerance of previous anesthesia was also reviewed. The risks and benefits of the procedure and the sedation options and risks were discussed with the patient. All questions were answered, and informed consent was obtained. Prior Anticoagulants: The patient has taken no anticoagulant or antiplatelet agents except for aspirin. ASA Grade Assessment: III - A patient with severe systemic disease. After reviewing the risks and benefits, the patient was deemed in satisfactory condition to undergo the procedure. After obtaining informed consent, the endoscope was passed under direct vision. Throughout the procedure, the patient's blood pressure, pulse, and oxygen saturations were monitored continuously. The Endoscope was introduced through the mouth, and advanced to the second part of duodenum. The upper GI endoscopy was accomplished without difficulty. The patient tolerated the procedure well. Findings: The esophagus was normal. Diffuse moderate inflammation characterized by erythema was found in the entire examined stomach. Biopsies were taken with a cold forceps for histology. The examined duodenum was normal. Impression: - Normal esophagus. - Gastritis. Biopsied. - Normal examined duodenum. Recommendation: - [facility] patient [facility] for [facility] care. - Resume previous diet. - Continue present medications. - Await pathology results. Jose Bacon DO 12/19/2023 2:32:42 PM This report has been signed electronically. Note Initiated On: 12/19/2023 1:45 PM Number of Addenda: 0 I attest to the content of the Intraoperative Record and orders documented therein, exceptions below {[id number]}
--- NOTE | 2023-12-19 15:06 | Anesthesiology Progress Note ---
Date of Service December 19, 2023 Anesthesia Post Procedure Vital Signs Vital Signs: Temp Pulse Pulse Resp BP BP Pulse Ox 12/19/23 14:47 71 16 154/73 H 98 12/19/23 14:32 67 16 117/53 L 99 12/19/23 13:12 36.9 C 74 16 157/72 H 96 12/19/23 10:50 36.6 C 67 18 137/73 97 12/19/23 10:39 63 12/19/23 07:30 36.3 C L 67 18 126/69 99 12/19/23 02:45 36.5 C 70 18 138/73 98 12/19/23 01:27 36.5 C 71 18 142/82 H 97 12/19/23 00:54 37 C 68 16 112/67 97 12/18/23 23:54 37 C 78 16 124/70 95 12/18/23 22:54 36.3 C L 81 16 133/78 100 12/18/23 22:24 36.5 C 69 16 129/71 97 12/18/23 22:09 36.4 C L 74 18 134/78 97 12/18/23 21:55 70 12/18/23 21:50 36.5 C 73 19 115/67 96 12/18/23 21:25 12/18/23 19:19 36.7 C 77 18 122/60 99 12/18/23 15:47 82 12/18/23 15:40 12/18/23 15:15 36.9 C 78 18 133/75 97 O2 Del Method 12/19/23 14:47 Room Air 12/19/23 14:32 Room Air 12/19/23 13:12 Room Air 12/19/23 10:50 Room Air 12/19/23 10:39 12/19/23 07:30 Room Air 12/19/23 02:45 Room Air 12/19/23 01:27 12/19/23 00:54 12/18/23 23:54 12/18/23 22:54 12/18/23 22:24 12/18/23 22:09 12/18/23 21:55 12/18/23 21:50 12/18/23 21:25 Room Air 12/18/23 19:19 Room Air 12/18/23 15:47 12/18/23 15:40 Room Air 12/18/23 15:15 Transfer of Care Handoff Completed per policy Notes Mental Status: alert / awake / arousable and participated in evaluation Nausea / Vomiting: adequately controlled Pain: adequately controlled Airway Patency, RR, SpO2: stable & adequate BP & HR: stable & adequate Hydration State: stable & adequate Anesthetic Complications: no major complications apparent and Pt Satisfied with anesthetic care
[2023-12-19] MEDS: PROPOFOL IV EMULSION 10 MG/ML 20 ML VIAL IV ONE (15:48)
[2023-12-19] MEDS: LIDOCAINE 2% 2 ML VIAL/AMP(20MG/ML) INFIL ONE (15:48)
[2023-12-19] MEDS ORDERED: Nursing to Pharmacy Communication SCH (16:45)
[2023-12-19] MEDS: INSULIN ASPART PER UNIT CHARGE SC SCH (17:21)
--- NOTE | 2023-12-19 17:44 | Billing Data ---
Date of Service December 19, 2023 Coding Level of Care Code 70793 SUB INP/OBS CARE MIN
[2023-12-19 21:04] LABS: Hematocrit (blood only) 25.6 % (37.0-47.0); Hemoglobin 8.1 g/dl (12.0-16.0)
--- NOTE | 2023-12-20 06:40 | Hospitalist Progress Note ---
Date of Service December 20, 2023 Assessment & Plan (1) Upper GI bleed: (2) Acute blood loss anemia: (3) Cirrhosis: (4) Type 2 diabetes mellitus with hyperlipidemia: (5) Hyperplastic colon polyp: Plan Patient is a 68 yo F w/ a PMHx of T2DM, hyperlipidemia, Type 1 obesity, HTN, arthritis of hands, hyperplastic colon polyp (5 yrs ago), cholelithiasis but s/p cholecystectomy, s/p appendectomy, s/p hysterectomy, among other conditions presenting for dizziness upon standing, fatigue, dyspnea (rest & exertion) for 2 days. (1) Upper GI bleed: Worsening dizziness with standing, fatigue, and SOB/dyspnea x 2 days Hgb 5.1 on arrival; Last Hgb was 14.6 from 2 months ago BUN/Cr ratio elevated at 30.2 Hemoccult (-) in the ED CT abdomen/pelvic with contrast ordered: 1) no acute or infectious or inflammatory findings, 2) mild-mod constipation, 3) cirrhotic liver morphology, 4) mild splenomegaly, 5) l. sided nephrolithiasis, 6) adv cor art atherosclerosis Anemia labs: 0.110 (4.15%) reticulocytes peripheral blood smear: normocytic anemia and thrombocytopenia w/ RBC spherocytes PTT, 24 s (nml); PT/INR, 12.8/1.2 Upper GI bleed suspected due to epigastric pain, and lack of alternative etiology Keep NPO for now, Protonix drip IV Blood informed consent obtained; 4u pRBCs ordered in the ED Trend H&H q12h; H&H to be drawn 1 hour after completion of transfusion Hold aspirin; avoid NSAIDs Gastroenterology consulted; last colonoscopy >5y ago, found hyperplastic colon polyp, was supposed to get another one but doesn't remember how soon EGD today/findings: Esophagus normal. Duodenum normal. Moderate inflammation w/ erythema found in entire stomach; biopsies taken w/ cold forceps. Gastritis noted. CBC: Hgb, 8.2; WBC, 4.45; Plts, 104 BMP: BUN, 29; BUN/Cr, 25.0; PT/INR, 12.8/1.2 (2) SOB (shortness of breath): Both at rest and with exertion; likely secondary to #1 BioFire negative Supplemental oxygen as needed to maintain SpO2 >94% (3) Type 2 diabetes mellitus with hyperlipidemia: Last A1c at 7.5% on 11/20/2023; no need to repeat Glucose 157 on admission Hold metformin Patient is normally on tresiba 45u HS Recommend decreasing to Lantus 10 u BID while inpatient SSI; with target BSG range 110-140mg/dL, CF 50, carb ratio 17] Keep n.p.o. for now, then advance to T2DM diet as tolerated BSG q6h while NPO, then BSG ACHS Adjust regimen as needed (4) Elevated troponin: Troponin 44.1-->40.6 on arrival EKG NSR at 86 bpm; QTc 476 Clinically, patient denies CP, pleuritic CP Continuous telemetry monitoring (5) Hypertension: Notable hypotension 1 month ago at PCP visit on 11/20/2023; lisinopril and HCTZ were held May indicate that #1 is more sub-acute Hold HCTZ until Hgb returns to normal range (6) Cirrhosis: Cirrhotic morphology, per CT A/P Blood cultures ordered, pending Rocephin 1000 mg IV q24h Octreotide 50mcg IV bolus given in the ED (7) Acute blood loss anemia: Plan Disposition: Admit to PCU telemetry Full code Keep n.p.o. for now, advance to clear liquids/T2DM diet as tolerated VTE PPx: SCDs (hold chemical DVT PPx in setting of potential acute upper GI bleed) Admission and Anticipated Discharge Date Admission Date: December 18, 2023 Subjective Saw the patient this morning, feeling better than upon admission, able to get up, walk to bathroom, no dizziness, no dyspnea either at rest or when getting up to use bathroom. Patient does not endorse any pain anywhere. Patient does not drink alcohol, not even socially, pt smoked briefly (~ 5 yrs as teenager). Patient sees Dr. Saucedo as her PCP down in [place], associated w/ [facility]. Review of Systems Constitutional: no fever, no chills and no fatigue Respiratory: + cough (dry cough, last few days); no d yspnea and no dyspnea on exertion Cardiovascular: no chest pain and no palpitations Gastrointestinal: no abdominal pain, no bloating, no nausea, no vomiting, no constipation, no diarrhea/loose stools and no blood in stools Genitourinary: no dysuria and no urinary frequency Integumentary: no rash, no erythema and no skin swelling Neurologic: + tingling (in feet from diabetic neurop athy) and + numbness Physical Exam Constitutional: WD/WN, vitals as above Cardiovascular: RRR, no murmur, no edema Extremities: + calf tenderness (left sided) Gastrointestinal (Abdomen): normal bowel sounds, soft, nontender, no hepatosplenomegaly Psychiatric: A+Ox3, euthymic affect Results & Data Results & Data Vital Signs (Past 12 Hours) Vital Signs Temp Pulse Resp BP Pulse Ox O2 Del Method 12/20/23 04:00 36.5 C 70 18 140/76 96 Room Air 12/19/23 22:43 36.6 C 82 18 137/67 94 Room Air 12/19/23 19:35 36.6 C 67 18 130/64 97 Room Air
[2023-12-20 07:15] LABS: Hematocrit (blood only) 27.3 % (37.0-47.0); Hemoglobin 8.5 g/dl (12.0-16.0); Mean Corpuscular Hemoglobin 27.9 pg (25.0-34.0); Mean Corpuscular Hgb Conc 31.1 g/dL (32.0-36.0); Mean Corpuscular Volume 89.5 fL (80.0-100.0); Mean Platelet Volume 12.1 fL (9.4-12.4); Platelet Count 99 K/uL (130-400); RDW Coefficient of Variation 15.8 % (11.5-14.5); RDW Standard Deviation 49.8 fL (36.4-46.3); Red Blood Count 3.05 M/uL (4.20-5.40); White Blood Count 3.93 K/ul (4.8-10.8)
[2023-12-20 07:36] LABS: Basophils # (auto) 0.02 K/uL (0.00-0.20); Basophils % (auto) 0.5 %; Eosinophils # (auto) 0.02 K/uL (0.00-0.50); Eosinophils % (auto) 0.5 %; Immature Granulocytes # (auto) 0.01 K/uL (0.01-0.20); Immature Granulocytes % (auto) 0.3 %; Lymphocytes # (auto) 0.88 K/uL (1.20-3.40); Lymphocytes % (auto) 22.4 %; Monocytes # (auto) 0.24 K/uL (0.11-0.59); Monocytes % (auto) 6.1 %; Neutrophils # (auto) 2.76 K/uL (1.40-6.50); Neutrophils % (auto) 70.2 %; Polychromasia 1+
[2023-12-20 07:39] LABS: Calcium 8.3 mg/dl (8.6-10.3)
[2023-12-20 07:45] LABS: BUN Creatinine Ratio 16.2 (10-20); Creatinine Clr Calc Pharmacy 40.1 ml/min; Est GFR (African American) 43.9 ml/min; Est GFR (Non-African American) 37.9 ml/min
[2023-12-20] MEDS: CYANOCOBALAMIN 1000 MCG/ML VIAL IM SCH (08:35)
[2023-12-20] MEDS: LACTATED RINGER'S 1,000 ML IV SCH (08:35)
[2023-12-20] MEDS: IRON SUCROSE 200 MG in 0.9 % SODIUM CHLORIDE 100 ML IV ONE (08:35)
[2023-12-20] MEDS: PANTOprazole 40 MG TAB PO SCH (08:40)
--- NOTE | 2023-12-20 16:04 | Hospitalist Progress Note ---
Date of Service December 20, 2023 Assessment & Plan (1) Upper GI bleed: (2) Anemia: (3) Type 2 diabetes mellitus with hyperlipidemia: (4) Hypertension: Plan ZAIRE is a 68 y/o Female presenting for SOB, Dizziness, and Gait Instability over the last 48 hours found to be profoundly anemic in the ED. (1) Upper GI Bleed * SOB, Dizzines, profound anemia w/ iron studies all consistent w/ JONAH * Known h/o cirrhosis 2/2 [id number] * PMH of profound anemia requiring transfusion * EGD 12/18 showed normal esophagus, Diffuse moderate inflammation characterized by erythema throughout the entire stomach * Follow clinically * F/u with outpatient for Colonoscopy * Protonix 40 mg for 3 months outpatient for acid suppression (2) Anemia * Hemodynamically stable, no SOB, able to Ambulate * Add 325mg Ferrous gluconate QD to replenish Iron outpatient * Add 1000 B12 PO supplement QD outpatient (3) DM2 w/ HLD * Last A1c at 7.5% on 11/20/2023; no need to repeat * Glucose 157 on admission * Hold metformin * Patient is normally on Tresiba 45u HS * Lantus 10 u BID while inpatient * SSI; with target BSG range 110-140mg/dL, CF 50, carb ratio 17] * Keep n.p.o. for now, then advance to T2DM diet as tolerated * BSG q6h while NPO, then BSG ACHS * Adjust regimen as needed * Resume home diabetes medication regimen on d/c (5) HTN * BP 172/84 this afternoon * Resume home BP meds on d/c Full code Advance to clear liquids/T2DM diet as tolerated VTE PPx: SCDs (hold chemical DVT PPx in setting of potential acute upper GI bleed) Admission and Anticipated Discharge Date Admission Date: December 18, 2023 Subjective Feeling much less weak, no more abd tenderness, feeling ready to go home. No bleeding from any orifaces that she has noticed. States that she has been up moving around, to the bathroom. No BM overnight, able to urinate. Has eaten broth, jello, tea. No SOB, normal respiratory effort, no accessory muscle use. Review of Systems Review of Systems: ROS negative excepting HPI Physical Exam Physical Exam: GEN: AAO x4, Well Appearing, NAD HEENT: Scleral Pallor, NC/AT, PERRLA, EOMI, Good Conjugate Gaze, Nares Patent, MMM NECK: Supple, No LAD, No Thyromegaly, Normal ROM RESP: CTAB, No WRR, Normal Respiratory Effort CV: RRR, Normal S1/S2, No M/R/G ABD: Soft, Non-tender, Non-distended, no guarding or rebound, Normal Bowel Sounds, No Hepatosplenomegaly, No Masses EXT: Normal Tone & ROM, No Edema, No cyanosis NEURO: CN II-XII Intact, Sensation intact b/l DERM: Skin Intact, No Rashes, No Lesions, No Erythema Results & Data Results & Data Vital Signs (Past 12 Hours) Vital Signs Temp Pulse Pulse Resp BP BP Pulse Ox 12/20/23 15:48 36.5 C 79 20 172/84 H 96 12/20/23 11:31 36.6 C 70 18 157/75 H 96 12/20/23 08:00 75 12/20/23 07:51 36.5 C 69 20 168/72 H 96 12/20/23 04:00 36.5 C 70 18 140/76 96 O2 Del Method 12/20/23 15:48 Room Air 12/20/23 11:31 Room Air 12/20/23 08:00 12/20/23 07:51 Room Air 12/20/23 04:00 Room Air Laboratory Results 12/20/23 12/20/23 12/20/23 11:06 07:22 06:22 WBC 3.93 L RBC 3.05 L Hgb 8.5 L Hct 27.3 L MCV 89.5 MCH 27.9 MCHC 31.1 L RDW Std Deviation 49.8 H RDW Coeff of Artemio 15.8 H Plt Count 99 L MPV 12.1 Immature Gran % (Auto) 0.3 Neut % (Auto) 70.2 Lymph % (Auto) 22.4 Sharkey % (Auto) 6.1 Eos % (Auto) 0.5 Baso % (Auto) 0.5 Neut # (Auto) 2.76 Lymph # (Auto) 0.88 L Sharkey # (Auto) 0.24 Eos # (Auto) 0.02 Baso # (Auto) 0.02 Immature Gran # (Auto) 0.01 Polychromasia 1+ Sodium 144 Potassium 4.0 Chloride 116 H Carbon Dioxide 22 Anion Gap 6 BUN 23 Creatinine 1.42 H Est Cr Clr Drug Dosing 40.1 Est GFR ( Amer) 43.9 Est GFR (Non-Af Amer) 37.9 BUN/Creatinine Ratio 16.2 Glucose 154 H POC Glucose 190 H 162 H Calcium 8.3 L Crossmatch 12/19/23 12/19/23 12/19/23 20:44 20:09 16:22 WBC RBC Hgb 8.1 L Hct 25.6 L MCV MCH MCHC RDW Std Deviation RDW Coeff of Artemio Plt Count MPV Immature Gran % (Auto) Neut % (Auto) Lymph % (Auto) Sharkey % (Auto) Eos % (Auto) Baso % (Auto) Neut # (Auto) Lymph # (Auto) Sharkey # (Auto) Eos # (Auto) Baso # (Auto) Immature Gran # (Auto) Polychromasia Sodium Potassium Chloride Carbon Dioxide Anion Gap BUN Creatinine Est Cr Clr Drug Dosing Est GFR ( Amer) Est GFR (Non-Af Amer) BUN/Creatinine Ratio Glucose POC Glucose 159 H 92 Calcium Crossmatch 12/18/23 09:31 WBC RBC Hgb Hct MCV MCH MCHC RDW Std Deviation RDW Coeff of Artemio Plt Count MPV Immature Gran % (Auto) Neut % (Auto) Lymph % (Auto) Sharkey % (Auto) Eos % (Auto) Baso % (Auto) Neut # (Auto) Lymph # (Auto) Sharkey # (Auto) Eos # (Auto) Baso # (Auto) Immature Gran # (Auto) Polychromasia Sodium Potassium Chloride Carbon Dioxide Anion Gap BUN Creatinine Est Cr Clr Drug Dosing Est GFR ( Amer) Est GFR (Non-Af Amer) BUN/Creatinine Ratio Glucose POC Glucose Calcium Crossmatch See Detail Medications Administered Current Inpatient Medications Albuterol (Albuterol Hfa 8 Gm Inhaler) 2 puffs INH Q6H PRN PRN Reason: Shortness Of Breath Or Wheezing Stop: 01/17/24 13:12 Cyanocobalamin (Cyanocobalamin 1000 Mcg/Ml Vial) 1,000 mcg IM QAM MARIO Stop: 01/19/24 08:59 Last Admin: 12/20/23 08:35 Dose: 1,000 mcg Dextrose (Dextrose 50% 50 Ml Syringe) 25 - 50 ml IV UD PRN; Protocol PRN Reason: Hypoglycemia Protocol Stop: 01/17/24 13:12 Last Admin: 12/19/23 04:53 Dose: 25 ml Diclofenac Sodium (Diclofenac Sod 1% Gel 100 Gm Tube) 4 gm EXT QID PRN; Protocol PRN Reason: musculoskeletal pain Stop: 01/17/24 13:12 Glucagon (Glucagon For Inj 1 Mg Vial) 1 mg SQ UD PRN; Protocol PRN Reason: Hypoglycemia Protocol Stop: 01/17/24 13:12 Glucose (Glucose 10 Tab/Tube) 4 - 8 tab PO UD PRN; Protocol PRN Reason: Hypoglycemia Treatment Stop: 01/17/24 13:12 Glucose (Glucose 40% Gel 15 Gm Tube) 15 - 30 gm PO UD PRN; Protocol PRN Reason: Hypoglycemia Protocol Stop: 01/17/24 13:12 Acetaminophen (Ofirmev) 1,000 mg in 100 mls @ 400 mls/hr IV Q8H PRN PRN Reason: Pain while NPO Stop: 12/21/23 13:12 Lactated Ringer's (Lr) 1,000 mls @ 80 mls/hr IV .[id number] MARIO Stop: 01/19/24 08:14 Last Admin: 12/20/23 08:35 Dose: 80 mls/hr Insulin Aspart (Insulin Aspart Per Unit Charge) 0 units SC ACHS MARIO Stop: 01/17/24 13:12 Last Admin: 12/20/23 12:26 Dose: 2 units Insulin Glargine (Lantus Per Unit Charge) 10 units SQ BID MARIO Stop: 01/17/24 20:59 Last Admin: 12/18/23 21:00 Dose: Not Given Miscellaneous (Carbohydrates For Hypoglycemia ) 15 - 30 gm PO UD PRN PRN Reason: Hypoglycemia Protocol Stop: 01/17/24 13:12 Ondansetron HCl (Ondansetron Inj 2 Mg/Ml 2 Ml Vial) 4 mg IV Q6H PRN PRN Reason: Nausea Stop: 01/17/24 13:12 Pantoprazole Sodium (Pantoprazole 40 Mg Tab) 40 mg PO BID [facility] Stop: 01/19/24 08:59 Last Admin: 12/20/23 08:40 Dose: 40 mg (4) Hypertension Hypertension type: unspecified Qualified Code(s): I10 - Essential (primary) hypertension
--- NOTE | 2023-12-20 18:38 | Billing Data ---
Date of Service December 20, 2023 Coding Level of Care Code 00575 IN/OBS DISCH 30 MIN/LESS
--- NOTE | 2023-12-20 20:52 | Discharge Summary ---
Date of Service December 20, 2023 Admission HPI Per Admitting Provider Karly is a 68-year-old male with PMH of HTN, T2DM, GERD, arthritis, nephrolithiasis, and diabetic retinopathy. She presented for ambulatory dysfunction, fatigue, SOB, and dizziness when standing x 2 days. Dizziness/ligh theadedness both at rest and with exertion. SOB is both at rest and with exertion. No prior experiences like this one, however, she does note that she was feeling short of breath when she had bronchitis a couple months ago. Patient did not take her regular morning medications today; no recent change in medications. She does endorse taking aspirin daily, but no other blood thinners; no recent NSAID use. No PMH of gastric ulcers or bleeding conditions. No family history of colon cancer; her grandson does have Crohn's. Patient endorses unintentional weight loss from 205-->188lb over the past 2 months. No change in diet. Patient is unsure when her last colonoscopy was, but reports it was greater than 5 years ago. Patient also notes she has had intermittent pain between her shoulder blades, but this has been ongoing for an extended period of time. No sick contacts. No supplemental oxygen at home. No recent injuries/falls/syncope or trauma to the abdomen or pelvis. Patient denies smoking, tobacco use, or alcohol use. Patient's vitals are stable at time of admission; normotensive; SpO2 100% on RA. 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 Patient denies fever, sweating, loss of vision, photophobia, neck pain, chest pain, chest palpitations, pleuritic CP, hemoptysis, vomiting, hematemesis, diarrhea, blood in urine/stool, or dark tarry stools/melena. Admission Exam Per Admitting Provider General: no acute distress; non-toxic appearing; well-nourished; cooperative HEENT: normocephalic, atraumatic; no scleral icterus; PERRLA; vision and hearing intact Neck: supple; no JVD; no lymphadenopathy; trachea midline Skin: Pallor; warm, dry without signs of tenting; no cyanosis; no rashes, bruising, lesions, or erythema noted on the abdomen or back CV: chest wall NTP; RRR; S1/S2 normal; no murmurs/rubs/gallops; pulses intact and symmetric at radial, DP, and PT Lungs: no acute respiratory distress; symmetrical chest wall expansion; clear breath sounds across all lung gallego w/o adventitious sounds; no wheezing ABD: Mild epigastric pain with palpation; soft; BS present; no rebound/guarding; no ascites; no distention; negative CVA tenderness MSK: Restless legs; no edema noted in the LEs b/l, nonerythematous Neuro: A&Ox3; normal mood and affect; fluent speech; no focal deficits; sensation intact in the LEs b/l Principal Diagnosis Gastritis Discharge Exam Constitutional WD/WN, vitals as above Cardiovascular RRR, no murmur, no edema Extremities: + calf tenderness (left sided) Gastrointestinal (Abdomen) normal bowel sounds, soft, nontender, no hepatosplenomegaly Psychiatric A+Ox3, euthymic affect Discharge Data Allergies Allergy/AdvReac Type Severity Reaction Status Date / Time sitagliptin [From ] Allergy Mild HEADACHE Verified 12/19/23 13:10 VOMITING Consultations 12/18/23 10:17 ED Decision to Admit Stat 12/18/23 13:13 Consult Gastroenterology Routine 12/20/23 16:49 Consult [facility] diagram clerk Routine Procedures Performed Operation Date: 12/19/23 17:00 Actual Procedures p EGD Biopsy Cytology - Jose Sultana Case, DO Ordered Studies 12/18/23 08:28 CT head/brain wo con Stat 12/18/23 10:49 CT Abd and Pelvis [CT abd pelvis IV con only] Stat Hospital Course (1) Upper GI bleed: (2) Anemia: (3) Type 2 diabetes mellitus with hyperlipidemia: (4) Hypertension: Plan ZAIRE is a 68 y/o Female presenting for SOB, Dizziness, and Gait Instability over the last 48 hours found to be profoundly anemic in the ED. 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 * PMH of profound anemia requiring transfusion * EGD 12/18 showed normal esophagus, Diffuse moderate inflammation characterized by erythema throughout the entire stomach * F/u with outpatient for Colonoscopy and dough sheeter, primary care physician * Protonix 40 mg for 3 months outpatient for acid suppression (2) Anemia * Hemodynamically stable, no SOB, able to Ambulate * Add 325mg Ferrous gluconate QD to replenish Iron outpatient * Add 1000 B12 PO supplement QD outpatient (3) T2DM w/ HLD * Last A1c at 7.5% on 11/20/2023; no need to repeat * Glucose 157 on admission * Hold metformin * Patient is normally on Tresiba 45u HS * Lantus 10 u BID while inpatient * SSI; with target BSG range 110-140mg/dL, CF 50, carb ratio 17 * Keep n.p.o. for now, then advance to T2DM diet as tolerated * BSG q6h while NPO, then BSG ACHS * Adjust regimen as needed * Resume home diabetes medication regimen on d/c (4) HTN * BP 172/84 this afternoon * Resume home BP meds on d/c Full code Advance to clear liquids/T2DM diet as tolerated VTE PPx: SCDs (hold chemical DVT PPx in setting of potential acute upper GI bleed) Total Time Total Time Spent Total Time Spent (In Minutes): see attending attestation Discharge Plan Discharge Items Patient Disposition: Home - Self-Care Reason For Visit: DIZZINESS, SOB, FATIGUE Discharge Diagnosis: Diffuse gastritis Activity: Resume your previous activity Non-emergency contact: Primary Care Provider and Curriculum Assistant Principal Call non-emergency contact if: you have any medication questions and your symptoms worsen Follow-up/Referrals: Fito Saucedo, [Primary Care Provider] - Diet: Carb Consistent or DM2 Addtl Attending Provider Instructions: You were admitted to the hospital for shortness of breath, fatigue, and dizziness with standing. You were treated with transfusions of red blood cells, pantoprazole, vitamin B12. A discharge summary will be sent to your primary care physician to ensure continuity of care. Please bring this discharge summary with you to your next office appointment so that your provider can review it at that time. Follow-up appointments: We have requested a follow-up appointment with your primary care physician within one week of discharge. You will also have a follow-up appointment with a dough sheeter within one week of discharge. Please call their office if you do not hear from them. Keep all your follow-up appointments as already scheduled. If you cannot make an appointment, notify your provider. --have repeat labwork (CBC, BMP) at your family physician's office next week. have repeat iron and B12 levels checked in about 3 months (around the 27 of March to make it easier to remember) -we'll be working on getting you back in with GI for a colonoscopy - like we discussed, the gastritis could be enough to explain the anemia, but since it wasn't overwhelming we definitely want to make sure there's not other possible sources before arriving at the conclusion that it was the gastritis Medications: Your medication list has been reviewed and reconciled upon discharge to ensure accuracy and continuity of care. An updated list of all your medications is included with your hospital discharge paperwork. Please review this list closely, and make note of any changes. We sent a new medication called Protonix to your pharmacy. Take Protonix, 40 mg, one tablet, twice a day, regularly. as we discussed, when/if it becomes clear that there was some other source of blood loss (ie if the "smoking gun" is found on colonoscopy or small bowel "camera pill" (if that's needed)) then we'd have you stop the protonix; similarly if you're feeling good/your blood counts have stayed up/your B12 and iron are rising, then we'd want you to try stopping the protonix by about early/mid march (in conjuction with guidance from your family doc) We sent a new medication called cyanocobalamin/vitamin B12 to your pharmacy, as well as iron (ferrous gluconate) -stop taking the aspirin, at least for the foreseeable future Take your medications as instructed; do not skip a dose of your medicines. Make sure all of your doctors know every medicine you are taking (including tarz-pmi-yftoaay medicines, vitamins, and supplements). Call your primary care provider before taking any new medicines (including obcz-nyi-nhqktuq medicines, vitamins, and supplements), because some of these may interact with your current medications, or may make your symptoms worse. Tell your primary care provider if you cannot afford your medications. CONTACT YOUR PRIMARY CARE PROVIDER if you experience any of the following: shortness of breath at rest or increasing shortness of breath with exertion, increased fatigue episodes or feelings of dizziness with standing Difficulty following your treatment plan, or difficulty taking medications CALL 911 OR GO TO THE EMERGENCY DEPARTMENT if you experience any of the following: Sudden, severe abdominal pain or nausea/vomiting Severe chest pain, or chest pain that radiates (moves) to your jaw or arm Sudden, severe shortness of breath or difficulty breathing Thank you for allowing us to participate in your care Pending Studies at Discharge: No Stand-Alone Forms: My [facility], Smoking Cessation Medications and DC Order Prescriptions: New pantoprazole [Protonix] 40 mg tablet,delayed release (DR/EC) 40 mg PO DAILY 30 Days Qty: 30 0RF cyanocobalamin (vitamin B-12) [Vitamin B-12] 1,000 mcg tablet 1,000 mcg PO DAILY Qty: 30 0RF ferrous gluconate 240 mg (27 mg iron) tablet 240 mg PO DAILY Qty: 30 0RF Continued pravastatin 40 mg tablet 40 mg PO DAILY Qty: 90 3RF metformin 1,000 mg tablet 1,000 mg PO BID Qty: 180 3RF carbidopa-levodopa 25-100 mg tablet 1 tab PO HS PRN (Reason: Restless leg) Qty: 90 3RF (DME) Dexcom G7 Sensor Device See Rx Instructions .Route Qty: 1 3RF Rx Instructions: As directed DX:[id number] (DME) Dexcom G7 Carriage Feeder Misc See Rx Instructions .Route Qty: 1 0RF Rx Instructions: As directed DX:[id number] diclofenac sodium 1 % gel 4 g topical QID PRN (Reason: musculoskeletal pain) Qty: 100 5RF albuterol sulfate 90 mcg/actuation Hfa Aerosol Inhaler 2 puff INHALATION Q6H PRN (Reason: Shortness Of Breath Or Wheezing) hydrochlorothiazide 12.5 mg tablet 12.5 mg PO DAILY insulin degludec [Tresiba FlexTouch U-100] 100 unit/mL (3 mL) insulin pen 45 unit subcut QPM Discontinued aspirin [Adult Aspirin Regimen] 81 mg tablet,delayed release (DR/EC) 81 mg PO DAILY Qty: 30 2RF Patient Comments: QAM Discharge Orders: Discharge Order (Routine); Ordered 12/20/23 Ordered By: Carlo Ball Admission Data Admit Date/Time: 12/18/23 11:07 Attending Provider: Perfecto Puri Admit Provider: Ramón Smith Primary Care Provider: Fito Saucedo Other Providers: Ramón Smith; Jose Bacon Other Interventions: Discharge Summary Assessment (RN) Last Done: 12/19/23 15:02
== END 2023-12-20 18:57 | disposition home or self-care (01) | DRG 378 ==
LOC: ED 08:08 → EDINP 11:07 → SUATTDRO 11:07 → 2S 13:14
DX: K29.70 Gastritis, unspecified, without bleeding; Z79.84 Long term (current) use of oral hypoglycemic drugs; I10 Essential (primary) hypertension; K92.2 Gastrointestinal hemorrhage, unspecified; D62 Acute posthemorrhagic anemia; Z88.8 Allergy status to other drugs, medicaments and biological substances; K74.60 Unspecified cirrhosis of liver; Z79.82 Long term (current) use of aspirin; K21.9 Gastro-esophageal reflux disease without esophagitis; Z83.3 Family history of diabetes mellitus; E11.319 Type 2 diabetes mellitus with unspecified diabetic retinopathy without macular edema; Z86.16 Personal history of COVID-19; E78.5 Hyperlipidemia, unspecified